=== PATIENT | female | born 1945 | race African-American/Black ===

== ENCOUNTER 2018-02-06 20:46 | Inpatient (IN) ==
[2018-02-06] MEDS ORDERED: DILTIAZEM 50 MG/10 ML VIAL IV STA (21:01)
[2018-02-06] MEDS ORDERED: MORPHINE 4 MG/1 ML VIAL IV STA (21:03)
[2018-02-06] MEDS ORDERED: ONDANSETRON 4 MG/2 ML VIAL IV STA (21:03)
[2018-02-06] MEDS ORDERED: DILTIAZEM 25 MG/5 ML VIAL IV ONE (21:11)
[2018-02-06 21:33] LABS: Basophils % 0.2 % (0.0-0.8); Eosinophils # 0.2 10*3/uL (0.0-0.87); Hematocrit 38.8 VOL% (35.7-47.0); Immature Granulocytes % 1.5 %; Immature Granulocytes Absolute 0.23 #; Lymphocytes % 6.5 % (21.3-54.2); Mean Corpuscular HGB Conc 33.5 GM/DL (32-36); Mean Corpuscular Hemoglobin 38 PG (27-34); Mean Corpuscular Volume 111.8 FL (87-102); Mean Platelet Volume 10.3 FL (9.6-12.0); Monocytes # 0.9 10*3/uL (0.11-0.8); Monocytes % 5.7 % (1.7-12.7); NRBC # 0.02 10*3/uL; Neutrophils # 13.1 10*3/uL (1.4-7.4); Neutrophils % 85.1 % (38.7-73.9); Platelet Count 156 T/CUMM (130-400); Red Blood Count 3.47 MC/CUMM (3.8-5.5); White Blood Count 15.4 T/CUMM (4-12)
[2018-02-06 21:41] LABS: PT Patient Result 10.7 SECS
[2018-02-06 21:54] LABS: Albumin 2.9 G/DL (3.4-5.0); Bilirubin,Total 0.4 MG/DL (0.2-1.0); Calcium 8.5 MG/DL (8.5-10.1); Osmolality,Calculated 291.5 MOS/KG (273-304); Potassium 3.3 MMOL/L (3.5-5.1); Total Protein 7.3 G/DL (6.4-8.3)
[2018-02-06] MEDS ORDERED: ALBUTEROL 2.5 MG/3 ML NEB RESP TX PRN (23:03)
[2018-02-06] MEDS ORDERED: ONDANSETRON 4 MG/2 ML VIAL IV PRN (23:03)
[2018-02-06] MEDS ORDERED: DEXTROSE 50% 25 GM/50 ML VIAL IV PRN (23:03)
[2018-02-06] MEDS ORDERED: GLUCAGON 1 MG VIAL IM PRN (23:03)
[2018-02-06] MEDS ORDERED: SODIUM CHLORIDE 0.9% 250 ML IV ONE (23:06)
[2018-02-06] MEDS ORDERED: MIDODRINE 5 MG TABLET PO STA (23:09)
[2018-02-06 23:15] LABS: Anisocytosis 1+; Macrocytosis 3+; Platelet Estimate Normal
[2018-02-06] MEDS ORDERED: METOPROLOL TARTRATE 5 MG/5 ML VIAL IV STA (23:34)
[2018-02-07] MEDS ORDERED: METOPROLOL TARTRATE 25 MG TABLET PO ONE (00:30)
[2018-02-07] MEDS ORDERED: METOPROLOL TARTRATE 5 MG/5 ML VIAL IV ONE (02:57)
[2018-02-07] MEDS: PHENYLEPHRINE DRIP 40 MG/250 ML PREMIX IV PRN ×2 (03:19→06:43)
[2018-02-07 07:31] LABS: Basophils % 0.2 % (0.0-0.8); Eosinophils # 0.1 10*3/uL (0.0-0.87); Eosinophils % 0.8 % (0.00-10.9); Hematocrit 40.5 VOL% (35.7-47.0); Hemoglobin 13.6 GM/DL (12.0-16.0); Immature Granulocytes % 0.9 %; Immature Granulocytes Absolute 0.15 #; Lymphocytes # 1.3 10*3/uL (1.4-4.0); Lymphocytes % 7.9 % (21.3-54.2); Mean Corpuscular HGB Conc 33.6 GM/DL (32-36); Mean Corpuscular Hemoglobin 38 PG (27-34); Mean Corpuscular Volume 112.2 FL (87-102); Mean Platelet Volume 10.4 FL (9.6-12.0); Monocytes # 1.1 10*3/uL (0.11-0.8); Monocytes % 6.7 % (1.7-12.7); NRBC # 0.06 10*3/uL; Neutrophils # 13.3 10*3/uL (1.4-7.4); Neutrophils % 83.5 % (38.7-73.9); Platelet Count 179 T/CUMM (130-400); Red Blood Count 3.61 MC/CUMM (3.8-5.5); Red Cell Distribution Width 18.6 % (9.3-17.3); White Blood Count 15.9 T/CUMM (4-12)
[2018-02-07] MEDS: INSULIN REGULAR 100 UNIT/ML SUBCUT SCH ×4 (07:48→21:58)
[2018-02-07 07:53] LABS: Calcium 8.6 MG/DL (8.5-10.1); Osmolality,Calculated 289.1 MOS/KG (273-304); Potassium 3.9 MMOL/L (3.5-5.1)
[2018-02-07 08:14] LABS: Hypochromasia 1+; Ovalocytes Slight
[2018-02-07 08:15] LABS: Macrocytosis 1+
[2018-02-07] MEDS: PHENYLEPHRINE INJ 160 MG in SODIUM CHLORIDE 0.9% 234 ML IV PRN ×3 (08:58→23:24)
[2018-02-07] MEDS ORDERED: PANTOPRAZOLE 40 MG TABLET PO SCH (09:00)
[2018-02-07] MEDS ORDERED: LEVOFLOXACIN 250 MG TABLET PO SCH (09:00)
[2018-02-07] MEDS ORDERED: MAGNESIUM CHLORIDE 64 MG TABLET PO SCH (09:00)
[2018-02-07] MEDS: NOREPINEPHRINE 16 MG in SODIUM CHLORIDE 0.9% 234 ML IV PRN (09:04)
[2018-02-07] MEDS: MIDODRINE 5 MG TABLET PO SCH ×3 (10:45→21:59)
[2018-02-07] MEDS: MULTIVITAMIN (CENTRUM) TABLET PO SCH (10:46)
[2018-02-07] MEDS: DIGOXIN 0.5 MG/2 ML AMP IV SCH ×2 (10:46→18:01)
[2018-02-07] MEDS: ASPIRIN EC 81 MG TABLET PO SCH (10:46)
[2018-02-07] MEDS: PANTOPRAZOLE 40 MG TABLET PO SCH ×2 (10:46→21:59)
[2018-02-07 11:42] LABS: Troponin I 0.048 NG/ML (0.00-0.045)
[2018-02-07] MEDS ORDERED: DIGOXIN 0.5 MG/2 ML AMP IV ONE ×2 (13:06→14:36)
[2018-02-07 17:34] LABS: Troponin I 0.102 NG/ML (0.00-0.045)
[2018-02-07] MEDS: MEROPENEM 500 MG in SODIUM CHLORIDE 0.9% 100 ML IV SCH (18:06)
[2018-02-07] MEDS: PIPERACILLIN/TAZOBACTAM 3,375 MG in SODIUM CHLORIDE 0.9% 100 ML IV SCH (19:03)
[2018-02-07] MEDS: INSULIN GLARGINE 100 UNIT/ML SUBCUT SCH (21:59)
[2018-02-07] MEDS: ACETAMINOPHEN 325 MG TABLET PO PRN (22:06)
[2018-02-08 00:56] LABS: Basophils % 0.2 % (0.0-0.8); Eosinophils # 0.1 10*3/uL (0.0-0.87); Eosinophils % 0.9 % (0.00-10.9); Hematocrit 33.9 VOL% (35.7-47.0); Hemoglobin 11.8 GM/DL (12.0-16.0); Immature Granulocytes % 0.9 %; Immature Granulocytes Absolute 0.13 #; Lymphocytes # 1.2 10*3/uL (1.4-4.0); Lymphocytes % 7.8 % (21.3-54.2); Mean Corpuscular HGB Conc 34.8 GM/DL (32-36); Mean Corpuscular Hemoglobin 38 PG (27-34); Mean Corpuscular Volume 109.4 FL (87-102); Mean Platelet Volume 10.2 FL (9.6-12.0); Monocytes # 0.9 10*3/uL (0.11-0.8); Monocytes % 5.9 % (1.7-12.7); NRBC # 0.02 10*3/uL; Neutrophils # 12.6 10*3/uL (1.4-7.4); Neutrophils % 84.3 % (38.7-73.9); Platelet Count 120 T/CUMM (130-400); White Blood Count 14.9 T/CUMM (4-12)
[2018-02-08 01:04] LABS: Calcium 7.8 MG/DL (8.5-10.1); Osmolality,Calculated 298.7 MOS/KG (273-304); Potassium 4.2 MMOL/L (3.5-5.1)
[2018-02-08 01:08] LABS: Troponin I 0.163 NG/ML (0.00-0.045)
[2018-02-08] MEDS: NOREPINEPHRINE 16 MG in SODIUM CHLORIDE 0.9% 234 ML IV PRN ×2 (03:39→22:57)
[2018-02-08] MEDS: PIPERACILLIN/TAZOBACTAM 3,375 MG in SODIUM CHLORIDE 0.9% 100 ML IV SCH (06:03)
[2018-02-08] MEDS: PHENYLEPHRINE INJ 160 MG in SODIUM CHLORIDE 0.9% 234 ML IV PRN ×2 (06:39→15:06)
[2018-02-08] MEDS ORDERED: VANCOMYCIN INJ 1,000 MG in SODIUM CHLORIDE 0.9% 250 ML IV ONE (08:09)
[2018-02-08] MEDS: INSULIN REGULAR 100 UNIT/ML SUBCUT SCH ×4 (08:10→21:24)
[2018-02-08] MEDS ORDERED: VANCOMYCIN INJ 750 MG in SODIUM CHLORIDE 0.9% 250 ML IV PRN (08:23)
[2018-02-08] MEDS ORDERED: methylPREDNISolone SOD SUC 125 MG/2 ML VIAL IV SCH (08:30)
[2018-02-08] MEDS ORDERED: VANCOMYCIN INJ 2,000 MG in SODIUM CHLORIDE 0.9% 500 ML IV ONE (09:00)
[2018-02-08 09:36] LABS: Lactic Acid 2.7 MMOL/L (0.4-2.0)
[2018-02-08] MEDS: ASPIRIN EC 81 MG TABLET PO SCH (11:06)
[2018-02-08] MEDS: ACETAMINOPHEN 325 MG TABLET PO PRN (11:06)
[2018-02-08] MEDS: MULTIVITAMIN (CENTRUM) TABLET PO SCH (11:06)
[2018-02-08] MEDS: PANTOPRAZOLE 40 MG TABLET PO SCH ×2 (11:06→21:24)
[2018-02-08] MEDS: MIDODRINE 5 MG TABLET PO SCH ×3 (11:06→21:24)
[2018-02-08] MEDS: HYDROCORTISONE 100 MG VIAL IV SCH ×2 (13:08→19:14)
[2018-02-08] MEDS: DIGOXIN 0.125 MG TABLET PO SCH (13:09)
[2018-02-08] MEDS: LIDOCAINE/PRILOCAINE CREAM 5 GM TUBE TOP SCH (14:07)
[2018-02-08] MEDS ORDERED: DIGOXIN 0.5 MG/2 ML AMP IV ONE (14:14)
[2018-02-08] MEDS: HEPARIN 5,000 UNIT/1 ML VIAL SUBCUT SCH ×2 (14:19→21:24)
[2018-02-08] MEDS: INSULIN GLARGINE 100 UNIT/ML SUBCUT SCH (21:24)
[2018-02-08] MEDS: MEROPENEM 500 MG in SODIUM CHLORIDE 0.9% 100 ML IV SCH (21:25)
[2018-02-08] MEDS: HEPARIN/NACL 0.9% 2 UNITS/ML 1,000 ML IV SCH (21:25)
[2018-02-09] MEDS: PHENYLEPHRINE INJ 160 MG in SODIUM CHLORIDE 0.9% 234 ML IV PRN (01:20)
[2018-02-09] MEDS: HYDROCORTISONE 100 MG VIAL IV SCH ×4 (02:02→17:23)
[2018-02-09 05:01] LABS: Basophils % 0.1 % (0.0-0.8); Hematocrit 35.8 VOL% (35.7-47.0); Hemoglobin 12.7 GM/DL (12.0-16.0); Immature Granulocytes % 0.7 %; Immature Granulocytes Absolute 0.13 #; Lymphocytes # 0.5 10*3/uL (1.4-4.0); Lymphocytes % 2.5 % (21.3-54.2); Mean Corpuscular HGB Conc 35.5 GM/DL (32-36); Mean Corpuscular Hemoglobin 39 PG (27-34); Mean Corpuscular Volume 109.1 FL (87-102); Mean Platelet Volume 10.8 FL (9.6-12.0); Monocytes # 0.4 10*3/uL (0.11-0.8); Monocytes % 2.3 % (1.7-12.7); NRBC # 0.07 10*3/uL; Neutrophils % 94.4 % (38.7-73.9); Platelet Count 143 T/CUMM (130-400); Red Blood Count 3.28 MC/CUMM (3.8-5.5); Red Cell Distribution Width 18.3 % (9.3-17.3)
[2018-02-09] MEDS: HEPARIN 5,000 UNIT/1 ML VIAL SUBCUT SCH ×3 (05:14→21:38)
[2018-02-09 05:21] LABS: Calcium 8.3 MG/DL (8.5-10.1); Osmolality,Calculated 292.5 MOS/KG (273-304); Potassium 4.3 MMOL/L (3.5-5.1)
[2018-02-09 05:32] LABS: Hypochromasia 1+; Lymphocytes 1 % (20-55); Macrocytosis 1+; Ovalocytes Slight; Segmented Neutrophils 98 % (50-85); Total Cells Counted 100
[2018-02-09 05:33] LABS: Platelet Estimate Adequate; Target Cells Slight
[2018-02-09] MEDS: INSULIN REGULAR 100 UNIT/ML SUBCUT SCH ×4 (08:37→21:38)
[2018-02-09] MEDS: ASPIRIN EC 81 MG TABLET PO SCH (08:38)
[2018-02-09] MEDS: PANTOPRAZOLE 40 MG TABLET PO SCH ×2 (08:38→21:38)
[2018-02-09] MEDS: MULTIVITAMIN (CENTRUM) TABLET PO SCH (08:38)
[2018-02-09] MEDS: ACETAMINOPHEN 325 MG TABLET PO PRN (10:23)
[2018-02-09] MEDS: DIGOXIN 0.125 MG TABLET PO SCH (12:33)
[2018-02-09] MEDS: MIDODRINE 5 MG TABLET PO SCH ×3 (12:33→21:40)
[2018-02-09] MEDS ORDERED: SODIUM CHLORIDE 0.9% 250 ML IV ONE (13:20)
[2018-02-09] MEDS ORDERED: MAGNESIUM HYDROXIDE SUSP 30 ML UDCUP PO ONE (15:35)
[2018-02-09] MEDS: POLYETHYLENE GLYCOL POWDER 17 GM PACK PO SCH (16:32)
[2018-02-09] MEDS: NOREPINEPHRINE 16 MG in SODIUM CHLORIDE 0.9% 234 ML IV PRN (17:24)
[2018-02-09] MEDS: INSULIN GLARGINE 100 UNIT/ML SUBCUT SCH (21:38)
[2018-02-09] MEDS: MEROPENEM 500 MG in SODIUM CHLORIDE 0.9% 100 ML IV SCH (21:39)
[2018-02-09] MEDS: HEPARIN/NACL 0.9% 2 UNITS/ML 1,000 ML IV SCH (21:41)
[2018-02-10] MEDS: HYDROCORTISONE 100 MG VIAL IV SCH ×5 (03:15→23:50)
[2018-02-10] MEDS: HEPARIN 5,000 UNIT/1 ML VIAL SUBCUT SCH ×3 (07:13→21:14)
[2018-02-10 07:46] LABS: Basophils % 0.1 % (0.0-0.8); Hematocrit 33.6 VOL% (35.7-47.0); Hemoglobin 11.6 GM/DL (12.0-16.0); Immature Granulocytes % 0.9 %; Immature Granulocytes Absolute 0.18 #; Lymphocytes # 0.5 10*3/uL (1.4-4.0); Lymphocytes % 2.2 % (21.3-54.2); Mean Corpuscular HGB Conc 34.5 GM/DL (32-36); Mean Corpuscular Hemoglobin 38 PG (27-34); Mean Corpuscular Volume 109.1 FL (87-102); Mean Platelet Volume 10.9 FL (9.6-12.0); Monocytes # 0.6 10*3/uL (0.11-0.8); Monocytes % 3.1 % (1.7-12.7); NRBC # 0.06 10*3/uL; Neutrophils # 19.1 10*3/uL (1.4-7.4); Neutrophils % 93.7 % (38.7-73.9); Platelet Count 132 T/CUMM (130-400); Red Blood Count 3.08 MC/CUMM (3.8-5.5); Red Cell Distribution Width 18.6 % (9.3-17.3); White Blood Count 20.4 T/CUMM (4-12)
[2018-02-10] MEDS: INSULIN REGULAR 100 UNIT/ML SUBCUT SCH ×4 (07:53→20:57)
[2018-02-10 08:18] LABS: Band Neutrophils 2 % (0-10); Calcium 8.6 MG/DL (8.5-10.1); Lymphocytes 2 % (20-55); Nucleated Red Blood Cells 1 (0-5); Osmolality,Calculated 305.4 MOS/KG (273-304); Potassium 4.5 MMOL/L (3.5-5.1); Segmented Neutrophils 94 % (50-85); Total Cells Counted 100
[2018-02-10 08:19] LABS: Hypochromasia 1+; Macrocytosis Slight; Platelet Estimate Normal
[2018-02-10] MEDS: PANTOPRAZOLE 40 MG TABLET PO SCH ×2 (10:33→20:59)
[2018-02-10] MEDS: ASPIRIN EC 81 MG TABLET PO SCH (10:34)
[2018-02-10] MEDS: MIDODRINE 5 MG TABLET PO SCH ×3 (10:34→20:59)
[2018-02-10] MEDS: MULTIVITAMIN (CENTRUM) TABLET PO SCH (10:34)
[2018-02-10] MEDS: POLYETHYLENE GLYCOL POWDER 17 GM PACK PO SCH (10:34)
[2018-02-10] MEDS: LIDOCAINE/PRILOCAINE CREAM 5 GM TUBE TOP SCH (10:34)
[2018-02-10] MEDS: ACETAMINOPHEN 325 MG TABLET PO PRN (12:44)
[2018-02-10] MEDS: DIGOXIN 0.125 MG TABLET PO SCH (12:47)
[2018-02-10] MEDS: NOREPINEPHRINE 16 MG in SODIUM CHLORIDE 0.9% 234 ML IV PRN (17:17)
[2018-02-10] MEDS: MEGESTROL 40 MG TABLET PO SCH (18:29)
[2018-02-10] MEDS: BISOPROLOL 5 MG TABLET PO SCH ×2 (18:37→18:48)
[2018-02-10] MEDS: INSULIN GLARGINE 100 UNIT/ML SUBCUT SCH (20:58)
[2018-02-10] MEDS ORDERED: VANCOMYCIN INJ 750 MG in SODIUM CHLORIDE 0.9% 250 ML IV ONE (21:00)
[2018-02-10] MEDS: MEROPENEM 500 MG in SODIUM CHLORIDE 0.9% 100 ML IV SCH (21:01)
[2018-02-11 04:37] LABS: Basophils % 0.1 % (0.0-0.8); Hematocrit 33.3 VOL% (35.7-47.0); Hemoglobin 11.4 GM/DL (12.0-16.0); Immature Granulocytes % 0.9 %; Immature Granulocytes Absolute 0.13 #; Lymphocytes # 0.5 10*3/uL (1.4-4.0); Lymphocytes % 3.2 % (21.3-54.2); Mean Corpuscular HGB Conc 34.2 GM/DL (32-36); Mean Corpuscular Hemoglobin 38 PG (27-34); Mean Corpuscular Volume 109.9 FL (87-102); Mean Platelet Volume 11.1 FL (9.6-12.0); Monocytes # 0.7 10*3/uL (0.11-0.8); Monocytes % 4.5 % (1.7-12.7); NRBC # 0.04 10*3/uL; Neutrophils # 13.1 10*3/uL (1.4-7.4); Neutrophils % 91.3 % (38.7-73.9); Platelet Count 118 T/CUMM (130-400); Red Blood Count 3.03 MC/CUMM (3.8-5.5); Red Cell Distribution Width 18.5 % (9.3-17.3); White Blood Count 14.4 T/CUMM (4-12)
[2018-02-11 04:54] LABS: Calcium 8.6 MG/DL (8.5-10.1); Osmolality,Calculated 295.3 MOS/KG (273-304); Potassium 4.2 MMOL/L (3.5-5.1)
[2018-02-11 05:42] LABS: Anisocytosis 3+; Band Neutrophils 3 % (0-10); Eosinophils 1 % (0-10); Hypochromasia 2+; Lymphocytes 3 % (20-55); Macrocytosis 2+; Microcytosis 1+; Ovalocytes Few; Platelet Estimate Decreased; Segmented Neutrophils 90 % (50-85); Target Cells 2+; Total Cells Counted 100
[2018-02-11] MEDS: HEPARIN 5,000 UNIT/1 ML VIAL SUBCUT SCH ×3 (05:53→21:57)
[2018-02-11] MEDS: HYDROCORTISONE 100 MG VIAL IV SCH ×3 (05:53→17:53)
[2018-02-11] MEDS: INSULIN REGULAR 100 UNIT/ML SUBCUT SCH ×4 (07:35→21:58)
[2018-02-11 07:36] LABS: S. Pneumo Serotype 1 2.1 mcg/mL (>=2.3); S. Pneumo Serotype 10A 0.8 mcg/mL (>=2.9); S. Pneumo Serotype 11A 0.1 mcg/mL (>=2.4); S. Pneumo Serotype 12F < 0.1 mcg/mL (>=0.6); S. Pneumo Serotype 14 1.7 mcg/mL (>=7.0); S. Pneumo Serotype 15B 1.2 mcg/mL (>=3.3); S. Pneumo Serotype 17F 0.8 mcg/mL (>=7.8); S. Pneumo Serotype 18C 0.2 mcg/mL (>=3.3); S. Pneumo Serotype 19A 1.9 mcg/mL (>=17.1); S. Pneumo Serotype 19F 2.6 mcg/mL (>=15.0); S. Pneumo Serotype 2 0.3 mcg/mL (>=1.0); S. Pneumo Serotype 20 0.2 mcg/mL (>=1.3); S. Pneumo Serotype 22F 3.1 mcg/mL (>=7.2); S. Pneumo Serotype 3 0.1 mcg/mL (>=1.8); S. Pneumo Serotype 33F 0.3 mcg/mL (>=1.7); S. Pneumo Serotype 4 < 0.1 mcg/mL (>=0.6); S. Pneumo Serotype 6B 0.8 mcg/mL (>=4.7); S. Pneumo Serotype 7F 1.4 mcg/mL (>=3.2); S. Pneumo Serotype 8 0.5 mcg/mL (>=2.9); S. Pneumo Serotype 9N 0.4 mcg/mL (>=9.2); S. Pneumo Serotype 9V 0.8 mcg/mL (>=2.6)
[2018-02-11] MEDS: HEPARIN/NACL 0.9% 2 UNITS/ML 1,000 ML IV SCH (07:36)
[2018-02-11] MEDS: MIDODRINE 5 MG TABLET PO SCH ×3 (09:47→21:57)
[2018-02-11] MEDS: MEGESTROL 40 MG TABLET PO SCH (09:47)
[2018-02-11] MEDS: BISOPROLOL 5 MG TABLET PO SCH (09:47)
[2018-02-11] MEDS: MULTIVITAMIN (CENTRUM) TABLET PO SCH (09:47)
[2018-02-11] MEDS: PANTOPRAZOLE 40 MG TABLET PO SCH ×2 (09:47→21:57)
[2018-02-11] MEDS: ASPIRIN EC 81 MG TABLET PO SCH (09:48)
[2018-02-11] MEDS: POLYETHYLENE GLYCOL POWDER 17 GM PACK PO SCH (09:49)
[2018-02-11] MEDS: FLUCONAZOLE 100 MG TABLET PO SCH (15:09)
[2018-02-11] MEDS: NYSTATIN 500,000 UNIT/5 ML UDCUP SWISH/SWAL SCH ×2 (16:41→21:57)
[2018-02-11] MEDS: INSULIN GLARGINE 100 UNIT/ML SUBCUT SCH (21:58)
[2018-02-12] MEDS: HYDROCORTISONE 100 MG VIAL IV SCH ×4 (00:21→17:11)
[2018-02-12 03:42] LABS: Basophils % 0.1 % (0.0-0.8); Hematocrit 31.4 VOL% (35.7-47.0); Immature Granulocytes Absolute 0.12 #; Lymphocytes # 0.5 10*3/uL (1.4-4.0); Lymphocytes % 4.1 % (21.3-54.2); Mean Corpuscular Hemoglobin 38 PG (27-34); Mean Corpuscular Volume 107.2 FL (87-102); Mean Platelet Volume 10.4 FL (9.6-12.0); Monocytes # 0.4 10*3/uL (0.11-0.8); Monocytes % 3.8 % (1.7-12.7); Neutrophils # 10.5 10*3/uL (1.4-7.4); Red Blood Count 2.93 MC/CUMM (3.8-5.5); Red Cell Distribution Width 18.6 % (9.3-17.3); White Blood Count 11.5 T/CUMM (4-12)
[2018-02-12 03:44] LABS: Platelet Count 91 T/CUMM (130-400)
[2018-02-12 04:25] LABS: Lymphocytes 5 % (20-55); Segmented Neutrophils 93 % (50-85)
[2018-02-12 04:28] LABS: Osmolality,Calculated 299.7 MOS/KG (273-304); Potassium 4.7 MMOL/L (3.5-5.1)
[2018-02-12] MEDS: HEPARIN 5,000 UNIT/1 ML VIAL SUBCUT SCH ×2 (04:30→17:11)
[2018-02-12] MEDS: ACETAMINOPHEN 325 MG TABLET PO PRN (04:30)
[2018-02-12 04:31] LABS: Reactive Lymphocytes 3+
[2018-02-12 04:32] LABS: Hypochromasia Slight; Platelet Estimate Decreased; Total Cells Counted 100
[2018-02-12] MEDS: LIDOCAINE/PRILOCAINE CREAM 5 GM TUBE TOP SCH ×2 (07:17→08:51)
[2018-02-12] MEDS: INSULIN REGULAR 100 UNIT/ML SUBCUT SCH ×4 (08:03→21:22)
[2018-02-12] MEDS ORDERED: ALBUMIN 25% 25 GM in PREMIX 1 EACH IV ONE (08:30)
[2018-02-12] MEDS: BISOPROLOL 5 MG TABLET PO SCH (08:58)
[2018-02-12] MEDS: PANTOPRAZOLE 40 MG TABLET PO SCH ×2 (08:58→21:22)
[2018-02-12] MEDS: MULTIVITAMIN (CENTRUM) TABLET PO SCH (08:58)
[2018-02-12] MEDS: MIDODRINE 5 MG TABLET PO SCH ×3 (08:58→21:22)
[2018-02-12] MEDS: ASPIRIN EC 81 MG TABLET PO SCH (08:59)
[2018-02-12] MEDS: FLUCONAZOLE 100 MG TABLET PO SCH (08:59)
[2018-02-12] MEDS: MEGESTROL 40 MG TABLET PO SCH (08:59)
[2018-02-12] MEDS: NYSTATIN 500,000 UNIT/5 ML UDCUP SWISH/SWAL SCH ×4 (08:59→21:23)
[2018-02-12] MEDS: POLYETHYLENE GLYCOL POWDER 17 GM PACK PO SCH (08:59)
[2018-02-12] MEDS ORDERED: CYCLOBENZAPRINE 10 MG TABLET PO ONE (09:00)
[2018-02-12] MEDS: HEPARIN/NACL 0.9% 2 UNITS/ML 1,000 ML IV SCH (11:24)
[2018-02-12] MEDS: FLUDROCORTISONE 0.1 MG TABLET PO SCH ×2 (15:30→21:22)
[2018-02-13] MEDS: HYDROCORTISONE 100 MG VIAL IV SCH ×5 (00:05→22:11)
[2018-02-13] MEDS: HEPARIN 5,000 UNIT/1 ML VIAL SUBCUT SCH ×2 (06:21→17:30)
[2018-02-13] MEDS: FLUCONAZOLE 100 MG TABLET PO SCH (09:02)
[2018-02-13] MEDS: FLUDROCORTISONE 0.1 MG TABLET PO SCH ×2 (09:02→22:14)
[2018-02-13] MEDS: MIDODRINE 5 MG TABLET PO SCH ×3 (09:02→22:13)
[2018-02-13] MEDS: BISOPROLOL 5 MG TABLET PO SCH (09:03)
[2018-02-13] MEDS: POLYETHYLENE GLYCOL POWDER 17 GM PACK PO SCH (09:05)
[2018-02-13] MEDS: ASPIRIN EC 81 MG TABLET PO SCH (09:05)
[2018-02-13] MEDS: MEGESTROL 40 MG TABLET PO SCH (09:05)
[2018-02-13] MEDS: PANTOPRAZOLE 40 MG TABLET PO SCH ×2 (09:05→22:14)
[2018-02-13] MEDS: MULTIVITAMIN (CENTRUM) TABLET PO SCH (09:05)
[2018-02-13] MEDS: NYSTATIN 500,000 UNIT/5 ML UDCUP SWISH/SWAL SCH ×4 (09:08→22:15)
[2018-02-13] MEDS: INSULIN REGULAR 100 UNIT/ML SUBCUT SCH ×4 (09:12→22:14)
[2018-02-13] MEDS: CYANOCOBALAMIN 5000 MCG SL SCH (09:14)
[2018-02-13] MEDS: Fluticasone/Vilanterol [Breo Ellipta 200-25 Mcg Inh] INH SCH (09:14)
[2018-02-14] MEDS: HYDROCORTISONE 100 MG VIAL IV SCH ×2 (03:10→09:48)
[2018-02-14] MEDS: HEPARIN 5,000 UNIT/1 ML VIAL SUBCUT SCH (06:04)
[2018-02-14] MEDS: POLYETHYLENE GLYCOL POWDER 17 GM PACK PO SCH (09:44)
[2018-02-14] MEDS: MIDODRINE 5 MG TABLET PO SCH (09:44)
[2018-02-14] MEDS: ASPIRIN EC 81 MG TABLET PO SCH (09:45)
[2018-02-14] MEDS: MEGESTROL 40 MG TABLET PO SCH (09:45)
[2018-02-14] MEDS: MULTIVITAMIN (CENTRUM) TABLET PO SCH (09:45)
[2018-02-14] MEDS: PANTOPRAZOLE 40 MG TABLET PO SCH (09:45)
[2018-02-14] MEDS: NYSTATIN 500,000 UNIT/5 ML UDCUP SWISH/SWAL SCH (09:46)
[2018-02-14] MEDS: FLUDROCORTISONE 0.1 MG TABLET PO SCH (09:46)
[2018-02-14] MEDS: BISOPROLOL 5 MG TABLET PO SCH (09:46)
[2018-02-14] MEDS: CYANOCOBALAMIN 5000 MCG SL SCH (09:47)
[2018-02-14] MEDS: INSULIN REGULAR 100 UNIT/ML SUBCUT SCH ×2 (09:52→13:45)
[2018-02-14 11:56] VITALS: BP 101/61
[2018-02-14] MEDS: Fluticasone/Vilanterol [Breo Ellipta 200-25 Mcg Inh] INH SCH (12:01)
== END 2018-02-14 14:52 | DRG 308 ==
LOC: EDBD → EDUNIT# → N.ED 20:46 → SUATTDRO 23:03 → N.EDINP 23:03 → N.ICU 23:49 → N.2E 02-12 14:13
PROVIDERS: ADMIT Internal Medicine Cardiovascular Disease; ATTEND Internal Medicine

== ENCOUNTER 2018-03-08 17:44 | Inpatient (IN) ==
[2018-03-08 18:54] LABS: Basophils % 0.2 % (0.0-0.8); Eosinophils % 0.2 % (0.00-10.9); Hemoglobin 8.9 GM/DL (12.0-16.0); Immature Granulocytes % 2.5 %; Lymphocytes # 1.2 10*3/uL (1.4-4.0); Lymphocytes % 9.8 % (21.3-54.2); Mean Corpuscular HGB Conc 31.8 GM/DL (32-36); Mean Corpuscular Hemoglobin 37 PG (27-34); Mean Corpuscular Volume 115.7 FL (87-102); Mean Platelet Volume 10.7 FL (9.6-12.0); Monocytes # 1.5 10*3/uL (0.11-0.8); Monocytes % 12.2 % (1.7-12.7); NRBC # 0.54 10*3/uL; Neutrophils % 75.1 % (38.7-73.9); Platelet Count 322 T/CUMM (130-400); Red Blood Count 2.42 MC/CUMM (3.8-5.5); Red Cell Distribution Width 17.8 % (9.3-17.3); White Blood Count 11.9 T/CUMM (4-12)
[2018-03-08] MEDS ORDERED: SODIUM CHLORIDE 0.9% 500 ML IV STA (19:19)
[2018-03-08] MEDS ORDERED: DILTIAZEM 50 MG/10 ML VIAL IV STA (19:20)
[2018-03-08] MEDS ORDERED: DILTIAZEM 25 MG/5 ML VIAL IV STA (19:27)
[2018-03-08] MEDS ORDERED: DILTIAZEM INJ 100 MG in SODIUM CHLORIDE 0.9% 100 ML IV SCH (19:30)
[2018-03-08 19:40] LABS: Alanine Aminotransferase 22 U/L (13-56); Albumin 2.7 G/DL (3.4-5.0); Alkaline Phosphatase 335 U/L (45-117); Amylase 60 U/L (25-115); Aspartate Amino Transferase 23 U/L (0-37); Blood Urea Nitrogen 11 MG/DL (7-18); Calcium 8.6 MG/DL (8.5-10.1); Glucose 184 MG/DL (74-106); Osmolality,Calculated 289.8 MOS/KG (273-304); Potassium 3.4 MMOL/L (3.5-5.1); Sodium 144 MMOL/L (136-145); Total Protein 6.4 G/DL (6.4-8.3)
[2018-03-08 19:43] LABS: INR 1.3; PT Patient Result 13.9 SECS
[2018-03-08 19:44] LABS: Troponin I 0.083 NG/ML (0.00-0.045)
[2018-03-08 19:49] LABS: Partial Thromboplastin Time 56.7 SECS (0-40)
[2018-03-08] MEDS ORDERED: traZODone 50 MG TABLET PO PRN (20:38)
[2018-03-08] MEDS ORDERED: NOREPINEPHRINE 8 MG in SODIUM CHLORIDE 0.9% 242 ML IV PRN (20:55)
[2018-03-08 21:25] LABS: Anisocytosis 1+; Microcytosis Slight; Polychromasia 1+
[2018-03-08 21:26] LABS: Platelet Estimate Adequate
[2018-03-08] MEDS ORDERED: VANCOMYCIN INJ 1,000 MG in SODIUM CHLORIDE 0.9% 250 ML IV ONE (23:30)
[2018-03-09] MEDS: PHENYLEPHRINE DRIP 40 MG/250 ML PREMIX IV PRN ×9 (00:30→20:46)
[2018-03-09] MEDS: FLUDROCORTISONE 0.1 MG TABLET PO SCH ×3 (01:03→21:35)
[2018-03-09] MEDS: MIDODRINE 5 MG TABLET PO SCH ×4 (01:03→21:34)
[2018-03-09] MEDS: INSULIN REGULAR 100 UNIT/ML SUBCUT SCH ×5 (01:04→21:33)
[2018-03-09] MEDS: PANTOPRAZOLE 40 MG TABLET PO SCH ×3 (01:04→21:34)
[2018-03-09] MEDS: ENOXAPARIN 100 MG/ML SYRINGE SUBCUT SCH ×2 (01:04→21:35)
[2018-03-09] MEDS: clonazePAM 0.5 MG TABLET PO SCH ×2 (01:04→21:35)
[2018-03-09 01:08] LABS: Basophils % 0.1 % (0.0-0.8); Eosinophils % 0.4 % (0.00-10.9); Hematocrit 26.7 VOL% (35.7-47.0); Hemoglobin 8.6 GM/DL (12.0-16.0); Immature Granulocytes % 1.8 %; Immature Granulocytes Absolute 0.18 #; Lymphocytes # 1.3 10*3/uL (1.4-4.0); Lymphocytes % 13.3 % (21.3-54.2); Mean Corpuscular HGB Conc 32.2 GM/DL (32-36); Mean Corpuscular Hemoglobin 37 PG (27-34); Mean Corpuscular Volume 116.1 FL (87-102); Mean Platelet Volume 10.4 FL (9.6-12.0); Monocytes # 1.3 10*3/uL (0.11-0.8); Monocytes % 12.5 % (1.7-12.7); Neutrophils # 7.2 10*3/uL (1.4-7.4); Neutrophils % 71.9 % (38.7-73.9); Platelet Count 284 T/CUMM (130-400); Red Cell Distribution Width 18.2 % (9.3-17.3); White Blood Count 10.1 T/CUMM (4-12)
[2018-03-09 01:27] LABS: Platelet Estimate Normal
[2018-03-09 01:28] LABS: Anisocytosis Slight; Macrocytosis 3+
[2018-03-09 01:39] LABS: Troponin I 0.083 NG/ML (0.00-0.045)
[2018-03-09 02:22] LABS: Thyroid Stimulating Hormone 3.43 uIU/ml (0.358-3.74)
[2018-03-09 02:26] LABS: % Iron Saturation 94.1 % (18-50); Ferritin 3600.7 ng/ml (8-252)
[2018-03-09 02:37] LABS: Sedimentation Rate-Westergren 48 MM/HR (0-30)
[2018-03-09 03:04] LABS: Folate 14.1 NG/ML (5.4-24.0); Vitamin B12 > 2000 PG/ML (211-911)
[2018-03-09] MEDS ORDERED: AMIODARONE INJ 450 MG in DEXTROSE 5% 241 ML IV SCH ×2 (03:30→09:30)
[2018-03-09] MEDS ORDERED: AMIODARONE INJ 150 MG in DEXTROSE 5% 100 ML IV ONE (03:30)
[2018-03-09 06:01] LABS: Troponin I 0.078 NG/ML (0.00-0.045)
[2018-03-09] MEDS ORDERED: CALCIUM ACETATE 667 MG CAPSULE PO SCH (08:00)
[2018-03-09] MEDS: MEGESTROL 40 MG TABLET PO SCH (08:03)
[2018-03-09] MEDS: ASPIRIN EC 81 MG TABLET PO SCH (08:04)
[2018-03-09] MEDS: POLYETHYLENE GLYCOL POWDER 17 GM PACK PO SCH (08:05)
[2018-03-09] MEDS ORDERED: NON-FORMULARY MEDICATION (Cyanocobalamin (Vitamin B-12) [Vitamin B-12] 5,000 MCG) SL SCH (09:00)
[2018-03-09 09:25] LABS: Hemoglobin A1 (Alkaline) 97.5 % (96.5-98.5); Hemoglobin A2 (Alkaline) 2.5 % (1.5-3.5)
[2018-03-09] MEDS ORDERED: DEXTROSE 5% IV ONE (11:00)
[2018-03-09] MEDS ORDERED: SODIUM PHOSPHATE IV ONE (11:00)
[2018-03-09] MEDS: ONDANSETRON 4 MG/2 ML VIAL IV PRN (14:33)
[2018-03-09] MEDS: BISOPROLOL 5 MG TABLET PO SCH ×2 (14:34→21:34)
[2018-03-09] MEDS: PHENYLEPHRINE INJ 160 MG in SODIUM CHLORIDE 0.9% 234 ML IV PRN (23:16)
[2018-03-10 05:58] LABS: Basophils % 0.2 % (0.0-0.8); Eosinophils # 0.2 10*3/uL (0.0-0.87); Eosinophils % 1.7 % (0.00-10.9); Hematocrit 27.5 VOL% (35.7-47.0); Hemoglobin 8.8 GM/DL (12.0-16.0); Immature Granulocytes % 2.8 %; Lymphocytes # 1.4 10*3/uL (1.4-4.0); Lymphocytes % 12.8 % (21.3-54.2); Mean Corpuscular Hemoglobin 37 PG (27-34); Mean Corpuscular Volume 116.5 FL (87-102); Mean Platelet Volume 10.2 FL (9.6-12.0); Monocytes # 1.2 10*3/uL (0.11-0.8); Monocytes % 10.9 % (1.7-12.7); NRBC # 1.03 10*3/uL; Neutrophils # 7.8 10*3/uL (1.4-7.4); Neutrophils % 71.6 % (38.7-73.9); Platelet Count 268 T/CUMM (130-400); Red Blood Count 2.36 MC/CUMM (3.8-5.5); Red Cell Distribution Width 18.8 % (9.3-17.3); White Blood Count 10.9 T/CUMM (4-12)
[2018-03-10 06:29] LABS: Calcium 7.5 MG/DL (8.5-10.1); Osmolality,Calculated 290.1 MOS/KG (273-304); Potassium 3.2 MMOL/L (3.5-5.1)
[2018-03-10 06:30] LABS: Hypochromasia 1+; Macrocytosis Slight; Ovalocytes Slight; Platelet Estimate Adequate; Polychromasia Slight
[2018-03-10] MEDS: INSULIN REGULAR 100 UNIT/ML SUBCUT SCH ×4 (07:44→20:51)
[2018-03-10] MEDS ORDERED: METOPROLOL TARTRATE 5 MG/5 ML VIAL IV ONE ×2 (07:49→09:55)
[2018-03-10] MEDS: CALCIUM ACETATE 667 MG CAPSULE PO SCH ×3 (08:03→17:21)
[2018-03-10] MEDS: PHENYLEPHRINE INJ 160 MG in SODIUM CHLORIDE 0.9% 234 ML IV PRN ×2 (08:08→17:44)
[2018-03-10] MEDS: MIDODRINE 5 MG TABLET PO SCH ×3 (08:11→20:50)
[2018-03-10] MEDS: BISOPROLOL 5 MG TABLET PO SCH ×2 (08:11→20:47)
[2018-03-10] MEDS: PANTOPRAZOLE 40 MG TABLET PO SCH ×2 (08:11→20:47)
[2018-03-10] MEDS: FLUDROCORTISONE 0.1 MG TABLET PO SCH ×2 (08:11→20:47)
[2018-03-10] MEDS: ASPIRIN EC 81 MG TABLET PO SCH (08:12)
[2018-03-10] MEDS: MEGESTROL 40 MG TABLET PO SCH (08:12)
[2018-03-10] MEDS: POLYETHYLENE GLYCOL POWDER 17 GM PACK PO SCH (08:12)
[2018-03-10] MEDS: LIDOCAINE/PRILOCAINE CREAM 5 GM TUBE TOP SCH (08:13)
[2018-03-10] MEDS ORDERED: POTASSIUM CHLORIDE 20 MEQ TABLET PO ONE (10:30)
[2018-03-10] MEDS ORDERED: DIGOXIN 0.5 MG/2 ML AMP IV ONE (10:56)
[2018-03-10] MEDS: ONDANSETRON 4 MG/2 ML VIAL IV PRN (12:15)
[2018-03-10] MEDS: DILTIAZEM 30 MG TABLET PO SCH ×2 (14:35→20:47)
[2018-03-10] MEDS ORDERED: HEPARIN 10,000 UNIT/10 ML VIAL IV SCH (19:30)
[2018-03-10] MEDS: clonazePAM 0.5 MG TABLET PO SCH (20:47)
[2018-03-10] MEDS: ACETAMINOPHEN/CODEINE 300-30 MG TABLET PO PRN (20:50)
[2018-03-10] MEDS: ENOXAPARIN 100 MG/ML SYRINGE SUBCUT SCH (20:51)
[2018-03-11] MEDS: DILTIAZEM 30 MG TABLET PO SCH ×4 (01:59→21:24)
[2018-03-11] MEDS: PHENYLEPHRINE INJ 160 MG in SODIUM CHLORIDE 0.9% 234 ML IV PRN ×2 (04:11→14:30)
[2018-03-11] MEDS: INSULIN REGULAR 100 UNIT/ML SUBCUT SCH ×4 (08:36→21:26)
[2018-03-11] MEDS: POLYETHYLENE GLYCOL POWDER 17 GM PACK PO SCH (08:44)
[2018-03-11] MEDS: CALCIUM ACETATE 667 MG CAPSULE PO SCH ×3 (08:44→17:08)
[2018-03-11] MEDS: PANTOPRAZOLE 40 MG TABLET PO SCH ×2 (08:44→21:24)
[2018-03-11] MEDS: MEGESTROL 40 MG TABLET PO SCH (08:44)
[2018-03-11] MEDS: ASPIRIN EC 81 MG TABLET PO SCH (08:44)
[2018-03-11] MEDS: DOCUSATE SODIUM 100 MG CAPSULE PO PRN (08:44)
[2018-03-11] MEDS: FLUDROCORTISONE 0.1 MG TABLET PO SCH ×2 (09:00→21:23)
[2018-03-11] MEDS: BISOPROLOL 5 MG TABLET PO SCH ×2 (09:00→21:26)
[2018-03-11] MEDS: MIDODRINE 5 MG TABLET PO SCH ×3 (09:20→21:23)
[2018-03-11] MEDS ORDERED: ALBUMIN 5% 12.5 GM in PREMIX 1 EACH IV ONE ×2 (10:00→16:44)
[2018-03-11] MEDS: WARFARIN 5 MG TABLET PO SCH (17:08)
[2018-03-11] MEDS: ACETAMINOPHEN/CODEINE 300-30 MG TABLET PO PRN (17:24)
[2018-03-11] MEDS: ENOXAPARIN 100 MG/ML SYRINGE SUBCUT SCH (21:23)
[2018-03-11] MEDS: clonazePAM 0.5 MG TABLET PO SCH (21:23)
[2018-03-12] MEDS: DILTIAZEM 30 MG TABLET PO SCH ×4 (02:45→20:58)
[2018-03-12 05:00] LABS: INR 1.4; PT Patient Result 14.7 SECS
[2018-03-12 05:03] LABS: Basophils # 0.1 10*3/uL (0.0-0.2); Basophils % 0.4 % (0.0-0.8); Eosinophils # 0.9 10*3/uL (0.0-0.87); Eosinophils % 6.6 % (0.00-10.9); Hematocrit 26.6 VOL% (35.7-47.0); Hemoglobin 8.2 GM/DL (12.0-16.0); Immature Granulocytes % 1.9 %; Immature Granulocytes Absolute 0.27 #; Lymphocytes # 0.9 10*3/uL (1.4-4.0); Lymphocytes % 6.1 % (21.3-54.2); Mean Corpuscular HGB Conc 30.8 GM/DL (32-36); Mean Corpuscular Hemoglobin 36 PG (27-34); Mean Corpuscular Volume 116.2 FL (87-102); Mean Platelet Volume 10.8 FL (9.6-12.0); Monocytes % 6.8 % (1.7-12.7); NRBC # 0.21 10*3/uL; Neutrophils # 11.1 10*3/uL (1.4-7.4); Neutrophils % 78.2 % (38.7-73.9); Platelet Count 234 T/CUMM (130-400); Red Blood Count 2.29 MC/CUMM (3.8-5.5); Red Cell Distribution Width 18.7 % (9.3-17.3); White Blood Count 14.2 T/CUMM (4-12)
[2018-03-12 05:27] LABS: Calcium 8.1 MG/DL (8.5-10.1); Osmolality,Calculated 288.3 MOS/KG (273-304); Potassium 3.6 MMOL/L (3.5-5.1)
[2018-03-12] MEDS: INSULIN REGULAR 100 UNIT/ML SUBCUT SCH ×4 (08:27→20:59)
[2018-03-12] MEDS: ASPIRIN EC 81 MG TABLET PO SCH (08:51)
[2018-03-12] MEDS: POLYETHYLENE GLYCOL POWDER 17 GM PACK PO SCH (08:51)
[2018-03-12] MEDS: PANTOPRAZOLE 40 MG TABLET PO SCH ×2 (08:51→20:59)
[2018-03-12] MEDS: MEGESTROL 40 MG TABLET PO SCH (08:51)
[2018-03-12] MEDS: CALCIUM ACETATE 667 MG CAPSULE PO SCH ×3 (08:52→17:23)
[2018-03-12] MEDS: BISACODYL 5 MG TABLET PO SCH (09:55)
[2018-03-12] MEDS ORDERED: ALBUMIN 25% 25 GM in PREMIX 1 EACH IV ONE (10:14)
[2018-03-12] MEDS ORDERED: DEXTROSE 50% 25 GM/50 ML VIAL IV PRN (11:19)
[2018-03-12] MEDS ORDERED: GLUCAGON 1 MG VIAL IM PRN (11:19)
[2018-03-12] MEDS: MIDODRINE 5 MG TABLET PO SCH ×3 (11:49→21:11)
[2018-03-12] MEDS: FLUDROCORTISONE 0.1 MG TABLET PO SCH ×2 (11:49→20:58)
[2018-03-12] MEDS: BISOPROLOL 5 MG TABLET PO SCH ×2 (11:49→20:59)
[2018-03-12] MEDS: INSULIN GLARGINE 100 UNIT/ML SUBCUT SCH (12:03)
[2018-03-12] MEDS: DIGOXIN 0.125 MG TABLET PO SCH (12:06)
[2018-03-12] MEDS: PHENYLEPHRINE INJ 160 MG in SODIUM CHLORIDE 0.9% 234 ML IV PRN (12:15)
[2018-03-12] MEDS: LIDOCAINE/PRILOCAINE CREAM 5 GM TUBE TOP SCH (12:16)
[2018-03-12] MEDS ORDERED: COSYNTROPIN 0.25 MG VIAL IV ONE (12:26)
[2018-03-12 12:38] LABS: Lactic Acid 2.7 MMOL/L (0.4-2.0)
[2018-03-12] MEDS ORDERED: VANCOMYCIN INJ 1,000 MG in SODIUM CHLORIDE 0.9% 250 ML IV PRN (15:20)
[2018-03-12] MEDS: MEROPENEM 500 MG in SODIUM CHLORIDE 0.9% 100 ML IV SCH (15:40)
[2018-03-12] MEDS ORDERED: VANCOMYCIN INJ 2,500 MG in SODIUM CHLORIDE 0.9% 500 ML IV ONE (17:00)
[2018-03-12] MEDS: WARFARIN 5 MG TABLET PO SCH (17:10)
[2018-03-12] MEDS: ENOXAPARIN 100 MG/ML SYRINGE SUBCUT SCH (20:59)
[2018-03-12] MEDS: clonazePAM 0.5 MG TABLET PO SCH (20:59)
[2018-03-13] MEDS: DILTIAZEM 30 MG TABLET PO SCH ×4 (03:01→21:10)
[2018-03-13 05:01] LABS: Basophils % 0.3 % (0.0-0.8); Eosinophils % 7.1 % (0.00-10.9); Hematocrit 25.7 VOL% (35.7-47.0); Hemoglobin 7.9 GM/DL (12.0-16.0); Immature Granulocytes % 1.5 %; Immature Granulocytes Absolute 0.21 #; Lymphocytes # 0.7 10*3/uL (1.4-4.0); Lymphocytes % 4.6 % (21.3-54.2); Mean Corpuscular HGB Conc 30.7 GM/DL (32-36); Mean Corpuscular Hemoglobin 36 PG (27-34); Mean Corpuscular Volume 117.9 FL (87-102); Mean Platelet Volume 11.1 FL (9.6-12.0); Monocytes # 1.1 10*3/uL (0.11-0.8); Monocytes % 7.6 % (1.7-12.7); NRBC # 0.13 10*3/uL; Neutrophils # 11.2 10*3/uL (1.4-7.4); Neutrophils % 78.9 % (38.7-73.9); Platelet Count 191 T/CUMM (130-400); Red Blood Count 2.18 MC/CUMM (3.8-5.5); Red Cell Distribution Width 19.2 % (9.3-17.3); White Blood Count 14.2 T/CUMM (4-12)
[2018-03-13 05:07] LABS: INR 1.4
[2018-03-13 05:17] LABS: Calcium 8.2 MG/DL (8.5-10.1); Osmolality,Calculated 283.4 MOS/KG (273-304); Potassium 3.6 MMOL/L (3.5-5.1)
[2018-03-13 05:29] LABS: Band Neutrophils 2 % (0-10); Eosinophils 4 % (0-10); Lymphocytes 1 % (20-55); Nucleated Red Blood Cells 1 (0-5); Segmented Neutrophils 83 % (50-85); Total Cells Counted 100
[2018-03-13 05:30] LABS: Anisocytosis 1+; Hypochromasia 1+; Macrocytosis 1+; Ovalocytes Slight; Platelet Estimate Adequate
[2018-03-13] MEDS ORDERED: COSYNTROPIN 0.25 MG VIAL IV ONE (08:00)
[2018-03-13] MEDS: INSULIN GLARGINE 100 UNIT/ML SUBCUT SCH ×2 (08:16→21:11)
[2018-03-13] MEDS: INSULIN REGULAR 100 UNIT/ML SUBCUT SCH ×4 (08:16→21:11)
[2018-03-13] MEDS: BISOPROLOL 5 MG TABLET PO SCH ×2 (08:20→21:11)
[2018-03-13] MEDS: MIDODRINE 5 MG TABLET PO SCH ×3 (08:21→21:10)
[2018-03-13] MEDS: BISACODYL 5 MG TABLET PO SCH (08:21)
[2018-03-13] MEDS: FLUDROCORTISONE 0.1 MG TABLET PO SCH ×2 (08:21→21:10)
[2018-03-13] MEDS: PANTOPRAZOLE 40 MG TABLET PO SCH ×2 (08:22→21:19)
[2018-03-13] MEDS: CALCIUM ACETATE 667 MG CAPSULE PO SCH ×3 (08:28→16:39)
[2018-03-13] MEDS: POLYETHYLENE GLYCOL POWDER 17 GM PACK PO SCH (08:28)
[2018-03-13] MEDS ORDERED: MAGNESIUM CITRATE 300 ML BOTTLE PO ONE (08:47)
[2018-03-13] MEDS: HYDROCORTISONE 100 MG VIAL IV SCH ×3 (09:25→21:11)
[2018-03-13] MEDS: ASPIRIN EC 81 MG TABLET PO SCH (09:31)
[2018-03-13 11:05] LABS: Folate 7.6 NG/ML (5.4-24.0); Vitamin B12 > 2000 PG/ML (211-911)
[2018-03-13] MEDS: PHENYLEPHRINE INJ 160 MG in SODIUM CHLORIDE 0.9% 234 ML IV PRN (16:37)
[2018-03-13] MEDS: MEROPENEM 500 MG in SODIUM CHLORIDE 0.9% 100 ML IV SCH (16:39)
[2018-03-13] MEDS ORDERED: WARFARIN 7.5 MG TABLET PO SCH (18:00)
[2018-03-13] MEDS: ENOXAPARIN 100 MG/ML SYRINGE SUBCUT SCH (21:11)
[2018-03-13] MEDS: clonazePAM 0.5 MG TABLET PO SCH (21:11)
[2018-03-14] MEDS: DILTIAZEM 30 MG TABLET PO SCH ×4 (02:39→21:26)
[2018-03-14] MEDS: HYDROCORTISONE 100 MG VIAL IV SCH ×4 (05:38→21:27)
[2018-03-14 06:24] LABS: Basophils % 0.2 % (0.0-0.8); Eosinophils % 0.2 % (0.00-10.9); Hemoglobin 8.8 GM/DL (12.0-16.0); Immature Granulocytes % 2.4 %; Immature Granulocytes Absolute 0.31 #; Lymphocytes # 0.6 10*3/uL (1.4-4.0); Lymphocytes % 4.3 % (21.3-54.2); Mean Corpuscular HGB Conc 31.4 GM/DL (32-36); Mean Corpuscular Hemoglobin 37 PG (27-34); Mean Corpuscular Volume 116.7 FL (87-102); Mean Platelet Volume 11.4 FL (9.6-12.0); Monocytes # 0.5 10*3/uL (0.11-0.8); Monocytes % 3.5 % (1.7-12.7); NRBC # 0.08 10*3/uL; Neutrophils # 11.6 10*3/uL (1.4-7.4); Neutrophils % 89.4 % (38.7-73.9); Platelet Count 211 T/CUMM (130-400); Red Cell Distribution Width 19.3 % (9.3-17.3)
[2018-03-14 06:34] LABS: INR 2.3
[2018-03-14 06:35] LABS: INR 2.3
[2018-03-14 06:36] LABS: PT Patient Result 23.6 SECS; PT Patient Result 23.8 SECS
[2018-03-14 06:56] LABS: Calcium 8.5 MG/DL (8.5-10.1); Osmolality,Calculated 284.8 MOS/KG (273-304); Potassium 4.3 MMOL/L (3.5-5.1)
[2018-03-14 07:10] LABS: Hypochromasia 1+; Lymphocytes 8 % (20-55); Macrocytosis Slight; Ovalocytes Slight; Platelet Estimate Adequate; Segmented Neutrophils 90 % (50-85); Total Cells Counted 100
[2018-03-14 07:11] LABS: Polychromasia Slight
[2018-03-14] MEDS: MIDODRINE 5 MG TABLET PO SCH ×3 (10:02→21:26)
[2018-03-14] MEDS: BISOPROLOL 5 MG TABLET PO SCH ×2 (10:04→21:26)
[2018-03-14] MEDS: FLUDROCORTISONE 0.1 MG TABLET PO SCH ×2 (10:04→21:26)
[2018-03-14] MEDS: CALCIUM ACETATE 667 MG CAPSULE PO SCH ×3 (10:04→16:20)
[2018-03-14] MEDS: PANTOPRAZOLE 40 MG TABLET PO SCH ×2 (10:04→21:26)
[2018-03-14] MEDS: DIGOXIN 0.125 MG TABLET PO SCH (10:05)
[2018-03-14] MEDS: ASPIRIN EC 81 MG TABLET PO SCH (10:07)
[2018-03-14] MEDS: BISACODYL 5 MG TABLET PO SCH (10:07)
[2018-03-14] MEDS: INSULIN REGULAR 100 UNIT/ML SUBCUT SCH ×4 (10:11→21:33)
[2018-03-14] MEDS: INSULIN GLARGINE 100 UNIT/ML SUBCUT SCH ×2 (10:11→21:32)
[2018-03-14] MEDS: POLYETHYLENE GLYCOL POWDER 17 GM PACK PO SCH (10:11)
[2018-03-14] MEDS: ACETAMINOPHEN/CODEINE 300-30 MG TABLET PO PRN (10:34)
[2018-03-14] MEDS: ALBUMIN 25% 25 GM in PREMIX 1 EACH IV SCH ×2 (12:58→18:36)
[2018-03-14] MEDS: ZINC OXIDE PASTE 113 GM TUBE TOP SCH ×2 (12:58→21:33)
[2018-03-14] MEDS: MEROPENEM 500 MG in SODIUM CHLORIDE 0.9% 100 ML IV SCH (16:20)
[2018-03-14] MEDS ORDERED: WARFARIN 7.5 MG TABLET PO SCH (18:00)
[2018-03-14] MEDS: clonazePAM 0.5 MG TABLET PO SCH (21:26)
[2018-03-15] MEDS: ALBUMIN 25% 25 GM in PREMIX 1 EACH IV SCH ×3 (04:28→18:30)
[2018-03-15] MEDS: HYDROCORTISONE 100 MG VIAL IV SCH ×4 (04:28→18:00)
[2018-03-15 04:39] LABS: Basophils % 0.1 % (0.0-0.8); Eosinophils % 0.1 % (0.00-10.9); Hematocrit 27.3 VOL% (35.7-47.0); Hemoglobin 8.6 GM/DL (12.0-16.0); Immature Granulocytes % 2.6 %; Immature Granulocytes Absolute 0.39 #; Lymphocytes # 0.7 10*3/uL (1.4-4.0); Lymphocytes % 4.4 % (21.3-54.2); Mean Corpuscular HGB Conc 31.5 GM/DL (32-36); Mean Corpuscular Hemoglobin 36 PG (27-34); Mean Corpuscular Volume 115.2 FL (87-102); Mean Platelet Volume 10.9 FL (9.6-12.0); Monocytes # 0.7 10*3/uL (0.11-0.8); Monocytes % 4.8 % (1.7-12.7); NRBC # 0.08 10*3/uL; Neutrophils # 13.3 10*3/uL (1.4-7.4); Platelet Count 220 T/CUMM (130-400); Red Blood Count 2.37 MC/CUMM (3.8-5.5); Red Cell Distribution Width 19.3 % (9.3-17.3); White Blood Count 15.1 T/CUMM (4-12)
[2018-03-15 05:17] LABS: Calcium 8.9 MG/DL (8.5-10.1); Osmolality,Calculated 282.8 MOS/KG (273-304); Potassium 4.3 MMOL/L (3.5-5.1)
[2018-03-15 05:24] LABS: INR 4.7
[2018-03-15 05:30] LABS: PT Patient Result 46.5 SECS
[2018-03-15 05:48] LABS: Band Neutrophils 1 % (0-10); Lymphocytes 4 % (20-55); Platelet Estimate Normal; Segmented Neutrophils 90 % (50-85); Total Cells Counted 100
[2018-03-15] MEDS: INSULIN REGULAR 100 UNIT/ML SUBCUT SCH ×4 (07:45→21:40)
[2018-03-15] MEDS: DILTIAZEM 30 MG TABLET PO SCH ×3 (08:31→21:39)
[2018-03-15] MEDS: BISACODYL 5 MG TABLET PO SCH (08:31)
[2018-03-15] MEDS: ZINC OXIDE PASTE 113 GM TUBE TOP SCH ×2 (08:31→21:41)
[2018-03-15] MEDS: LIDOCAINE/PRILOCAINE CREAM 5 GM TUBE TOP SCH (08:31)
[2018-03-15] MEDS: ASPIRIN EC 81 MG TABLET PO SCH (08:31)
[2018-03-15] MEDS: FLUDROCORTISONE 0.1 MG TABLET PO SCH ×2 (08:31→21:39)
[2018-03-15] MEDS: CALCIUM ACETATE 667 MG CAPSULE PO SCH ×3 (08:31→16:01)
[2018-03-15] MEDS: PANTOPRAZOLE 40 MG TABLET PO SCH ×2 (08:32→21:38)
[2018-03-15] MEDS: POLYETHYLENE GLYCOL POWDER 17 GM PACK PO SCH (08:32)
[2018-03-15] MEDS: MIDODRINE 5 MG TABLET PO SCH ×3 (08:32→21:38)
[2018-03-15] MEDS: INSULIN GLARGINE 100 UNIT/ML SUBCUT SCH ×2 (08:32→21:41)
[2018-03-15] MEDS: BISOPROLOL 5 MG TABLET PO SCH ×2 (08:32→21:40)
[2018-03-15] MEDS ORDERED: BISACODYL 10 MG SUPP RECTAL PRN (12:12)
[2018-03-15] MEDS ORDERED: VANCOMYCIN INJ 1,000 MG in SODIUM CHLORIDE 0.9% 250 ML IV ONE (15:00)
[2018-03-15] MEDS: MEROPENEM 500 MG in SODIUM CHLORIDE 0.9% 100 ML IV SCH (16:05)
[2018-03-15] MEDS ORDERED: WARFARIN 2 MG TABLET PO SCH (18:00)
[2018-03-15] MEDS: clonazePAM 0.5 MG TABLET PO SCH (21:38)
[2018-03-16] MEDS: HYDROCORTISONE 100 MG VIAL IV SCH ×3 (02:52→18:38)
[2018-03-16] MEDS: ALBUMIN 25% 25 GM in PREMIX 1 EACH IV SCH (02:53)
[2018-03-16 03:43] LABS: Basophils % 0.2 % (0.0-0.8); Hematocrit 26.2 VOL% (35.7-47.0); Hemoglobin 8.3 GM/DL (12.0-16.0); Immature Granulocytes % 1.7 %; Immature Granulocytes Absolute 0.23 #; Lymphocytes # 0.5 10*3/uL (1.4-4.0); Lymphocytes % 3.8 % (21.3-54.2); Mean Corpuscular HGB Conc 31.7 GM/DL (32-36); Mean Corpuscular Hemoglobin 36 PG (27-34); Mean Corpuscular Volume 114.4 FL (87-102); Mean Platelet Volume 11.1 FL (9.6-12.0); Monocytes # 1.1 10*3/uL (0.11-0.8); Monocytes % 8.2 % (1.7-12.7); NRBC # 0.07 10*3/uL; Neutrophils # 11.5 10*3/uL (1.4-7.4); Neutrophils % 86.1 % (38.7-73.9); Platelet Count 174 T/CUMM (130-400); Red Blood Count 2.29 MC/CUMM (3.8-5.5); Red Cell Distribution Width 19.6 % (9.3-17.3); White Blood Count 13.3 T/CUMM (4-12)
[2018-03-16 03:55] LABS: Calcium 8.7 MG/DL (8.5-10.1); Osmolality,Calculated 276.1 MOS/KG (273-304); Potassium 3.8 MMOL/L (3.5-5.1)
[2018-03-16 04:04] LABS: PT Patient Result 55.8 SECS
[2018-03-16 04:05] LABS: INR 5.6
[2018-03-16 04:21] LABS: Band Neutrophils 2 % (0-10); Lymphocytes 7 % (20-55); Macrocytosis 2+; Platelet Estimate Normal; Segmented Neutrophils 84 % (50-85); Total Cells Counted 100
[2018-03-16 04:22] LABS: Hypochromasia Slight; Polychromasia Few; Target Cells Few
[2018-03-16 04:23] LABS: Giant Platelets Few; Ovalocytes 1+
[2018-03-16] MEDS: INSULIN REGULAR 100 UNIT/ML SUBCUT SCH ×4 (07:35→21:21)
[2018-03-16] MEDS: POLYETHYLENE GLYCOL POWDER 17 GM PACK PO SCH (08:41)
[2018-03-16] MEDS: CALCIUM ACETATE 667 MG CAPSULE PO SCH ×3 (08:41→16:48)
[2018-03-16] MEDS: DIGOXIN 0.125 MG TABLET PO SCH (08:42)
[2018-03-16] MEDS: MIDODRINE 5 MG TABLET PO SCH ×3 (08:42→21:20)
[2018-03-16] MEDS: DILTIAZEM 30 MG TABLET PO SCH ×3 (08:42→21:21)
[2018-03-16] MEDS: FLUDROCORTISONE 0.1 MG TABLET PO SCH ×2 (08:43→21:20)
[2018-03-16] MEDS: ZINC OXIDE PASTE 113 GM TUBE TOP SCH ×2 (08:43→22:14)
[2018-03-16] MEDS: BISACODYL 5 MG TABLET PO SCH (08:43)
[2018-03-16] MEDS: BISOPROLOL 5 MG TABLET PO SCH ×2 (08:43→21:21)
[2018-03-16] MEDS: PANTOPRAZOLE 40 MG TABLET PO SCH ×2 (08:43→21:21)
[2018-03-16] MEDS: ASPIRIN EC 81 MG TABLET PO SCH (08:45)
[2018-03-16] MEDS: INSULIN GLARGINE 100 UNIT/ML SUBCUT SCH (08:49)
[2018-03-16] MEDS ORDERED: PHYTONADIONE 5 MG/5 ML ORAL.SYR PO SCH (11:30)
[2018-03-16] MEDS: MEROPENEM 500 MG in SODIUM CHLORIDE 0.9% 100 ML IV SCH (15:44)
[2018-03-17] MEDS: HYDROCORTISONE 100 MG VIAL IV SCH ×3 (02:29→18:26)
[2018-03-17 06:14] LABS: Basophils % 0.1 % (0.0-0.8); Hematocrit 24.6 VOL% (35.7-47.0); Immature Granulocytes Absolute 0.24 #; Lymphocytes # 0.5 10*3/uL (1.4-4.0); Lymphocytes % 4.1 % (21.3-54.2); Mean Corpuscular HGB Conc 32.5 GM/DL (32-36); Mean Corpuscular Hemoglobin 37 PG (27-34); Mean Platelet Volume 10.9 FL (9.6-12.0); Monocytes # 0.8 10*3/uL (0.11-0.8); Monocytes % 6.6 % (1.7-12.7); NRBC # 0.03 10*3/uL; Neutrophils # 10.6 10*3/uL (1.4-7.4); Neutrophils % 87.2 % (38.7-73.9); Platelet Count 131 T/CUMM (130-400); Red Blood Count 2.14 MC/CUMM (3.8-5.5); White Blood Count 12.1 T/CUMM (4-12)
[2018-03-17 06:35] LABS: Band Neutrophils 1 % (0-10); Lymphocytes 13 % (20-55); Platelet Estimate Adequate; Polychromasia Few; Segmented Neutrophils 84 % (50-85); Total Cells Counted 100
[2018-03-17 06:39] LABS: INR 1.5; PT Patient Result 15.4 SECS
[2018-03-17 06:41] LABS: Calcium 8.6 MG/DL (8.5-10.1); Osmolality,Calculated 275.5 MOS/KG (273-304); Potassium 4.3 MMOL/L (3.5-5.1)
[2018-03-17] MEDS: LIDOCAINE/PRILOCAINE CREAM 5 GM TUBE TOP SCH (08:28)
[2018-03-17] MEDS: INSULIN REGULAR 100 UNIT/ML SUBCUT SCH ×4 (08:29→20:27)
[2018-03-17] MEDS: INSULIN GLARGINE 100 UNIT/ML SUBCUT SCH (08:29)
[2018-03-17] MEDS: CALCIUM ACETATE 667 MG CAPSULE PO SCH ×3 (08:30→17:19)
[2018-03-17] MEDS: ASPIRIN EC 81 MG TABLET PO SCH (08:30)
[2018-03-17] MEDS: BISACODYL 5 MG TABLET PO SCH (08:30)
[2018-03-17] MEDS: ZINC OXIDE PASTE 113 GM TUBE TOP SCH ×2 (08:31→21:40)
[2018-03-17] MEDS: ENOXAPARIN 120 MG/0.8 ML SYRINGE SUBCUT SCH (08:38)
[2018-03-17] MEDS: FLUDROCORTISONE 0.1 MG TABLET PO SCH ×2 (13:12→20:28)
[2018-03-17] MEDS: MIDODRINE 5 MG TABLET PO SCH ×3 (13:12→20:28)
[2018-03-17] MEDS: POLYETHYLENE GLYCOL POWDER 17 GM PACK PO SCH (13:13)
[2018-03-17] MEDS: BISOPROLOL 5 MG TABLET PO SCH ×2 (13:13→20:28)
[2018-03-17] MEDS: PANTOPRAZOLE 40 MG TABLET PO SCH ×2 (13:13→20:28)
[2018-03-17] MEDS: DILTIAZEM 30 MG TABLET PO SCH ×3 (13:13→20:28)
[2018-03-17] MEDS ORDERED: VANCOMYCIN INJ 1,000 MG in SODIUM CHLORIDE 0.9% 250 ML IV ONE (14:00)
[2018-03-17] MEDS: MEROPENEM 500 MG in SODIUM CHLORIDE 0.9% 100 ML IV SCH (16:12)
[2018-03-17] MEDS: WARFARIN 4 MG TABLET PO SCH (17:19)
[2018-03-18] MEDS: HYDROCORTISONE 100 MG VIAL IV SCH ×2 (03:04→15:32)
[2018-03-18 04:02] LABS: Basophils % 0.1 % (0.0-0.8); Eosinophils % 0.1 % (0.00-10.9); Hematocrit 27.9 VOL% (35.7-47.0); Hemoglobin 8.9 GM/DL (12.0-16.0); Immature Granulocytes % 2.6 %; Immature Granulocytes Absolute 0.37 #; Lymphocytes # 0.5 10*3/uL (1.4-4.0); Lymphocytes % 3.6 % (21.3-54.2); Mean Corpuscular HGB Conc 31.9 GM/DL (32-36); Mean Corpuscular Hemoglobin 37 PG (27-34); Mean Corpuscular Volume 115.8 FL (87-102); Mean Platelet Volume 11.2 FL (9.6-12.0); Monocytes # 1.1 10*3/uL (0.11-0.8); Monocytes % 7.4 % (1.7-12.7); NRBC # 0.02 10*3/uL; Neutrophils # 12.4 10*3/uL (1.4-7.4); Neutrophils % 86.2 % (38.7-73.9); Platelet Count 169 T/CUMM (130-400); Red Blood Count 2.41 MC/CUMM (3.8-5.5); White Blood Count 14.4 T/CUMM (4-12)
[2018-03-18 04:08] LABS: Osmolality,Calculated 277.2 MOS/KG (273-304)
[2018-03-18 04:11] LABS: INR 1.2; PT Patient Result 12.4 SECS
[2018-03-18 04:26] LABS: Anisocytosis Slight; Band Neutrophils 3 % (0-10); Lymphocytes 14 % (20-55); Macrocytosis 3+; Platelet Estimate Normal; Segmented Neutrophils 80 % (50-85); Total Cells Counted 100
[2018-03-18] MEDS: INSULIN REGULAR 100 UNIT/ML SUBCUT SCH ×4 (07:35→20:48)
[2018-03-18] MEDS: ENOXAPARIN 120 MG/0.8 ML SYRINGE SUBCUT SCH (08:35)
[2018-03-18] MEDS: CALCIUM ACETATE 667 MG CAPSULE PO SCH ×3 (08:35→17:34)
[2018-03-18] MEDS: FLUDROCORTISONE 0.1 MG TABLET PO SCH ×2 (08:55→20:36)
[2018-03-18] MEDS: DIGOXIN 0.125 MG TABLET PO SCH (08:55)
[2018-03-18] MEDS: BISOPROLOL 5 MG TABLET PO SCH ×2 (08:55→20:36)
[2018-03-18] MEDS: DILTIAZEM 30 MG TABLET PO SCH ×3 (08:55→20:36)
[2018-03-18] MEDS: MIDODRINE 5 MG TABLET PO SCH ×3 (08:55→20:37)
[2018-03-18] MEDS: DOCUSATE SODIUM 100 MG CAPSULE PO PRN ×2 (08:56→08:57)
[2018-03-18] MEDS: INSULIN GLARGINE 100 UNIT/ML SUBCUT SCH (08:56)
[2018-03-18] MEDS: PANTOPRAZOLE 40 MG TABLET PO SCH ×2 (08:56→20:36)
[2018-03-18] MEDS: ASPIRIN EC 81 MG TABLET PO SCH (08:56)
[2018-03-18] MEDS: POLYETHYLENE GLYCOL POWDER 17 GM PACK PO SCH (08:57)
[2018-03-18] MEDS: BISACODYL 5 MG TABLET PO SCH (09:07)
[2018-03-18] MEDS: AMOXICILLIN/CLAV 500 MG TABLET PO SCH ×3 (10:18→20:35)
[2018-03-18] MEDS: ZINC OXIDE PASTE 113 GM TUBE TOP SCH ×2 (11:53→20:48)
[2018-03-18] MEDS ORDERED: AMOXICILLIN/CLAV 500 MG TABLET PO SCH (15:00)
[2018-03-18] MEDS: WARFARIN 4 MG TABLET PO SCH (17:34)
[2018-03-19] MEDS: HYDROCORTISONE 100 MG VIAL IV SCH ×2 (02:05→15:15)
[2018-03-19 06:08] LABS: Basophils % 0.1 % (0.0-0.8); Hematocrit 28.7 VOL% (35.7-47.0); Hemoglobin 8.9 GM/DL (12.0-16.0); Immature Granulocytes % 1.8 %; Immature Granulocytes Absolute 0.38 #; Lymphocytes # 0.5 10*3/uL (1.4-4.0); Lymphocytes % 2.6 % (21.3-54.2); Mean Corpuscular Hemoglobin 35 PG (27-34); Mean Corpuscular Volume 113.9 FL (87-102); Mean Platelet Volume 11.8 FL (9.6-12.0); Monocytes # 1.1 10*3/uL (0.11-0.8); Monocytes % 5.1 % (1.7-12.7); Neutrophils # 19.1 10*3/uL (1.4-7.4); Neutrophils % 90.4 % (38.7-73.9); Platelet Count 196 T/CUMM (130-400); Red Blood Count 2.52 MC/CUMM (3.8-5.5); Red Cell Distribution Width 18.5 % (9.3-17.3); White Blood Count 21.2 T/CUMM (4-12)
[2018-03-19 06:29] LABS: INR 1.2; PT Patient Result 12.6 SECS
[2018-03-19 07:08] LABS: Calcium 8.1 MG/DL (8.5-10.1); Osmolality,Calculated 276.4 MOS/KG (273-304); Potassium 4.2 MMOL/L (3.5-5.1)
[2018-03-19 08:05] LABS: Lymphocytes 11 % (20-55); Segmented Neutrophils 86 % (50-85); Total Cells Counted 100
[2018-03-19 08:06] LABS: Anisocytosis Slight; Macrocytosis 3+; Platelet Estimate Normal
[2018-03-19] MEDS: POLYETHYLENE GLYCOL POWDER 17 GM PACK PO SCH (08:21)
[2018-03-19] MEDS: INSULIN GLARGINE 100 UNIT/ML SUBCUT SCH (08:23)
[2018-03-19] MEDS: BISACODYL 5 MG TABLET PO SCH (08:24)
[2018-03-19] MEDS: AMOXICILLIN/CLAV 500 MG TABLET PO SCH ×3 (08:24→20:13)
[2018-03-19] MEDS: ENOXAPARIN 120 MG/0.8 ML SYRINGE SUBCUT SCH (08:24)
[2018-03-19] MEDS: FLUDROCORTISONE 0.1 MG TABLET PO SCH ×2 (08:24→20:13)
[2018-03-19] MEDS: INSULIN REGULAR 100 UNIT/ML SUBCUT SCH ×4 (08:25→20:40)
[2018-03-19] MEDS: MIDODRINE 5 MG TABLET PO SCH ×3 (08:25→20:14)
[2018-03-19] MEDS: CALCIUM ACETATE 667 MG CAPSULE PO SCH ×3 (08:25→17:50)
[2018-03-19] MEDS: BISOPROLOL 5 MG TABLET PO SCH ×2 (08:25→20:14)
[2018-03-19] MEDS: ASPIRIN EC 81 MG TABLET PO SCH (08:25)
[2018-03-19] MEDS: PANTOPRAZOLE 40 MG TABLET PO SCH ×2 (08:25→20:13)
[2018-03-19] MEDS: DILTIAZEM 30 MG TABLET PO SCH ×3 (08:25→20:14)
[2018-03-19] MEDS: NYSTATIN 500,000 UNIT/5 ML UDCUP SWISH/SWAL SCH ×3 (13:53→20:13)
[2018-03-19] MEDS: ZINC OXIDE PASTE 113 GM TUBE TOP SCH ×2 (14:17→20:28)
[2018-03-19] MEDS: LIDOCAINE/PRILOCAINE CREAM 5 GM TUBE TOP SCH (14:17)
[2018-03-19] MEDS: WARFARIN 4 MG TABLET PO SCH (17:50)
[2018-03-19] MEDS ORDERED: SODIUM CHLORIDE 0.9% 500 ML IV ONE (22:32)
[2018-03-20] MEDS ORDERED: SODIUM CHLORIDE 0.9% 250 ML IV ONE (00:07)
[2018-03-20] MEDS: HYDROCORTISONE 100 MG VIAL IV SCH ×2 (02:44→15:58)
[2018-03-20] MEDS: INSULIN REGULAR 100 UNIT/ML SUBCUT SCH ×4 (07:24→21:13)
[2018-03-20] MEDS: POLYETHYLENE GLYCOL POWDER 17 GM PACK PO SCH (08:08)
[2018-03-20] MEDS: INSULIN GLARGINE 100 UNIT/ML SUBCUT SCH (08:08)
[2018-03-20] MEDS: ENOXAPARIN 120 MG/0.8 ML SYRINGE SUBCUT SCH (08:09)
[2018-03-20] MEDS: BISACODYL 5 MG TABLET PO SCH (08:10)
[2018-03-20] MEDS: ASPIRIN EC 81 MG TABLET PO SCH (08:10)
[2018-03-20] MEDS: BISOPROLOL 5 MG TABLET PO SCH ×2 (08:10→20:16)
[2018-03-20] MEDS: NYSTATIN 500,000 UNIT/5 ML UDCUP SWISH/SWAL SCH ×4 (08:10→20:17)
[2018-03-20] MEDS: PANTOPRAZOLE 40 MG TABLET PO SCH ×2 (08:10→20:17)
[2018-03-20] MEDS: CALCIUM ACETATE 667 MG CAPSULE PO SCH ×3 (08:10→17:01)
[2018-03-20] MEDS: MIDODRINE 5 MG TABLET PO SCH ×3 (08:10→20:16)
[2018-03-20] MEDS: FLUDROCORTISONE 0.1 MG TABLET PO SCH ×2 (08:10→20:16)
[2018-03-20] MEDS: DOCUSATE SODIUM 100 MG CAPSULE PO PRN (08:11)
[2018-03-20] MEDS: AMOXICILLIN/CLAV 500 MG TABLET PO SCH ×3 (08:11→20:15)
[2018-03-20] MEDS: DILTIAZEM 30 MG TABLET PO SCH ×3 (08:11→20:19)
[2018-03-20] MEDS: DIGOXIN 0.125 MG TABLET PO SCH (08:31)
[2018-03-20 10:39] LABS: INR 1.7; PT Patient Result 17.4 SECS
[2018-03-20] MEDS: ZINC OXIDE PASTE 113 GM TUBE TOP SCH ×2 (13:16→20:19)
[2018-03-20] MEDS: WARFARIN 4 MG TABLET PO SCH (17:01)
[2018-03-21] MEDS: ACETAMINOPHEN 325 MG TABLET PO PRN ×2 (01:48→08:17)
[2018-03-21 04:01] LABS: INR 2.2
[2018-03-21] MEDS: HYDROCORTISONE 100 MG VIAL IV SCH ×2 (04:04→15:30)
[2018-03-21 04:32] LABS: PT Patient Result 22.4 SECS
[2018-03-21] MEDS: ENOXAPARIN 120 MG/0.8 ML SYRINGE SUBCUT SCH (07:52)
[2018-03-21] MEDS: CALCIUM ACETATE 667 MG CAPSULE PO SCH ×3 (07:58→17:35)
[2018-03-21] MEDS: INSULIN REGULAR 100 UNIT/ML SUBCUT SCH ×4 (08:08→22:05)
[2018-03-21 09:06] LABS: Hematocrit 27.8 VOL% (35.7-47.0); Hemoglobin 8.8 GM/DL (12.0-16.0); Immature Granulocytes % 1.3 %; Immature Granulocytes Absolute 0.27 #; Lymphocytes # 0.6 10*3/uL (1.4-4.0); Mean Corpuscular HGB Conc 31.7 GM/DL (32-36); Mean Corpuscular Hemoglobin 35 PG (27-34); Mean Corpuscular Volume 111.6 FL (87-102); Mean Platelet Volume 11.4 FL (9.6-12.0); Monocytes # 1.1 10*3/uL (0.11-0.8); NRBC # 0.02 10*3/uL; Neutrophils # 19.1 10*3/uL (1.4-7.4); Neutrophils % 90.7 % (38.7-73.9); Platelet Count 210 T/CUMM (130-400); Red Blood Count 2.49 MC/CUMM (3.8-5.5); Red Cell Distribution Width 18.6 % (9.3-17.3); White Blood Count 21.1 T/CUMM (4-12)
[2018-03-21 09:26] LABS: Hypochromasia Slight; Lymphocytes 1 % (20-55); Macrocytosis 1+; Polychromasia Slight; Segmented Neutrophils 93 % (50-85); Total Cells Counted 100
[2018-03-21] MEDS: NYSTATIN 500,000 UNIT/5 ML UDCUP SWISH/SWAL SCH ×4 (09:26→20:59)
[2018-03-21] MEDS: INSULIN GLARGINE 100 UNIT/ML SUBCUT SCH (09:26)
[2018-03-21] MEDS: POLYETHYLENE GLYCOL POWDER 17 GM PACK PO SCH (09:26)
[2018-03-21 09:27] LABS: Ovalocytes Slight; Platelet Estimate Normal; Target Cells Slight
[2018-03-21] MEDS: BISACODYL 5 MG TABLET PO SCH (09:27)
[2018-03-21] MEDS: MIDODRINE 5 MG TABLET PO SCH ×3 (09:27→21:03)
[2018-03-21] MEDS: ASPIRIN EC 81 MG TABLET PO SCH (09:27)
[2018-03-21] MEDS: PANTOPRAZOLE 40 MG TABLET PO SCH ×2 (09:27→21:00)
[2018-03-21] MEDS: FLUDROCORTISONE 0.1 MG TABLET PO SCH ×2 (09:27→21:01)
[2018-03-21] MEDS: AMOXICILLIN/CLAV 500 MG TABLET PO SCH ×3 (09:27→21:00)
[2018-03-21] MEDS: BISOPROLOL 5 MG TABLET PO SCH ×2 (09:27→21:00)
[2018-03-21 09:29] LABS: Calcium 8.3 MG/DL (8.5-10.1); Osmolality,Calculated 280.1 MOS/KG (273-304); Potassium 3.8 MMOL/L (3.5-5.1)
[2018-03-21] MEDS: DILTIAZEM 30 MG TABLET PO SCH ×3 (09:36→20:59)
[2018-03-21] MEDS ORDERED: MELATONIN 3 MG TABLET PO PRN (10:31)
[2018-03-21] MEDS: ZINC OXIDE PASTE 113 GM TUBE TOP SCH (13:51)
[2018-03-21] MEDS: WARFARIN 4 MG TABLET PO SCH (17:35)
[2018-03-21] MEDS: GABAPENTIN 100 MG CAPSULE PO SCH (21:00)
[2018-03-22] MEDS: HYDROCORTISONE 100 MG VIAL IV SCH ×2 (04:53→17:40)
[2018-03-22] MEDS: ZINC OXIDE PASTE 113 GM TUBE TOP SCH ×3 (05:23→21:42)
[2018-03-22 05:25] LABS: Basophils % 0.1 % (0.0-0.8); Eosinophils % 0.1 % (0.00-10.9); Hematocrit 27.4 VOL% (35.7-47.0); Hemoglobin 8.7 GM/DL (12.0-16.0); Immature Granulocytes % 1.1 %; Immature Granulocytes Absolute 0.19 #; Lymphocytes % 5.4 % (21.3-54.2); Mean Corpuscular HGB Conc 31.8 GM/DL (32-36); Mean Corpuscular Hemoglobin 35 PG (27-34); Mean Platelet Volume 11.4 FL (9.6-12.0); Monocytes # 1.2 10*3/uL (0.11-0.8); Monocytes % 6.7 % (1.7-12.7); NRBC # 0.06 10*3/uL; Neutrophils # 15.4 10*3/uL (1.4-7.4); Neutrophils % 86.6 % (38.7-73.9); Platelet Count 246 T/CUMM (130-400); Red Blood Count 2.49 MC/CUMM (3.8-5.5); Red Cell Distribution Width 18.2 % (9.3-17.3); White Blood Count 17.8 T/CUMM (4-12)
[2018-03-22 05:41] LABS: Calcium 8.4 MG/DL (8.5-10.1); Osmolality,Calculated 276.4 MOS/KG (273-304); Potassium 4.2 MMOL/L (3.5-5.1)
[2018-03-22 05:46] LABS: PT Patient Result 40.3 SECS
[2018-03-22] MEDS: INSULIN REGULAR 100 UNIT/ML SUBCUT SCH ×4 (08:35→21:36)
[2018-03-22] MEDS: LIDOCAINE/PRILOCAINE CREAM 5 GM TUBE TOP SCH (08:36)
[2018-03-22] MEDS: INSULIN GLARGINE 100 UNIT/ML SUBCUT SCH (08:38)
[2018-03-22] MEDS: POLYETHYLENE GLYCOL POWDER 17 GM PACK PO SCH (12:55)
[2018-03-22] MEDS: BISOPROLOL 5 MG TABLET PO SCH ×2 (12:56→21:42)
[2018-03-22] MEDS: MIDODRINE 5 MG TABLET PO SCH ×3 (12:56→21:38)
[2018-03-22] MEDS: ASPIRIN EC 81 MG TABLET PO SCH (12:57)
[2018-03-22] MEDS: CALCIUM ACETATE 667 MG CAPSULE PO SCH ×3 (12:57→17:40)
[2018-03-22] MEDS: FLUDROCORTISONE 0.1 MG TABLET PO SCH ×2 (12:58→21:38)
[2018-03-22] MEDS: BISACODYL 5 MG TABLET PO SCH (12:58)
[2018-03-22] MEDS: DILTIAZEM 30 MG TABLET PO SCH ×3 (12:58→21:42)
[2018-03-22] MEDS: PANTOPRAZOLE 40 MG TABLET PO SCH ×2 (12:58→21:38)
[2018-03-22] MEDS: AMOXICILLIN/CLAV 500 MG TABLET PO SCH ×3 (12:59→21:38)
[2018-03-22] MEDS: NYSTATIN 500,000 UNIT/5 ML UDCUP SWISH/SWAL SCH ×4 (12:59→21:38)
[2018-03-22] MEDS: DIGOXIN 0.125 MG TABLET PO SCH (12:59)
[2018-03-22] MEDS: GABAPENTIN 100 MG CAPSULE PO SCH (21:37)
[2018-03-23] MEDS: HYDROCORTISONE 100 MG VIAL IV SCH ×2 (04:05→16:09)
[2018-03-23 04:58] LABS: Basophils % 0.1 % (0.0-0.8); Eosinophils % 0.1 % (0.00-10.9); Hematocrit 27.2 VOL% (35.7-47.0); Hemoglobin 8.7 GM/DL (12.0-16.0); Immature Granulocytes Absolute 0.16 #; Lymphocytes # 0.7 10*3/uL (1.4-4.0); Lymphocytes % 4.5 % (21.3-54.2); Mean Corpuscular Hemoglobin 36 PG (27-34); Mean Corpuscular Volume 111.5 FL (87-102); Mean Platelet Volume 11.6 FL (9.6-12.0); Monocytes # 1.1 10*3/uL (0.11-0.8); Monocytes % 6.8 % (1.7-12.7); NRBC # 0.11 10*3/uL; Neutrophils # 13.9 10*3/uL (1.4-7.4); Neutrophils % 87.5 % (38.7-73.9); Platelet Count 240 T/CUMM (130-400); Red Blood Count 2.44 MC/CUMM (3.8-5.5); Red Cell Distribution Width 18.9 % (9.3-17.3); White Blood Count 15.9 T/CUMM (4-12)
[2018-03-23 05:07] LABS: INR 3.4
[2018-03-23 05:12] LABS: PT Patient Result 34.8 SECS
[2018-03-23 05:23] LABS: Calcium 8.2 MG/DL (8.5-10.1); Osmolality,Calculated 281.1 MOS/KG (273-304); Potassium 4.1 MMOL/L (3.5-5.1)
[2018-03-23 05:39] LABS: Elliptocytes Few; Hypochromasia 1+; Lymphocytes 3 % (20-55); Macrocytosis Slight; Nucleated Red Blood Cells 1 (0-5); Platelet Estimate Adequate; Segmented Neutrophils 94 % (50-85); Total Cells Counted 100
[2018-03-23] MEDS: INSULIN REGULAR 100 UNIT/ML SUBCUT SCH ×4 (09:25→21:52)
[2018-03-23] MEDS: CALCIUM ACETATE 667 MG CAPSULE PO SCH ×3 (09:31→16:08)
[2018-03-23] MEDS: MIDODRINE 5 MG TABLET PO SCH ×3 (09:31→20:55)
[2018-03-23] MEDS: NYSTATIN 500,000 UNIT/5 ML UDCUP SWISH/SWAL SCH ×4 (09:31→20:55)
[2018-03-23] MEDS: BISOPROLOL 5 MG TABLET PO SCH ×2 (09:31→20:59)
[2018-03-23] MEDS: ASPIRIN EC 81 MG TABLET PO SCH (09:31)
[2018-03-23] MEDS: FLUDROCORTISONE 0.1 MG TABLET PO SCH ×2 (09:32→20:55)
[2018-03-23] MEDS: DILTIAZEM 30 MG TABLET PO SCH ×3 (09:32→20:54)
[2018-03-23] MEDS: INSULIN GLARGINE 100 UNIT/ML SUBCUT SCH (09:33)
[2018-03-23] MEDS: PANTOPRAZOLE 40 MG TABLET PO SCH ×2 (09:33→20:55)
[2018-03-23] MEDS: ZINC OXIDE PASTE 113 GM TUBE TOP SCH ×2 (09:33→20:58)
[2018-03-23] MEDS: BISACODYL 5 MG TABLET PO SCH (09:34)
[2018-03-23] MEDS: POLYETHYLENE GLYCOL POWDER 17 GM PACK PO SCH (09:34)
[2018-03-23] MEDS: GABAPENTIN 100 MG CAPSULE PO SCH (20:55)
[2018-03-23] MEDS: ACETAMINOPHEN 325 MG TABLET PO PRN (21:55)
[2018-03-24] MEDS: HYDROCORTISONE 100 MG VIAL IV SCH (04:20)
[2018-03-24 05:37] LABS: INR 3.6
[2018-03-24 05:39] LABS: Basophils % 0.1 % (0.0-0.8); Eosinophils % 0.1 % (0.00-10.9); Hematocrit 27.2 VOL% (35.7-47.0); Hemoglobin 8.5 GM/DL (12.0-16.0); Immature Granulocytes Absolute 0.16 #; Lymphocytes # 0.7 10*3/uL (1.4-4.0); Lymphocytes % 4.1 % (21.3-54.2); Mean Corpuscular HGB Conc 31.3 GM/DL (32-36); Mean Corpuscular Hemoglobin 35 PG (27-34); Mean Corpuscular Volume 112.4 FL (87-102); Mean Platelet Volume 11.3 FL (9.6-12.0); Monocytes % 6.6 % (1.7-12.7); NRBC # 0.14 10*3/uL; Neutrophils # 13.9 10*3/uL (1.4-7.4); Neutrophils % 88.1 % (38.7-73.9); Platelet Count 252 T/CUMM (130-400); Red Blood Count 2.42 MC/CUMM (3.8-5.5); Red Cell Distribution Width 18.9 % (9.3-17.3); White Blood Count 15.8 T/CUMM (4-12)
[2018-03-24 05:42] LABS: Calcium 8.3 MG/DL (8.5-10.1); Osmolality,Calculated 284.1 MOS/KG (273-304); Potassium 4.1 MMOL/L (3.5-5.1)
[2018-03-24 06:13] LABS: Acanthocytes Few; Hypochromasia 1+; Lymphocytes 6 % (20-55); Macrocytosis 1+; Polychromasia Slight; Segmented Neutrophils 93 % (50-85); Total Cells Counted 100
[2018-03-24 06:14] LABS: Ovalocytes Slight; Platelet Estimate Normal
[2018-03-24] MEDS: DIGOXIN 0.125 MG TABLET PO SCH (10:15)
[2018-03-24] MEDS: CALCIUM ACETATE 667 MG CAPSULE PO SCH ×2 (10:15→13:38)
[2018-03-24] MEDS: PANTOPRAZOLE 40 MG TABLET PO SCH (10:15)
[2018-03-24] MEDS: MIDODRINE 5 MG TABLET PO SCH (10:16)
[2018-03-24] MEDS: NYSTATIN 500,000 UNIT/5 ML UDCUP SWISH/SWAL SCH ×2 (10:16→13:38)
[2018-03-24] MEDS: FLUDROCORTISONE 0.1 MG TABLET PO SCH (10:16)
[2018-03-24] MEDS: DILTIAZEM 30 MG TABLET PO SCH (10:17)
[2018-03-24] MEDS: BISOPROLOL 5 MG TABLET PO SCH (10:17)
[2018-03-24] MEDS: BISACODYL 5 MG TABLET PO SCH (10:17)
[2018-03-24] MEDS: ASPIRIN EC 81 MG TABLET PO SCH (10:17)
[2018-03-24] MEDS: POLYETHYLENE GLYCOL POWDER 17 GM PACK PO SCH (10:18)
[2018-03-24] MEDS: INSULIN GLARGINE 100 UNIT/ML SUBCUT SCH (10:18)
[2018-03-24] MEDS: ZINC OXIDE PASTE 113 GM TUBE TOP SCH (10:18)
[2018-03-24] MEDS: INSULIN REGULAR 100 UNIT/ML SUBCUT SCH ×2 (10:18→13:14)
[2018-03-24 13:43] VITALS: BP 92/57
[2018-03-24] MEDS: LIDOCAINE/PRILOCAINE CREAM 5 GM TUBE TOP SCH (14:30)
== END 2018-03-24 15:27 | DRG 308 ==
LOC: N.ED 17:44 → SUATTDRO 20:38 → N.EDINP 20:38 → N.CC 23:10 → N.TELES 03-18 13:49
PROVIDERS: ADMIT Internal Medicine; ATTEND Hospitalist

== ENCOUNTER 2018-06-26 18:23 | Inpatient (IN) ==
[2018-06-26 19:55] LABS: Basophils % 0.4 % (0.0-0.8); Eosinophils % 0.1 % (0.00-10.9); Hematocrit 34.3 VOL% (35.7-47.0); Immature Granulocytes % 0.5 %; Immature Granulocytes Absolute 0.04 #; Lymphocytes # 0.3 10*3/uL (1.4-4.0); Lymphocytes % 4.2 % (21.3-54.2); Mean Corpuscular HGB Conc 27.7 GM/DL (32-36); Mean Corpuscular Hemoglobin 29 PG (27-34); Mean Corpuscular Volume 103.3 FL (87-102); Mean Platelet Volume 9.8 FL (9.6-12.0); Monocytes # 0.7 10*3/uL (0.11-0.8); Monocytes % 9.7 % (1.7-12.7); Neutrophils # 6.4 10*3/uL (1.4-7.4); Neutrophils % 85.1 % (38.7-73.9); Platelet Count 296 T/CUMM (130-400); Red Blood Count 3.32 MC/CUMM (3.8-5.5); Red Cell Distribution Width 19.7 % (9.3-17.3); White Blood Count 7.6 T/CUMM (4-12)
[2018-06-26 19:56] LABS: Hemoglobin 9.5 GM/DL (12.0-16.0)
[2018-06-26 20:03] LABS: Alanine Aminotransferase 12 U/L (13-56); Albumin 2.7 G/DL (3.4-5.0); Alkaline Phosphatase 224 U/L (45-117); Aspartate Amino Transferase 29 U/L (0-37); Blood Urea Nitrogen 18 MG/DL (7-18); Calcium 9.2 MG/DL (8.5-10.1); Glucose 250 MG/DL (74-106); Osmolality,Calculated 282.8 MOS/KG (273-304); Potassium 3.6 MMOL/L (3.5-5.1); Sodium 137 MMOL/L (136-145); Total Protein 8.2 G/DL (6.4-8.3)
[2018-06-26] MEDS ORDERED: CEFEPIME 2,000 MG in SODIUM CHLORIDE 0.9% 100 ML IV STA (20:32)
[2018-06-26] MEDS ORDERED: VANCOMYCIN INJ 1,000 MG in SODIUM CHLORIDE 0.9% 250 ML IV STA (20:33)
[2018-06-26 20:36] LABS: Lymphocytes 5 % (20-55); Macrocytosis 2+; Platelet Estimate Normal; Segmented Neutrophils 84 % (50-85); Total Cells Counted 100
[2018-06-26 20:37] LABS: Hypochromasia Slight
[2018-06-26] MEDS ORDERED: CEFEPIME 2,000 MG VIAL ONE (20:53)
[2018-06-26] MEDS ORDERED: SODIUM CHLORIDE 0.9% 100 ML IV ONE (20:53)
[2018-06-26 21:38] LABS: ABG Base Excess -0.5 MMOL/L (-2.5-2.5); ABG HCO3 23.9 MMOL/L (20-26); ABG Oxygen Saturation 91.5 % (95-100); ABG PO2 74.3 MM HG (80-95); ABG TCO2 28.3 MMOL/L (23-27); Allen Test Positive
[2018-06-26 21:40] LABS: ABG PH 7.176 (7.35-7.45)
[2018-06-26 21:41] LABS: ABG PCO2 81.4 MM HG (35-48)
[2018-06-26] MEDS ORDERED: ONDANSETRON 4 MG/2 ML VIAL IV PRN (21:43)
[2018-06-26] MEDS ORDERED: GLUCAGON 1 MG VIAL IM PRN (21:43)
[2018-06-26] MEDS ORDERED: DEXTROSE 50% 25 GM/50 ML SYRINGE IV PRN (21:43)
[2018-06-26] MEDS ORDERED: ACETAMINOPHEN 325 MG TABLET PO PRN (21:43)
[2018-06-26] MEDS ORDERED: SODIUM CHLORIDE 0.9% 500 ML IV STA (23:10)
[2018-06-27] MEDS ORDERED: PHENYLEPHRINE INJ 80 MG in SODIUM CHLORIDE 0.9% 242 ML IV PRN (01:14)
[2018-06-27] MEDS: PIPERACILLIN/TAZOBACTAM 3,375 MG in SODIUM CHLORIDE 0.9% 100 ML IV SCH ×3 (02:02→23:20)
[2018-06-27] MEDS: ALBUTEROL/IPRATROPIUM 3 ML NEB RESP TX SCH ×5 (02:18→19:37)
[2018-06-27] MEDS ORDERED: PHENYLEPHRINE DRIP 40 MG/250 ML PREMIX IV PRN (02:36)
[2018-06-27 04:24] LABS: ABG Base Excess -0.1 MMOL/L (-2.5-2.5); ABG HCO3 24.4 MMOL/L (20-26); ABG Oxygen Saturation 98.4 % (95-100); ABG PCO2 62.3 MM HG (35-48); ABG PH 7.262 (7.35-7.45); ABG TCO2 26.1 MMOL/L (23-27); Allen Test Positive; Pt O2 Delivery Device BIPAP
[2018-06-27 05:34] LABS: INR 1.3; PT Patient Result 13.8 SECS; Partial Thromboplastin Time 32.7 SECS (0-40)
[2018-06-27 05:39] LABS: Calcium 9.2 MG/DL (8.5-10.1); Osmolality,Calculated 277.1 MOS/KG (273-304); Potassium 3.3 MMOL/L (3.5-5.1)
[2018-06-27 06:10] LABS: Basophils % 0.3 % (0.0-0.8); Eosinophils % 0.4 % (0.00-10.9); Hematocrit 32.1 VOL% (35.7-47.0); Hemoglobin 9.2 GM/DL (12.0-16.0); Immature Granulocytes % 0.6 %; Immature Granulocytes Absolute 0.05 #; Lymphocytes # 0.4 10*3/uL (1.4-4.0); Lymphocytes % 4.8 % (21.3-54.2); Mean Corpuscular HGB Conc 28.7 GM/DL (32-36); Mean Corpuscular Hemoglobin 29 PG (27-34); Mean Corpuscular Volume 101.3 FL (87-102); Mean Platelet Volume 10.2 FL (9.6-12.0); Monocytes # 0.7 10*3/uL (0.11-0.8); Monocytes % 8.8 % (1.7-12.7); NRBC # 0.02 10*3/uL; Neutrophils # 6.8 10*3/uL (1.4-7.4); Neutrophils % 85.1 % (38.7-73.9); Platelet Count 239 T/CUMM (130-400); Red Blood Count 3.17 MC/CUMM (3.8-5.5); Red Cell Distribution Width 19.8 % (9.3-17.3)
[2018-06-27 06:50] LABS: Band Neutrophils 2 % (0-10); Lymphocytes 3 % (20-55); Segmented Neutrophils 84 % (50-85); Total Cells Counted 100
[2018-06-27 06:51] LABS: Hypochromasia 1+; Macrocytosis 1+; Polychromasia Slight
[2018-06-27 06:52] LABS: Target Cells Slight
[2018-06-27] MEDS ORDERED: VANCOMYCIN INJ 750 MG in SODIUM CHLORIDE 0.9% 250 ML IV PRN (07:49)
[2018-06-27] MEDS ORDERED: VANCOMYCIN INJ 1,000 MG in SODIUM CHLORIDE 0.9% 250 ML IV ONE (08:00)
[2018-06-27 08:33] LABS: Troponin I 0.057 NG/ML (0.00-0.045)
[2018-06-27] MEDS: PANTOPRAZOLE 40 MG TABLET PO SCH (09:06)
[2018-06-27] MEDS: methylPREDNISolone SOD SUC 40 MG/1 ML VIAL IV SCH ×2 (09:06→20:27)
[2018-06-27] MEDS: INSULIN LISPRO 100 UNIT/ML SUBCUT SCH ×4 (09:07→21:45)
[2018-06-27] MEDS ORDERED: KETOROLAC 30 MG/1 ML VIAL IV ONE (13:21)
[2018-06-27] MEDS ORDERED: CYCLOBENZAPRINE 10 MG TABLET PO PRN (13:21)
[2018-06-27] MEDS ORDERED: ACETAMINOPHEN 325 MG TABLET PO SCH (13:30)
[2018-06-27 13:41] LABS: Troponin I 0.056 NG/ML (0.00-0.045)
[2018-06-27] MEDS ORDERED: GABAPENTIN 100 MG CAPSULE PO SCH (15:00)
[2018-06-27 21:23] LABS: Troponin I 0.047 NG/ML (0.00-0.045)
[2018-06-27] MEDS: DESITIN 4OZ/NYSTATIN 15 GRAM MIXTURE PASTE TOP SCH (21:47)
[2018-06-28] MEDS: ALBUTEROL/IPRATROPIUM 3 ML NEB RESP TX SCH ×6 (00:27→20:04)
[2018-06-28 04:55] LABS: Basophils % 0.2 % (0.0-0.8); Hemoglobin 11.3 GM/DL (12.0-16.0); Immature Granulocytes % 0.7 %; Immature Granulocytes Absolute 0.07 #; Lymphocytes # 0.4 10*3/uL (1.4-4.0); Mean Corpuscular HGB Conc 28.4 GM/DL (32-36); Mean Corpuscular Hemoglobin 29 PG (27-34); Mean Corpuscular Volume 101.5 FL (87-102); Mean Platelet Volume 10.5 FL (9.6-12.0); Monocytes # 0.3 10*3/uL (0.11-0.8); Monocytes % 2.5 % (1.7-12.7); Neutrophils # 9.5 10*3/uL (1.4-7.4); Neutrophils % 92.6 % (38.7-73.9); Platelet Count 235 T/CUMM (130-400); Red Blood Count 3.92 MC/CUMM (3.8-5.5); Red Cell Distribution Width 19.7 % (9.3-17.3); White Blood Count 10.2 T/CUMM (4-12)
[2018-06-28 05:07] LABS: Albumin 2.5 G/DL (3.4-5.0); Bilirubin,Total 0.8 MG/DL (0.2-1.0); Calcium 9.4 MG/DL (8.5-10.1); Osmolality,Calculated 285.7 MOS/KG (273-304); Potassium 3.5 MMOL/L (3.5-5.1); Total Protein 8.5 G/DL (6.4-8.3)
[2018-06-28 05:17] LABS: Hematocrit 37.9 VOL% (35.7-47.0)
[2018-06-28 05:33] LABS: Band Neutrophils 2 % (0-10); Lymphocytes 7 % (20-55); Platelet Estimate Adequate; Segmented Neutrophils 87 % (50-85); Total Cells Counted 100
[2018-06-28 05:34] LABS: Hypochromasia 1+; Macrocytosis Slight; Ovalocytes Slight
[2018-06-28] MEDS: PANTOPRAZOLE 40 MG TABLET PO SCH ×2 (08:08→22:50)
[2018-06-28] MEDS: methylPREDNISolone SOD SUC 40 MG/1 ML VIAL IV SCH ×2 (08:08→18:30)
[2018-06-28] MEDS: DESITIN 4OZ/NYSTATIN 15 GRAM MIXTURE PASTE TOP SCH ×2 (08:08→22:55)
[2018-06-28] MEDS: INSULIN LISPRO 100 UNIT/ML SUBCUT SCH ×4 (08:34→22:50)
[2018-06-28] MEDS: PIPERACILLIN/TAZOBACTAM 3,375 MG in SODIUM CHLORIDE 0.9% 100 ML IV SCH ×2 (12:07→23:30)
[2018-06-28] MEDS: MIDODRINE 5 MG TABLET PO SCH ×2 (14:01→22:50)
[2018-06-28] MEDS ORDERED: BISACODYL 10 MG SUPP RECTAL PRN (14:27)
[2018-06-28] MEDS ORDERED: MELATONIN 3 MG TABLET PO PRN (14:27)
[2018-06-28] MEDS ORDERED: HEPARIN 10,000 UNIT/10 ML VIAL IV PRN (16:11)
[2018-06-28] MEDS: CALCIUM ACETATE 667 MG CAPSULE PO SCH (17:35)
[2018-06-28] MEDS: WARFARIN 1 MG TABLET PO SCH (18:12)
[2018-06-28] MEDS ORDERED: SALMETEROL INH SCH (19:00)
[2018-06-28] MEDS ORDERED: FLUTICASONE INH SCH (19:00)
[2018-06-28] MEDS ORDERED: VANCOMYCIN INJ 750 MG in SODIUM CHLORIDE 0.9% 250 ML IV ONE (21:00)
[2018-06-28] MEDS: GABAPENTIN 100 MG CAPSULE PO SCH (22:50)
[2018-06-28] MEDS: FLUDROCORTISONE 0.1 MG TABLET PO SCH (22:50)
[2018-06-29] MEDS: ALBUTEROL/IPRATROPIUM 3 ML NEB RESP TX SCH ×7 (00:02→23:37)
[2018-06-29 07:24] LABS: INR 1.6; PT Patient Result 17.7 SECS
[2018-06-29] MEDS: methylPREDNISolone SOD SUC 40 MG/1 ML VIAL IV SCH ×2 (08:07→20:16)
[2018-06-29] MEDS: INSULIN LISPRO 100 UNIT/ML SUBCUT SCH ×4 (08:07→20:16)
[2018-06-29] MEDS ORDERED: CYANOCOBALAMIN 5000 MCG SL SCH (09:00)
[2018-06-29] MEDS: MEGESTROL 40 MG TABLET PO SCH (09:22)
[2018-06-29] MEDS: MIDODRINE 5 MG TABLET PO SCH ×3 (09:22→20:18)
[2018-06-29] MEDS: CALCIUM ACETATE 667 MG CAPSULE PO SCH ×3 (09:22→17:29)
[2018-06-29] MEDS: FLUDROCORTISONE 0.1 MG TABLET PO SCH ×2 (09:22→20:17)
[2018-06-29] MEDS: PANTOPRAZOLE 40 MG TABLET PO SCH ×3 (09:22→20:18)
[2018-06-29] MEDS: INSULIN GLARGINE 100 UNIT/ML SUBCUT SCH (09:23)
[2018-06-29] MEDS: POLYETHYLENE GLYCOL POWDER 17 GM PACK PO SCH (09:23)
[2018-06-29 10:11] LABS: Basophils % 0.2 % (0.0-0.8); Eosinophils % 0.1 % (0.00-10.9); Hematocrit 34.7 VOL% (35.7-47.0); Hemoglobin 10.2 GM/DL (12.0-16.0); Immature Granulocytes Absolute 0.12 #; Lymphocytes # 0.3 10*3/uL (1.4-4.0); Lymphocytes % 2.1 % (21.3-54.2); Mean Corpuscular HGB Conc 29.4 GM/DL (32-36); Mean Corpuscular Hemoglobin 29 PG (27-34); Mean Corpuscular Volume 98.6 FL (87-102); Mean Platelet Volume 9.9 FL (9.6-12.0); Monocytes # 0.3 10*3/uL (0.11-0.8); Monocytes % 2.8 % (1.7-12.7); Neutrophils # 11.2 10*3/uL (1.4-7.4); Neutrophils % 93.8 % (38.7-73.9); Platelet Count 245 T/CUMM (130-400); Red Blood Count 3.52 MC/CUMM (3.8-5.5); Red Cell Distribution Width 19.9 % (9.3-17.3)
[2018-06-29 10:15] LABS: Band Neutrophils 1 % (0-10); Hypochromasia 1+; Lymphocytes 5 % (20-55); Macrocytosis Slight; Ovalocytes Slight; Platelet Estimate Adequate; Segmented Neutrophils 92 % (50-85); Total Cells Counted 100
[2018-06-29] MEDS: DESITIN 4OZ/NYSTATIN 15 GRAM MIXTURE PASTE TOP SCH ×2 (10:20→20:18)
[2018-06-29 10:38] LABS: Calcium 8.9 MG/DL (8.5-10.1); Osmolality,Calculated 276.2 MOS/KG (273-304); Potassium 4.6 MMOL/L (3.5-5.1)
[2018-06-29 10:54] LABS: ABG HCO3 22.7 MMOL/L (20-26); ABG Oxygen Saturation 93.8 % (95-100); ABG PCO2 49.7 MM HG (35-48); ABG PH 7.305 (7.35-7.45); ABG PO2 75.1 MM HG (80-95); ABG TCO2 22.8 MMOL/L (23-27)
[2018-06-29] MEDS: PIPERACILLIN/TAZOBACTAM 3,375 MG in SODIUM CHLORIDE 0.9% 100 ML IV SCH (12:04)
[2018-06-29] MEDS: WARFARIN 1 MG TABLET PO SCH (17:29)
[2018-06-29] MEDS: GABAPENTIN 100 MG CAPSULE PO SCH (20:18)
[2018-06-30] MEDS: PIPERACILLIN/TAZOBACTAM 3,375 MG in SODIUM CHLORIDE 0.9% 100 ML IV SCH ×3 (01:15→23:47)
[2018-06-30] MEDS: ALBUTEROL/IPRATROPIUM 3 ML NEB RESP TX SCH ×6 (02:36→23:41)
[2018-06-30 05:12] LABS: ABG Base Excess -1.8 MMOL/L (-2.5-2.5); ABG HCO3 22.9 MMOL/L (20-26); ABG Oxygen Saturation 96.2 % (95-100); ABG PH 7.284 (7.35-7.45); ABG PO2 90.5 MM HG (80-95); ABG TCO2 23.5 MMOL/L (23-27); Allen Test Positive; Pt O2 Delivery Device BIPAP
[2018-06-30] MEDS: INSULIN LISPRO 100 UNIT/ML SUBCUT SCH ×4 (07:39→21:16)
[2018-06-30] MEDS: methylPREDNISolone SOD SUC 40 MG/1 ML VIAL IV SCH ×2 (07:39→20:24)
[2018-06-30] MEDS: FLUDROCORTISONE 0.1 MG TABLET PO SCH ×2 (09:03→21:16)
[2018-06-30] MEDS: MEGESTROL 40 MG TABLET PO SCH (09:03)
[2018-06-30] MEDS: CALCIUM ACETATE 667 MG CAPSULE PO SCH ×3 (09:03→18:19)
[2018-06-30] MEDS: DIGOXIN 0.125 MG TABLET PO SCH (09:03)
[2018-06-30] MEDS: MIDODRINE 5 MG TABLET PO SCH ×3 (09:03→21:15)
[2018-06-30] MEDS: DESITIN 4OZ/NYSTATIN 15 GRAM MIXTURE PASTE TOP SCH ×2 (09:04→21:16)
[2018-06-30] MEDS: PANTOPRAZOLE 40 MG TABLET PO SCH ×2 (09:04→21:15)
[2018-06-30] MEDS: POLYETHYLENE GLYCOL POWDER 17 GM PACK PO SCH (09:04)
[2018-06-30] MEDS: INSULIN GLARGINE 100 UNIT/ML SUBCUT SCH (09:04)
[2018-06-30 09:47] LABS: Basophils % 0.2 % (0.0-0.8); Hematocrit 34.3 VOL% (35.7-47.0); Hemoglobin 10.1 GM/DL (12.0-16.0); Immature Granulocytes % 1.8 %; Lymphocytes # 0.6 10*3/uL (1.4-4.0); Lymphocytes % 3.6 % (21.3-54.2); Mean Corpuscular HGB Conc 29.4 GM/DL (32-36); Mean Corpuscular Hemoglobin 29 PG (27-34); Mean Corpuscular Volume 98.3 FL (87-102); Mean Platelet Volume 9.5 FL (9.6-12.0); Monocytes # 0.5 10*3/uL (0.11-0.8); Monocytes % 3.1 % (1.7-12.7); NRBC # 0.18 10*3/uL; Neutrophils # 14.9 10*3/uL (1.4-7.4); Neutrophils % 91.3 % (38.7-73.9); Platelet Count 226 T/CUMM (130-400); Red Blood Count 3.49 MC/CUMM (3.8-5.5); Red Cell Distribution Width 19.9 % (9.3-17.3); White Blood Count 16.3 T/CUMM (4-12)
[2018-06-30 09:58] LABS: INR 1.6; PT Patient Result 16.8 SECS
[2018-06-30 10:09] LABS: Calcium 9.4 MG/DL (8.5-10.1); Potassium 3.2 MMOL/L (3.5-5.1)
[2018-06-30 10:14] LABS: Hypochromasia 1+; Lymphocytes 2 % (20-55); Macrocytosis 1+; Nucleated Red Blood Cells 1 (0-5); Polychromasia Slight; Segmented Neutrophils 95 % (50-85); Total Cells Counted 100
[2018-06-30 10:15] LABS: Platelet Estimate Normal
[2018-06-30] MEDS ORDERED: MORPHINE 4 MG/1 ML VIAL IV PRN (14:38)
[2018-06-30] MEDS ORDERED: LORazepam 2 MG/1 ML VIAL IV PRN (14:40)
[2018-06-30] MEDS ORDERED: VANCOMYCIN INJ 750 MG in SODIUM CHLORIDE 0.9% 250 ML IV ONE (15:00)
[2018-06-30] MEDS: WARFARIN 2 MG TABLET PO SCH (18:19)
[2018-06-30] MEDS: GABAPENTIN 100 MG CAPSULE PO SCH (21:16)
[2018-07-01] MEDS: ALBUTEROL/IPRATROPIUM 3 ML NEB RESP TX SCH ×6 (03:16→23:35)
[2018-07-01 05:25] LABS: ABG Base Excess 0.5 MMOL/L (-2.5-2.5); ABG HCO3 27.6 MMOL/L (20-26); ABG Oxygen Saturation 90.9 % (95-100); ABG PCO2 56.8 MM HG (35-48); ABG PH 7.305 (7.35-7.45); ABG TCO2 29.4 MMOL/L (23-27); Allen Test Positive
[2018-07-01 06:05] LABS: INR 1.5; PT Patient Result 15.8 SECS
[2018-07-01 06:13] LABS: Basophils % 0.2 % (0.0-0.8); Hemoglobin 9.8 GM/DL (12.0-16.0); Immature Granulocytes % 4.1 %; Immature Granulocytes Absolute 0.66 #; Lymphocytes # 0.4 10*3/uL (1.4-4.0); Lymphocytes % 2.6 % (21.3-54.2); Mean Corpuscular HGB Conc 29.7 GM/DL (32-36); Mean Corpuscular Hemoglobin 29 PG (27-34); Mean Corpuscular Volume 96.8 FL (87-102); Mean Platelet Volume 10.6 FL (9.6-12.0); Monocytes # 0.4 10*3/uL (0.11-0.8); Monocytes % 2.4 % (1.7-12.7); NRBC # 0.51 10*3/uL; Neutrophils # 14.6 10*3/uL (1.4-7.4); Neutrophils % 90.7 % (38.7-73.9); Platelet Count 233 T/CUMM (130-400); Red Blood Count 3.41 MC/CUMM (3.8-5.5); Red Cell Distribution Width 20.2 % (9.3-17.3); White Blood Count 16.1 T/CUMM (4-12)
[2018-07-01 06:18] LABS: Calcium 9.4 MG/DL (8.5-10.1); Osmolality,Calculated 284.8 MOS/KG (273-304); Potassium 3.1 MMOL/L (3.5-5.1)
[2018-07-01 06:31] LABS: Lymphocytes 5 % (20-55); Myelocytes 1 %; Nucleated Red Blood Cells 1 (0-5); Segmented Neutrophils 92 % (50-85); Total Cells Counted 100
[2018-07-01 06:32] LABS: Hypochromasia 2+
[2018-07-01 06:33] LABS: Macrocytosis 1+; Polychromasia Slight; Target Cells Slight
[2018-07-01 06:34] LABS: Platelet Estimate Normal
[2018-07-01] MEDS: CALCIUM ACETATE 667 MG CAPSULE PO SCH ×3 (09:11→16:49)
[2018-07-01] MEDS: MIDODRINE 5 MG TABLET PO SCH ×3 (09:11→21:13)
[2018-07-01] MEDS: methylPREDNISolone SOD SUC 40 MG/1 ML VIAL IV SCH ×2 (09:11→21:14)
[2018-07-01] MEDS: PANTOPRAZOLE 40 MG TABLET PO SCH ×2 (09:11→21:13)
[2018-07-01] MEDS: FLUDROCORTISONE 0.1 MG TABLET PO SCH ×2 (09:11→21:13)
[2018-07-01] MEDS: INSULIN LISPRO 100 UNIT/ML SUBCUT SCH ×4 (09:12→21:13)
[2018-07-01] MEDS: MEGESTROL 40 MG TABLET PO SCH (09:12)
[2018-07-01] MEDS: INSULIN GLARGINE 100 UNIT/ML SUBCUT SCH (09:12)
[2018-07-01] MEDS: POLYETHYLENE GLYCOL POWDER 17 GM PACK PO SCH (09:13)
[2018-07-01] MEDS: DESITIN 4OZ/NYSTATIN 15 GRAM MIXTURE PASTE TOP SCH ×2 (09:13→21:23)
[2018-07-01] MEDS ORDERED: POTASSIUM CHLORIDE RIDER 10 MEQ in PREMIX 1 EACH IV PRN (09:27)
[2018-07-01] MEDS: POTASSIUM CHLORIDE 20 MEQ TABLET PO PRN ×3 (12:38→16:51)
[2018-07-01] MEDS: LEVOFLOXACIN 750 MG TABLET PO SCH (12:39)
[2018-07-01] MEDS: WARFARIN 2 MG TABLET PO SCH (18:07)
[2018-07-01] MEDS: GABAPENTIN 100 MG CAPSULE PO SCH (21:13)
[2018-07-02] MEDS: ALBUTEROL/IPRATROPIUM 3 ML NEB RESP TX SCH ×6 (03:35→23:39)
[2018-07-02 05:56] LABS: Basophils # 0.1 10*3/uL (0.0-0.2); Basophils % 0.3 % (0.0-0.8); Hematocrit 33.1 VOL% (35.7-47.0); Hemoglobin 9.7 GM/DL (12.0-16.0); Immature Granulocytes % 6.3 %; Immature Granulocytes Absolute 1.04 #; Lymphocytes # 0.4 10*3/uL (1.4-4.0); Lymphocytes % 2.5 % (21.3-54.2); Mean Corpuscular HGB Conc 29.3 GM/DL (32-36); Mean Corpuscular Hemoglobin 28 PG (27-34); Mean Corpuscular Volume 96.8 FL (87-102); Mean Platelet Volume 10.5 FL (9.6-12.0); Monocytes # 0.5 10*3/uL (0.11-0.8); Monocytes % 2.7 % (1.7-12.7); NRBC # 1.41 10*3/uL; Neutrophils # 14.5 10*3/uL (1.4-7.4); Neutrophils % 88.2 % (38.7-73.9); Platelet Count 227 T/CUMM (130-400); Red Blood Count 3.42 MC/CUMM (3.8-5.5); Red Cell Distribution Width 20.2 % (9.3-17.3); White Blood Count 16.5 T/CUMM (4-12)
[2018-07-02 06:00] LABS: INR 1.4; PT Patient Result 15.6 SECS
[2018-07-02 06:11] LABS: Calcium 9.9 MG/DL (8.5-10.1); Osmolality,Calculated 288.8 MOS/KG (273-304); Potassium 4.1 MMOL/L (3.5-5.1)
[2018-07-02 06:30] LABS: Band Neutrophils 1 % (0-10); Hypochromasia 2+; Lymphocytes 5 % (20-55); Macrocytosis 1+; Metamyelocytes 1 %; Myelocytes 3 %; Nucleated Red Blood Cells 9 (0-5); Platelet Estimate Normal; Segmented Neutrophils 86 % (50-85); Total Cells Counted 100
[2018-07-02 06:31] LABS: Polychromasia Slight; Target Cells Slight
[2018-07-02] MEDS: INSULIN GLARGINE 100 UNIT/ML SUBCUT SCH ×2 (07:31→08:42)
[2018-07-02] MEDS: INSULIN LISPRO 100 UNIT/ML SUBCUT SCH ×4 (07:31→22:12)
[2018-07-02] MEDS: FLUDROCORTISONE 0.1 MG TABLET PO SCH ×3 (07:32→22:13)
[2018-07-02] MEDS: POLYETHYLENE GLYCOL POWDER 17 GM PACK PO SCH ×2 (07:32→08:42)
[2018-07-02] MEDS: methylPREDNISolone SOD SUC 40 MG/1 ML VIAL IV SCH ×2 (07:32→08:42)
[2018-07-02] MEDS: MIDODRINE 5 MG TABLET PO SCH ×4 (07:32→22:13)
[2018-07-02] MEDS: PANTOPRAZOLE 40 MG TABLET PO SCH ×3 (07:33→22:13)
[2018-07-02] MEDS: DIGOXIN 0.125 MG TABLET PO SCH ×2 (07:33→08:41)
[2018-07-02] MEDS: CALCIUM ACETATE 667 MG CAPSULE PO SCH ×3 (07:33→17:23)
[2018-07-02] MEDS: DESITIN 4OZ/NYSTATIN 15 GRAM MIXTURE PASTE TOP SCH ×3 (07:34→22:14)
[2018-07-02] MEDS: MEGESTROL 40 MG TABLET PO SCH ×2 (07:35→08:42)
[2018-07-02] MEDS: WARFARIN 2 MG TABLET PO SCH (17:24)
[2018-07-02] MEDS: GABAPENTIN 100 MG CAPSULE PO SCH (22:13)
[2018-07-03] MEDS: ALBUTEROL/IPRATROPIUM 3 ML NEB RESP TX SCH ×6 (04:24→23:43)
[2018-07-03 05:55] LABS: Basophils % 0.2 % (0.0-0.8); Hematocrit 32.9 VOL% (35.7-47.0); Hemoglobin 9.8 GM/DL (12.0-16.0); Immature Granulocytes % 5.2 %; Immature Granulocytes Absolute 0.89 #; Lymphocytes # 0.4 10*3/uL (1.4-4.0); Lymphocytes % 2.1 % (21.3-54.2); Mean Corpuscular HGB Conc 29.8 GM/DL (32-36); Mean Corpuscular Hemoglobin 29 PG (27-34); Mean Corpuscular Volume 97.1 FL (87-102); Mean Platelet Volume 10.1 FL (9.6-12.0); Monocytes # 0.7 10*3/uL (0.11-0.8); Neutrophils # 15.1 10*3/uL (1.4-7.4); Neutrophils % 88.5 % (38.7-73.9); Platelet Count 205 T/CUMM (130-400); Red Blood Count 3.39 MC/CUMM (3.8-5.5); Red Cell Distribution Width 21.2 % (9.3-17.3); White Blood Count 17.1 T/CUMM (4-12)
[2018-07-03 06:14] LABS: Calcium 9.3 MG/DL (8.5-10.1); Lymphocytes 1 % (20-55); Metamyelocytes 1 %; Nucleated Red Blood Cells 8 (0-5); Osmolality,Calculated 284.8 MOS/KG (273-304); Platelet Estimate Normal; Potassium 3.2 MMOL/L (3.5-5.1); Segmented Neutrophils 94 % (50-85); Total Cells Counted 100
[2018-07-03] MEDS: FLUDROCORTISONE 0.1 MG TABLET PO SCH ×2 (08:49→21:15)
[2018-07-03] MEDS: CALCIUM ACETATE 667 MG CAPSULE PO SCH ×3 (08:49→16:45)
[2018-07-03] MEDS: PANTOPRAZOLE 40 MG TABLET PO SCH ×2 (08:49→21:14)
[2018-07-03] MEDS: predniSONE 20 MG TABLET PO SCH (08:49)
[2018-07-03] MEDS: MIDODRINE 5 MG TABLET PO SCH ×3 (08:49→21:16)
[2018-07-03] MEDS: INSULIN GLARGINE 100 UNIT/ML SUBCUT SCH (08:50)
[2018-07-03] MEDS: MEGESTROL 40 MG TABLET PO SCH (08:50)
[2018-07-03] MEDS: POLYETHYLENE GLYCOL POWDER 17 GM PACK PO SCH (08:50)
[2018-07-03] MEDS: INSULIN LISPRO 100 UNIT/ML SUBCUT SCH ×4 (08:50→21:13)
[2018-07-03] MEDS: POTASSIUM CHLORIDE 20 MEQ TABLET PO PRN (08:50)
[2018-07-03] MEDS: DESITIN 4OZ/NYSTATIN 15 GRAM MIXTURE PASTE TOP SCH ×2 (08:51→21:14)
[2018-07-03] MEDS ORDERED: SODIUM CHLORIDE 0.9% 250 ML IV ONE (11:50)
[2018-07-03 12:22] LABS: INR 1.4; PT Patient Result 15.2 SECS
[2018-07-03] MEDS: LEVOFLOXACIN 750 MG TABLET PO SCH (12:49)
[2018-07-03] MEDS: WARFARIN 2 MG TABLET PO SCH (21:15)
[2018-07-03] MEDS: GABAPENTIN 100 MG CAPSULE PO SCH (21:16)
[2018-07-04] MEDS: ALBUTEROL/IPRATROPIUM 3 ML NEB RESP TX SCH ×6 (03:54→23:22)
[2018-07-04 05:28] LABS: Basophils % 0.1 % (0.0-0.8); Hematocrit 33.9 VOL% (35.7-47.0); Hemoglobin 10.2 GM/DL (12.0-16.0); Immature Granulocytes % 2.6 %; Immature Granulocytes Absolute 0.44 #; Lymphocytes # 0.3 10*3/uL (1.4-4.0); Mean Corpuscular HGB Conc 30.1 GM/DL (32-36); Mean Corpuscular Hemoglobin 29 PG (27-34); Mean Corpuscular Volume 96.9 FL (87-102); Mean Platelet Volume 10.1 FL (9.6-12.0); Monocytes # 0.7 10*3/uL (0.11-0.8); NRBC # 0.42 10*3/uL; Neutrophils # 15.3 10*3/uL (1.4-7.4); Neutrophils % 91.3 % (38.7-73.9); Platelet Count 190 T/CUMM (130-400); Red Cell Distribution Width 21.6 % (9.3-17.3); White Blood Count 16.8 T/CUMM (4-12)
[2018-07-04 05:31] LABS: INR 1.4; PT Patient Result 15.2 SECS
[2018-07-04 05:53] LABS: Hypochromasia 1+; Lymphocytes 2 % (20-55); Macrocytosis Slight; Nucleated Red Blood Cells 6 (0-5); Ovalocytes Slight; Platelet Estimate Adequate; Segmented Neutrophils 94 % (50-85); Total Cells Counted 100
[2018-07-04 05:54] LABS: Polychromasia Slight
[2018-07-04 05:55] LABS: Calcium 8.3 MG/DL (8.5-10.1); Potassium 3.8 MMOL/L (3.5-5.1)
[2018-07-04] MEDS: CALCIUM ACETATE 667 MG CAPSULE PO SCH ×3 (08:58→17:51)
[2018-07-04] MEDS: MEGESTROL 40 MG TABLET PO SCH (08:58)
[2018-07-04] MEDS: PANTOPRAZOLE 40 MG TABLET PO SCH ×2 (08:58→21:12)
[2018-07-04] MEDS: MIDODRINE 5 MG TABLET PO SCH ×3 (08:58→21:12)
[2018-07-04] MEDS: FLUDROCORTISONE 0.1 MG TABLET PO SCH ×2 (08:59→21:12)
[2018-07-04] MEDS: DIGOXIN 0.125 MG TABLET PO SCH (08:59)
[2018-07-04] MEDS: predniSONE 20 MG TABLET PO SCH (08:59)
[2018-07-04] MEDS: INSULIN LISPRO 100 UNIT/ML SUBCUT SCH ×4 (09:00→21:12)
[2018-07-04] MEDS: INSULIN GLARGINE 100 UNIT/ML SUBCUT SCH (09:00)
[2018-07-04] MEDS: POLYETHYLENE GLYCOL POWDER 17 GM PACK PO SCH (09:01)
[2018-07-04] MEDS: DESITIN 4OZ/NYSTATIN 15 GRAM MIXTURE PASTE TOP SCH (12:03)
[2018-07-04] MEDS: WARFARIN 2.5 MG TABLET PO SCH (17:52)
[2018-07-04] MEDS: GABAPENTIN 100 MG CAPSULE PO SCH (21:12)
[2018-07-05] MEDS: DESITIN 4OZ/NYSTATIN 15 GRAM MIXTURE PASTE TOP SCH ×3 (00:30→20:37)
[2018-07-05] MEDS: ALBUTEROL/IPRATROPIUM 3 ML NEB RESP TX SCH ×6 (03:20→23:15)
[2018-07-05] MEDS: INSULIN GLARGINE 100 UNIT/ML SUBCUT SCH (08:31)
[2018-07-05] MEDS: INSULIN LISPRO 100 UNIT/ML SUBCUT SCH ×4 (08:32→20:37)
[2018-07-05] MEDS: PANTOPRAZOLE 40 MG TABLET PO SCH ×2 (08:33→20:37)
[2018-07-05] MEDS: POLYETHYLENE GLYCOL POWDER 17 GM PACK PO SCH (08:33)
[2018-07-05] MEDS: MEGESTROL 40 MG TABLET PO SCH (08:33)
[2018-07-05] MEDS: FLUDROCORTISONE 0.1 MG TABLET PO SCH ×2 (08:33→20:36)
[2018-07-05] MEDS: predniSONE 20 MG TABLET PO SCH (08:33)
[2018-07-05] MEDS: CALCIUM ACETATE 667 MG CAPSULE PO SCH ×3 (08:33→17:43)
[2018-07-05] MEDS: MIDODRINE 5 MG TABLET PO SCH ×3 (08:33→20:36)
[2018-07-05] MEDS: WARFARIN 2.5 MG TABLET PO SCH (17:42)
[2018-07-05] MEDS: GABAPENTIN 100 MG CAPSULE PO SCH (20:36)
[2018-07-06] MEDS: ALBUTEROL/IPRATROPIUM 3 ML NEB RESP TX SCH ×4 (02:03→14:04)
[2018-07-06 06:09] LABS: INR 1.3; PT Patient Result 14.3 SECS
[2018-07-06 06:25] LABS: Calcium 9.4 MG/DL (8.5-10.1); Osmolality,Calculated 279.1 MOS/KG (273-304); Potassium 3.3 MMOL/L (3.5-5.1)
[2018-07-06 06:36] LABS: Basophils % 0.1 % (0.0-0.8); Hematocrit 36.2 VOL% (35.7-47.0); Immature Granulocytes % 1.7 %; Immature Granulocytes Absolute 0.25 #; Lymphocytes # 0.2 10*3/uL (1.4-4.0); Lymphocytes % 1.6 % (21.3-54.2); Mean Corpuscular HGB Conc 29.6 GM/DL (32-36); Mean Corpuscular Hemoglobin 29 PG (27-34); Mean Corpuscular Volume 98.6 FL (87-102); Mean Platelet Volume 10.1 FL (9.6-12.0); Monocytes # 0.7 10*3/uL (0.11-0.8); Monocytes % 4.9 % (1.7-12.7); NRBC # 0.11 10*3/uL; Neutrophils # 13.6 10*3/uL (1.4-7.4); Neutrophils % 91.7 % (38.7-73.9); Platelet Count 185 T/CUMM (130-400); Red Blood Count 3.67 MC/CUMM (3.8-5.5); Red Cell Distribution Width 22.8 % (9.3-17.3); White Blood Count 14.8 T/CUMM (4-12)
[2018-07-06 06:38] LABS: Hemoglobin 10.7 GM/DL (12.0-16.0)
[2018-07-06 06:49] LABS: Band Neutrophils 2 % (0-10); Hypochromasia 1+; Lymphocytes 4 % (20-55); Macrocytosis Slight; Nucleated Red Blood Cells 1 (0-5); Ovalocytes Slight; Platelet Estimate Adequate; Segmented Neutrophils 93 % (50-85); Total Cells Counted 100
[2018-07-06] MEDS: INSULIN LISPRO 100 UNIT/ML SUBCUT SCH ×2 (07:26→12:19)
[2018-07-06] MEDS: MEGESTROL 40 MG TABLET PO SCH (09:13)
[2018-07-06] MEDS: CALCIUM ACETATE 667 MG CAPSULE PO SCH ×2 (09:13→12:19)
[2018-07-06] MEDS: MIDODRINE 5 MG TABLET PO SCH (09:13)
[2018-07-06] MEDS: DIGOXIN 0.125 MG TABLET PO SCH (09:13)
[2018-07-06] MEDS: POTASSIUM CHLORIDE 20 MEQ TABLET PO PRN (09:13)
[2018-07-06] MEDS: predniSONE 20 MG TABLET PO SCH (09:13)
[2018-07-06] MEDS: PANTOPRAZOLE 40 MG TABLET PO SCH (09:13)
[2018-07-06] MEDS: FLUDROCORTISONE 0.1 MG TABLET PO SCH (09:13)
[2018-07-06] MEDS: INSULIN GLARGINE 100 UNIT/ML SUBCUT SCH (09:14)
[2018-07-06] MEDS: DESITIN 4OZ/NYSTATIN 15 GRAM MIXTURE PASTE TOP SCH (09:14)
[2018-07-06] MEDS: POLYETHYLENE GLYCOL POWDER 17 GM PACK PO SCH (09:14)
[2018-07-06] MEDS ORDERED: WARFARIN 5 MG TABLET PO ONE (14:00)
[2018-07-06 16:02] VITALS: BP 94/63
== END 2018-07-06 15:50 | disposition home health service (06) | DRG 193 ==
LOC: EDUNIT# → EDBD → N.ED 18:23 → SUATTDRO 21:43 → N.EDINP 21:43 → N.CC 22:36 → N.2E 06-30 16:34
PROVIDERS: ADMIT Internal Medicine; ATTEND Internal Medicine

== ENCOUNTER 2018-09-28 16:12 | Inpatient (IN) ==
[2018-09-28 17:17] LABS: Alanine Aminotransferase < 6 U/L (13-56); Albumin 1.6 G/DL (3.4-5.0); Alkaline Phosphatase 168 U/L (45-117); Aspartate Amino Transferase 18 U/L (0-37); Blood Urea Nitrogen 17 MG/DL (7-18); Calcium 8.3 MG/DL (8.5-10.1); Glucose 132 MG/DL (74-106); Osmolality,Calculated 280.5 MOS/KG (273-304); Total Protein 6.2 G/DL (6.4-8.3)
[2018-09-28 17:28] LABS: Basophils % 0.3 % (0.0-0.8); Eosinophils % 0.4 % (0.00-10.9); Hematocrit 32.2 VOL% (35.7-47.0); Hemoglobin 9.9 GM/DL (12.0-16.0); Immature Granulocytes % 0.4 %; Immature Granulocytes Absolute 0.03 #; Lymphocytes # 0.9 10*3/uL (1.4-4.0); Mean Corpuscular HGB Conc 30.7 GM/DL (32-36); Mean Corpuscular Volume 92.3 FL (87-102); Mean Platelet Volume 9.8 FL (9.6-12.0); Neutrophils % 74.9 % (38.7-73.9); Platelet Count 233 T/CUMM (130-400); Red Blood Count 3.49 MC/CUMM (3.8-5.5); Red Cell Distribution Width 19.4 % (9.3-17.3); White Blood Count 6.7 T/CUMM (4-12)
[2018-09-28 17:46] LABS: PT Patient Result 101.7 SECS
[2018-09-28 17:47] LABS: INR 9.5
[2018-09-28] MEDS ORDERED: LEVOFLOXACIN INJ 500 MG in PREMIX 1 EACH IV STA (17:57)
[2018-09-28] MEDS ORDERED: GLUCAGON 1 MG VIAL IM PRN (18:34)
[2018-09-28] MEDS ORDERED: DEXTROSE 50% 25 GM/50 ML SYRINGE IV PRN (18:34)
[2018-09-28] MEDS ORDERED: ALBUTEROL/IPRATROPIUM 3 ML NEB RESP TX PRN (19:00)
[2018-09-28] MEDS ORDERED: ALBUTEROL 2.5 MG/3 ML NEB RESP TX PRN (19:00)
[2018-09-28] MEDS ORDERED: BISACODYL 5 MG TABLET PO PRN (19:36)
[2018-09-28] MEDS ORDERED: DOCUSATE SODIUM 100 MG CAPSULE PO PRN (19:36)
[2018-09-28] MEDS ORDERED: MELATONIN 3 MG TABLET PO PRN (19:36)
[2018-09-28] MEDS ORDERED: LOPERAMIDE 2 MG CAPSULE PO PRN (19:36)
[2018-09-28] MEDS ORDERED: POTASSIUM CHLORIDE 20 MEQ TABLET PO ONE (20:48)
[2018-09-28] MEDS: INSULIN REGULAR 100 UNIT/ML SUBCUT SCH (20:55)
[2018-09-28] MEDS: FLUDROCORTISONE 0.1 MG TABLET PO SCH (20:55)
[2018-09-28] MEDS: MIDODRINE 5 MG TABLET PO SCH (20:55)
[2018-09-28] MEDS: PANTOPRAZOLE 40 MG TABLET PO SCH (20:59)
[2018-09-29] MEDS: Fluticasone/Vilanterol [Breo Ellipta 200-25 Mcg Inh] INH SCH ×3 (00:24→22:45)
[2018-09-29 07:02] LABS: Basophils % 0.5 % (0.0-0.8); Eosinophils # 0.1 10*3/uL (0.0-0.87); Eosinophils % 1.9 % (0.00-10.9); Hematocrit 28.2 VOL% (35.7-47.0); Hemoglobin 8.9 GM/DL (12.0-16.0); Immature Granulocytes % 0.5 %; Immature Granulocytes Absolute 0.03 #; Lymphocytes # 0.9 10*3/uL (1.4-4.0); Lymphocytes % 16.2 % (21.3-54.2); Mean Corpuscular HGB Conc 31.6 GM/DL (32-36); Mean Corpuscular Volume 91.3 FL (87-102); Mean Platelet Volume 9.9 FL (9.6-12.0); Monocytes % 12.1 % (1.7-12.7); Neutrophils % 68.8 % (38.7-73.9); Platelet Count 219 T/CUMM (130-400); Red Blood Count 3.09 MC/CUMM (3.8-5.5); Red Cell Distribution Width 19.5 % (9.3-17.3); White Blood Count 5.8 T/CUMM (4-12)
[2018-09-29 07:19] LABS: Alanine Aminotransferase < 6 U/L (13-56); Albumin 1.4 G/DL (3.4-5.0); Alkaline Phosphatase 148 U/L (45-117); Aspartate Amino Transferase 14 U/L (0-37); Blood Urea Nitrogen 19 MG/DL (7-18); Calcium 8.4 MG/DL (8.5-10.1); Glucose 100 MG/DL (74-106); Osmolality,Calculated 278.5 MOS/KG (273-304); Total Protein 5.4 G/DL (6.4-8.3)
[2018-09-29 07:21] LABS: PT Patient Result 103.4 SECS
[2018-09-29 07:23] LABS: INR 9.7
[2018-09-29] MEDS ORDERED: PANTOPRAZOLE 40 MG TABLET PO SCH (09:00)
[2018-09-29] MEDS: INSULIN REGULAR 100 UNIT/ML SUBCUT SCH ×4 (09:29→20:58)
[2018-09-29] MEDS: PANTOPRAZOLE 40 MG TABLET PO SCH ×2 (09:31→20:58)
[2018-09-29] MEDS: CALCIUM ACETATE 667 MG CAPSULE PO SCH ×3 (09:31→18:05)
[2018-09-29] MEDS: MEGESTROL 40 MG TABLET PO SCH (09:32)
[2018-09-29] MEDS: ASCORBIC ACID 500 MG TABLET PO SCH (09:32)
[2018-09-29] MEDS: FLUDROCORTISONE 0.1 MG TABLET PO SCH ×2 (09:32→20:57)
[2018-09-29] MEDS: POLYETHYLENE GLYCOL POWDER 17 GM PACK PO SCH (09:32)
[2018-09-29] MEDS: MULTIVITAMIN (CENTRUM) TABLET PO SCH (09:32)
[2018-09-29] MEDS: CYANOCOBALAMIN 500 MCG TABLET PO SCH (09:32)
[2018-09-29] MEDS: MIDODRINE 5 MG TABLET PO SCH ×3 (09:32→20:57)
[2018-09-29] MEDS: CYPROHEPTADINE 4 MG TABLET PO SCH ×3 (09:32→18:05)
[2018-09-29] MEDS: cefTRIAXone 1,000 MG in SYRINGE 1 EACH IV SCH (20:51)
[2018-09-29] MEDS: AZITHROMYCIN INJ 500 MG in SODIUM CHLORIDE 0.9% 250 ML IV SCH (20:57)
[2018-09-30 05:04] LABS: Basophils % 0.2 % (0.0-0.8); Eosinophils # 0.1 10*3/uL (0.0-0.87); Eosinophils % 1.2 % (0.00-10.9); Hematocrit 29.5 VOL% (35.7-47.0); Hemoglobin 9.1 GM/DL (12.0-16.0); Immature Granulocytes % 0.7 %; Immature Granulocytes Absolute 0.06 #; Lymphocytes % 11.2 % (21.3-54.2); Mean Corpuscular HGB Conc 30.8 GM/DL (32-36); Mean Corpuscular Volume 91.6 FL (87-102); Mean Platelet Volume 10.1 FL (9.6-12.0); Monocytes % 7.9 % (1.7-12.7); Neutrophils % 78.8 % (38.7-73.9); Platelet Count 208 T/CUMM (130-400); Red Blood Count 3.22 MC/CUMM (3.8-5.5); Red Cell Distribution Width 19.4 % (9.3-17.3); White Blood Count 9.1 T/CUMM (4-12)
[2018-09-30 05:24] LABS: Calcium 8.4 MG/DL (8.5-10.1); Osmolality,Calculated 277.5 MOS/KG (273-304)
[2018-09-30] MEDS: POLYETHYLENE GLYCOL POWDER 17 GM PACK PO SCH (08:26)
[2018-09-30] MEDS: CALCIUM ACETATE 667 MG CAPSULE PO SCH ×3 (08:28→16:36)
[2018-09-30] MEDS: CYPROHEPTADINE 4 MG TABLET PO SCH ×3 (08:28→16:11)
[2018-09-30] MEDS: ASCORBIC ACID 500 MG TABLET PO SCH (08:28)
[2018-09-30] MEDS: MULTIVITAMIN (CENTRUM) TABLET PO SCH (08:28)
[2018-09-30] MEDS: MIDODRINE 5 MG TABLET PO SCH ×3 (08:28→21:22)
[2018-09-30] MEDS: FLUDROCORTISONE 0.1 MG TABLET PO SCH ×2 (08:29→21:18)
[2018-09-30] MEDS: MEGESTROL 40 MG TABLET PO SCH (08:29)
[2018-09-30] MEDS: CYANOCOBALAMIN 500 MCG TABLET PO SCH (08:29)
[2018-09-30] MEDS: PANTOPRAZOLE 40 MG TABLET PO SCH ×2 (08:29→21:18)
[2018-09-30 08:30] LABS: PT Patient Result 80.3 SECS
[2018-09-30] MEDS: INSULIN REGULAR 100 UNIT/ML SUBCUT SCH ×4 (08:30→21:18)
[2018-09-30 08:32] LABS: INR 7.5
[2018-09-30] MEDS: Fluticasone/Vilanterol [Breo Ellipta 200-25 Mcg Inh] INH SCH ×2 (08:39→21:23)
[2018-09-30] MEDS: ZINC OXIDE PASTE 113 GM TUBE TOP SCH ×2 (15:08→21:23)
[2018-09-30] MEDS: ONDANSETRON 4 MG/2 ML VIAL IV PRN (16:36)
[2018-09-30] MEDS: cefTRIAXone 1,000 MG in SYRINGE 1 EACH IV SCH (21:10)
[2018-09-30] MEDS: AZITHROMYCIN INJ 500 MG in SODIUM CHLORIDE 0.9% 250 ML IV SCH (21:16)
[2018-10-01 05:08] LABS: Basophils % 0.3 % (0.0-0.8); Eosinophils # 0.1 10*3/uL (0.0-0.87); Eosinophils % 0.8 % (0.00-10.9); Hematocrit 28.4 VOL% (35.7-47.0); Hemoglobin 8.7 GM/DL (12.0-16.0); Immature Granulocytes % 0.9 %; Lymphocytes # 1.7 10*3/uL (1.4-4.0); Lymphocytes % 14.2 % (21.3-54.2); Mean Corpuscular HGB Conc 30.6 GM/DL (32-36); Mean Platelet Volume 9.9 FL (9.6-12.0); Monocytes % 12.9 % (1.7-12.7); Neutrophils % 70.9 % (38.7-73.9); Platelet Count 207 T/CUMM (130-400); Red Blood Count 3.12 MC/CUMM (3.8-5.5); Red Cell Distribution Width 19.6 % (9.3-17.3); White Blood Count 11.6 T/CUMM (4-12)
[2018-10-01 05:30] LABS: PT Patient Result 71.1 SECS
[2018-10-01 05:31] LABS: INR 6.7
[2018-10-01 05:42] LABS: Calcium 8.4 MG/DL (8.5-10.1); Osmolality,Calculated 273.7 MOS/KG (273-304)
[2018-10-01] MEDS: MIDODRINE 5 MG TABLET PO SCH ×3 (08:17→20:56)
[2018-10-01] MEDS: Fluticasone/Vilanterol [Breo Ellipta 200-25 Mcg Inh] INH SCH ×2 (09:18→20:58)
[2018-10-01] MEDS: INSULIN REGULAR 100 UNIT/ML SUBCUT SCH ×4 (09:23→21:08)
[2018-10-01] MEDS: CYPROHEPTADINE 4 MG TABLET PO SCH ×3 (11:19→16:59)
[2018-10-01] MEDS: CALCIUM ACETATE 667 MG CAPSULE PO SCH ×3 (11:20→16:59)
[2018-10-01] MEDS: MULTIVITAMIN (CENTRUM) TABLET PO SCH (11:56)
[2018-10-01] MEDS: CYANOCOBALAMIN 500 MCG TABLET PO SCH (11:56)
[2018-10-01] MEDS: MEGESTROL 40 MG TABLET PO SCH (11:57)
[2018-10-01] MEDS: ZINC OXIDE PASTE 113 GM TUBE TOP SCH ×2 (11:57→20:58)
[2018-10-01] MEDS: ASCORBIC ACID 500 MG TABLET PO SCH (11:57)
[2018-10-01] MEDS: FLUDROCORTISONE 0.1 MG TABLET PO SCH ×2 (11:57→20:57)
[2018-10-01] MEDS: PANTOPRAZOLE 40 MG TABLET PO SCH ×2 (11:57→20:57)
[2018-10-01] MEDS: POLYETHYLENE GLYCOL POWDER 17 GM PACK PO SCH (11:58)
[2018-10-01] MEDS: ONDANSETRON 4 MG/2 ML VIAL IV PRN (17:08)
[2018-10-01] MEDS: cefTRIAXone 1,000 MG in SYRINGE 1 EACH IV SCH (20:51)
[2018-10-01] MEDS: AZITHROMYCIN INJ 500 MG in SODIUM CHLORIDE 0.9% 250 ML IV SCH (20:55)
[2018-10-02 04:57] LABS: Basophils % 0.6 % (0.0-0.8); Eosinophils # 0.2 10*3/uL (0.0-0.87); Eosinophils % 2.8 % (0.00-10.9); Immature Granulocytes % 0.6 %; Immature Granulocytes Absolute 0.04 #; Lymphocytes # 0.9 10*3/uL (1.4-4.0); Lymphocytes % 14.4 % (21.3-54.2); Mean Corpuscular Volume 91.8 FL (87-102); Mean Platelet Volume 10.2 FL (9.6-12.0); Monocytes % 10.6 % (1.7-12.7); Platelet Count 196 T/CUMM (130-400); Red Blood Count 3.16 MC/CUMM (3.8-5.5); Red Cell Distribution Width 19.8 % (9.3-17.3); White Blood Count 6.3 T/CUMM (4-12)
[2018-10-02 05:08] LABS: INR 4.5
[2018-10-02 05:11] LABS: PT Patient Result 48.7 SECS
[2018-10-02 05:22] LABS: Calcium 8.4 MG/DL (8.5-10.1); Osmolality,Calculated 279.4 MOS/KG (273-304)
[2018-10-02] MEDS: INSULIN REGULAR 100 UNIT/ML SUBCUT SCH ×3 (07:53→16:47)
[2018-10-02] MEDS: MIDODRINE 5 MG TABLET PO SCH ×3 (09:20→21:52)
[2018-10-02] MEDS: FLUDROCORTISONE 0.1 MG TABLET PO SCH ×2 (09:20→21:51)
[2018-10-02] MEDS: CYANOCOBALAMIN 500 MCG TABLET PO SCH (09:21)
[2018-10-02] MEDS: ZINC OXIDE PASTE 113 GM TUBE TOP SCH ×2 (09:22→21:52)
[2018-10-02] MEDS: POLYETHYLENE GLYCOL POWDER 17 GM PACK PO SCH (09:22)
[2018-10-02] MEDS: MEGESTROL 40 MG TABLET PO SCH (09:22)
[2018-10-02] MEDS: PANTOPRAZOLE 40 MG TABLET PO SCH ×2 (09:22→21:52)
[2018-10-02] MEDS: CYPROHEPTADINE 4 MG TABLET PO SCH ×3 (09:22→16:49)
[2018-10-02] MEDS: ASCORBIC ACID 500 MG TABLET PO SCH (09:22)
[2018-10-02] MEDS: MULTIVITAMIN (CENTRUM) TABLET PO SCH (09:22)
[2018-10-02] MEDS: Fluticasone/Vilanterol [Breo Ellipta 200-25 Mcg Inh] INH SCH ×2 (09:23→21:52)
[2018-10-02] MEDS: CALCIUM ACETATE 667 MG CAPSULE PO SCH ×3 (09:25→16:49)
[2018-10-02] MEDS: ACETAMINOPHEN 325 MG TABLET PO PRN (12:30)
[2018-10-02] MEDS: cefTRIAXone 1,000 MG in SYRINGE 1 EACH IV SCH (22:15)
[2018-10-02] MEDS: AZITHROMYCIN INJ 500 MG in SODIUM CHLORIDE 0.9% 250 ML IV SCH (22:20)
[2018-10-03] MEDS: ACETAMINOPHEN 325 MG TABLET PO PRN (05:27)
[2018-10-03 07:36] VITALS: BP 86/50
[2018-10-03] MEDS: INSULIN REGULAR 100 UNIT/ML SUBCUT SCH (08:07)
[2018-10-03] MEDS: CYANOCOBALAMIN 500 MCG TABLET PO SCH (08:11)
[2018-10-03] MEDS: MEGESTROL 40 MG TABLET PO SCH (08:11)
[2018-10-03] MEDS: CALCIUM ACETATE 667 MG CAPSULE PO SCH (08:11)
[2018-10-03] MEDS: MIDODRINE 5 MG TABLET PO SCH (08:11)
[2018-10-03] MEDS: MULTIVITAMIN (CENTRUM) TABLET PO SCH (08:11)
[2018-10-03] MEDS: POLYETHYLENE GLYCOL POWDER 17 GM PACK PO SCH (08:11)
[2018-10-03] MEDS: PANTOPRAZOLE 40 MG TABLET PO SCH (08:11)
[2018-10-03] MEDS: ASCORBIC ACID 500 MG TABLET PO SCH (08:11)
[2018-10-03] MEDS: CYPROHEPTADINE 4 MG TABLET PO SCH (08:12)
[2018-10-03] MEDS: ZINC OXIDE PASTE 113 GM TUBE TOP SCH (08:12)
[2018-10-03] MEDS: Fluticasone/Vilanterol [Breo Ellipta 200-25 Mcg Inh] INH SCH (08:12)
[2018-10-03] MEDS: FLUDROCORTISONE 0.1 MG TABLET PO SCH (08:12)
[2018-10-03 09:22] LABS: INR 4.1
[2018-10-03 09:23] LABS: PT Patient Result 43.8 SECS
== END 2018-10-03 13:12 | disposition home or self-care (01) | DRG 193 ==
LOC: EDUNIT# → EDBD → N.ED 16:12 → N.EDINP 18:34 → N.5E 19:28
PROVIDERS: ADMIT Internal Medicine; ATTEND Internal Medicine

== ENCOUNTER 2018-11-06 19:08 | Inpatient (IN) ==
[2018-11-06] MEDS ORDERED: ALBUTEROL/IPRATROPIUM 3 ML NEB RESP TX STA (19:34)
[2018-11-06] MEDS ORDERED: SODIUM CHLORIDE 0.9% 500 ML IV STA (19:34)
[2018-11-06 20:11] LABS: ABG Base Excess -12.5 MMOL/L (-2.5-2.5); ABG HCO3 13.9 MMOL/L (20-26); ABG Oxygen Saturation 35.3 % (95-100); ABG PCO2 28.9 MM HG (35-48); ABG PH 7.274 (7.35-7.45); ABG TCO2 13.3 MMOL/L (23-27)
[2018-11-06 20:16] LABS: ABG PO2 25.2 MM HG (80-95)
[2018-11-06] MEDS ORDERED: PIPERACILLIN/TAZOBACTAM 3,375 MG in SODIUM CHLORIDE 0.9% 100 ML IV ONE (20:16)
[2018-11-06] MEDS ORDERED: SODIUM BICARBONATE 50 MEQ/50 ML VIAL IV STA (20:22)
[2018-11-06] MEDS ORDERED: SODIUM BICARBONATE 50 MEQ/50 ML SYRINGE IV STA (20:24)
[2018-11-06 20:47] LABS: Basophils % 0.4 % (0.0-0.8); Eosinophils % 0.5 % (0.00-10.9); Hematocrit 29.8 VOL% (35.7-47.0); Hemoglobin 9.5 GM/DL (12.0-16.0); Immature Granulocytes % 0.7 %; Immature Granulocytes Absolute 0.06 #; Lymphocytes # 1.2 10*3/uL (1.4-4.0); Mean Corpuscular HGB Conc 31.9 GM/DL (32-36); Mean Corpuscular Volume 82.1 FL (87-102); Mean Platelet Volume 9.4 FL (9.6-12.0); Monocytes % 9.2 % (1.7-12.7); NRBC # 0.02 10*3/uL; Neutrophils % 75.2 % (38.7-73.9); Platelet Count 265 T/CUMM (130-400); Red Blood Count 3.63 MC/CUMM (3.8-5.5); Red Cell Distribution Width 23.8 % (9.3-17.3); White Blood Count 8.4 T/CUMM (4-12)
[2018-11-06 21:03] LABS: PT Patient Result 56.2 SECS
[2018-11-06 21:04] LABS: INR 5.2
[2018-11-06 21:08] LABS: Anisocytosis 1+; Hypochromasia 1+; Polychromasia Few; Target Cells Few
[2018-11-06 21:09] LABS: Platelet Estimate Adequate
[2018-11-06 21:11] LABS: Albumin 1.4 G/DL (3.4-5.0); Bilirubin,Total 0.7 MG/DL (0.2-1.0); Calcium 8.7 MG/DL (8.5-10.1); Osmolality,Calculated 273.8 MOS/KG (273-304); Total Protein 6.4 G/DL (6.4-8.3)
[2018-11-06] MEDS ORDERED: POTASSIUM BICARB EFFERVESCENT 25 MEQ TABLET PO ONE (21:20)
[2018-11-06] MEDS ORDERED: ALBUTEROL 2.5 MG/3 ML NEB RESP TX PRN (21:48)
[2018-11-06] MEDS ORDERED: DEXTROSE 50% 25 GM/50 ML VIAL IV PRN (21:48)
[2018-11-06] MEDS ORDERED: GLUCAGON 1 MG VIAL IM PRN (21:48)
[2018-11-06] MEDS ORDERED: ACETAMINOPHEN 325 MG TABLET PO PRN (21:48)
[2018-11-06] MEDS: MIDODRINE 5 MG TABLET PO SCH (22:00)
[2018-11-06] MEDS: INSULIN REGULAR 100 UNIT/ML SUBCUT SCH (22:30)
[2018-11-07] MEDS: MIDODRINE 5 MG TABLET PO SCH ×4 (00:19→21:56)
[2018-11-07] MEDS: FLUDROCORTISONE 0.1 MG TABLET PO SCH ×3 (01:29→21:56)
[2018-11-07] MEDS: PIPERACILLIN/TAZOBACTAM 3,375 MG in SODIUM CHLORIDE 0.9% 100 ML IV SCH ×3 (06:30→21:58)
[2018-11-07] MEDS: Fluticasone Furoate-Vilanterol [Breo Ellipta] INH SCH (06:33)
[2018-11-07 07:15] LABS: Basophils % 0.1 % (0.0-0.8); Hematocrit 29.5 VOL% (35.7-47.0); Hemoglobin 9.7 GM/DL (12.0-16.0); Immature Granulocytes % 0.5 %; Immature Granulocytes Absolute 0.07 #; Lymphocytes # 0.8 10*3/uL (1.4-4.0); Lymphocytes % 5.8 % (21.3-54.2); Mean Corpuscular HGB Conc 32.9 GM/DL (32-36); Mean Corpuscular Volume 81.5 FL (87-102); Mean Platelet Volume 10.1 FL (9.6-12.0); Monocytes % 5.4 % (1.7-12.7); Neutrophils % 88.2 % (38.7-73.9); Platelet Count 301 T/CUMM (130-400); Red Blood Count 3.62 MC/CUMM (3.8-5.5); Red Cell Distribution Width 23.7 % (9.3-17.3); White Blood Count 13.6 T/CUMM (4-12)
[2018-11-07 07:28] LABS: Allen Test Positive; Pt O2 Delivery Device BIPAP
[2018-11-07 07:29] LABS: ABG Base Excess 5.5 MMOL/L (-2.5-2.5); ABG HCO3 29.3 MMOL/L (20-26); ABG Oxygen Saturation 96.6 % (95-100); ABG PCO2 53.9 MM HG (35-48); ABG PH 7.378 (7.35-7.45); ABG PO2 85.6 MM HG (80-95); ABG TCO2 29.2 MMOL/L (23-27)
[2018-11-07 07:34] LABS: Albumin 1.4 G/DL (3.4-5.0); Bilirubin,Total 0.8 MG/DL (0.2-1.0); Calcium 8.9 MG/DL (8.5-10.1); Osmolality,Calculated 271.1 MOS/KG (273-304); Total Protein 6.7 G/DL (6.4-8.3)
[2018-11-07 07:52] LABS: Hypochromasia 1+; Platelet Estimate Adequate; Target Cells Few
[2018-11-07 07:54] LABS: Macrocytosis Slight; Pappenheimer Bodies Few
[2018-11-07 07:55] LABS: Polychromasia Few
[2018-11-07 08:40] LABS: INR 4.6
[2018-11-07] MEDS: INSULIN REGULAR 100 UNIT/ML SUBCUT SCH ×4 (08:44→21:57)
[2018-11-07] MEDS: ASCORBIC ACID 500 MG TABLET PO SCH (08:45)
[2018-11-07 08:46] LABS: PT Patient Result 49.2 SECS
[2018-11-07] MEDS: CALCIUM ACETATE 667 MG CAPSULE PO SCH ×3 (08:48→17:32)
[2018-11-07] MEDS: CYANOCOBALAMIN 500 MCG TABLET PO SCH (08:48)
[2018-11-07] MEDS: MEGESTROL 40 MG TABLET PO SCH (08:49)
[2018-11-07] MEDS: PANTOPRAZOLE 40 MG TABLET PO SCH ×2 (08:49→21:56)
[2018-11-07] MEDS: MULTIVITAMIN (CENTRUM) TABLET PO SCH (08:49)
[2018-11-07] MEDS: POLYETHYLENE GLYCOL POWDER 17 GM PACK PO SCH (08:50)
[2018-11-07] MEDS: CYPROHEPTADINE 4 MG TABLET PO SCH ×3 (08:59→17:33)
[2018-11-07] MEDS ORDERED: PANTOPRAZOLE 40 MG TABLET PO SCH (09:00)
[2018-11-07 11:24] LABS: Allen Test Positive; Pt O2 Delivery Device BIPAP
[2018-11-07 11:27] LABS: ABG HCO3 30.4 MMOL/L (20-26); ABG Oxygen Saturation 70.8 % (95-100); ABG PCO2 54.3 MM HG (35-48); ABG PH 7.393 (7.35-7.45); ABG TCO2 30.9 MMOL/L (23-27)
[2018-11-07 11:34] LABS: ABG PO2 39.3 MM HG (80-95)
[2018-11-07 11:47] LABS: ABG Oxygen Saturation 96.2 % (95-100); ABG PCO2 54.9 MM HG (35-48); ABG PH 7.384 (7.35-7.45); ABG PO2 86.1 MM HG (80-95); ABG TCO2 33.7 MMOL/L (23-27)
[2018-11-07] MEDS: methylPREDNISolone SOD SUC 40 MG/1 ML VIAL IV SCH (17:32)
[2018-11-08] MEDS ORDERED: SODIUM CHLORIDE 0.9% 250 ML IV ONE ×2 (01:45→02:25)
[2018-11-08] MEDS: methylPREDNISolone SOD SUC 40 MG/1 ML VIAL IV SCH ×3 (02:05→17:56)
[2018-11-08] MEDS ORDERED: NOREPINEPHRINE 8 MG in SODIUM CHLORIDE 0.9% 242 ML IV PRN (04:08)
[2018-11-08 06:40] LABS: Basophils % 0.1 % (0.0-0.8); Eosinophils % 0.1 % (0.00-10.9); Immature Granulocytes % 0.7 %; Immature Granulocytes Absolute 0.07 #; Lymphocytes # 0.5 10*3/uL (1.4-4.0); Lymphocytes % 4.3 % (21.3-54.2); Mean Corpuscular Volume 83.3 FL (87-102); Mean Platelet Volume 9.2 FL (9.6-12.0); Monocytes % 1.9 % (1.7-12.7); NRBC # 0.02 10*3/uL; Neutrophils % 92.9 % (38.7-73.9); Platelet Count 308 T/CUMM (130-400); Red Blood Count 3.48 MC/CUMM (3.8-5.5); Red Cell Distribution Width 23.7 % (9.3-17.3); White Blood Count 10.5 T/CUMM (4-12)
[2018-11-08 07:01] LABS: Lymphocytes 1 % (20-55); Segmented Neutrophils 93 % (50-85); Total Cells Counted 100
[2018-11-08 07:02] LABS: Anisocytosis 1+; Hypochromasia 1+; Macrocytosis 1+; Polychromasia Slight; Target Cells Few
[2018-11-08 07:04] LABS: Pappenheimer Bodies Few
[2018-11-08] MEDS: PIPERACILLIN/TAZOBACTAM 3,375 MG in SODIUM CHLORIDE 0.9% 100 ML IV SCH ×3 (07:05→18:58)
[2018-11-08 07:37] LABS: Calcium 9.2 MG/DL (8.5-10.1); Osmolality,Calculated 274.7 MOS/KG (273-304)
[2018-11-08] MEDS: INSULIN REGULAR 100 UNIT/ML SUBCUT SCH ×4 (08:39→23:24)
[2018-11-08] MEDS: FLUDROCORTISONE 0.1 MG TABLET PO SCH ×2 (08:56→21:45)
[2018-11-08] MEDS: CALCIUM ACETATE 667 MG CAPSULE PO SCH ×3 (08:56→17:56)
[2018-11-08] MEDS: MULTIVITAMIN (CENTRUM) TABLET PO SCH (08:56)
[2018-11-08] MEDS: MIDODRINE 5 MG TABLET PO SCH ×3 (08:56→21:45)
[2018-11-08] MEDS: ASCORBIC ACID 500 MG TABLET PO SCH (08:57)
[2018-11-08] MEDS: PANTOPRAZOLE 40 MG TABLET PO SCH ×2 (08:57→21:45)
[2018-11-08] MEDS: CYANOCOBALAMIN 500 MCG TABLET PO SCH (08:57)
[2018-11-08] MEDS: MEGESTROL 40 MG TABLET PO SCH (08:57)
[2018-11-08] MEDS: POLYETHYLENE GLYCOL POWDER 17 GM PACK PO SCH (08:57)
[2018-11-08] MEDS: CYPROHEPTADINE 4 MG TABLET PO SCH ×3 (09:55→17:55)
[2018-11-08 10:31] LABS: ABG Base Excess 2.2 MMOL/L (-2.5-2.5); ABG HCO3 26.3 MMOL/L (20-26); ABG Oxygen Saturation 95.3 % (95-100); ABG PCO2 50.8 MM HG (35-48); ABG PH 7.355 (7.35-7.45); ABG PO2 78.1 MM HG (80-95); ABG TCO2 26.1 MMOL/L (23-27)
[2018-11-08] MEDS ORDERED: ALBUMIN 25% 25 GM in PREMIX 1 EACH IV ONE (11:00)
[2018-11-08] MEDS ORDERED: HEPARIN 10,000 UNIT/10 ML VIAL IV PRN (15:41)
[2018-11-09] MEDS: methylPREDNISolone SOD SUC 40 MG/1 ML VIAL IV SCH ×3 (01:20→17:01)
[2018-11-09] MEDS: PIPERACILLIN/TAZOBACTAM 3,375 MG in SODIUM CHLORIDE 0.9% 100 ML IV SCH ×3 (01:50→18:46)
[2018-11-09 05:41] LABS: Basophils % 0.1 % (0.0-0.8); Hematocrit 25.2 VOL% (35.7-47.0); Hemoglobin 8.1 GM/DL (12.0-16.0); Immature Granulocytes % 0.7 %; Immature Granulocytes Absolute 0.08 #; Lymphocytes # 0.5 10*3/uL (1.4-4.0); Mean Corpuscular HGB Conc 32.1 GM/DL (32-36); Mean Corpuscular Volume 82.4 FL (87-102); Mean Platelet Volume 10.8 FL (9.6-12.0); Monocytes % 3.2 % (1.7-12.7); NRBC # 0.02 10*3/uL; Platelet Count 308 T/CUMM (130-400); Red Blood Count 3.06 MC/CUMM (3.8-5.5); Red Cell Distribution Width 24.1 % (9.3-17.3); White Blood Count 11.7 T/CUMM (4-12)
[2018-11-09 05:48] LABS: PT Patient Result 57.6 SECS
[2018-11-09 05:50] LABS: INR 5.4
[2018-11-09 06:10] LABS: Calcium 9.2 MG/DL (8.5-10.1); Osmolality,Calculated 279.5 MOS/KG (273-304)
[2018-11-09 06:34] LABS: Lymphocytes 3 % (20-55); Segmented Neutrophils 97 % (50-85); Total Cells Counted 100
[2018-11-09 06:35] LABS: Platelet Estimate Normal; Polychromasia Few; Target Cells Few
[2018-11-09 06:36] LABS: Hypochromasia 1+; Microcytosis 1+
[2018-11-09] MEDS: MIDODRINE 5 MG TABLET PO SCH ×3 (09:07→22:03)
[2018-11-09] MEDS: CYANOCOBALAMIN 500 MCG TABLET PO SCH (09:07)
[2018-11-09] MEDS: CALCIUM ACETATE 667 MG CAPSULE PO SCH ×3 (09:07→17:01)
[2018-11-09] MEDS: FLUDROCORTISONE 0.1 MG TABLET PO SCH ×2 (09:07→22:03)
[2018-11-09] MEDS: CYPROHEPTADINE 4 MG TABLET PO SCH ×3 (09:07→17:01)
[2018-11-09] MEDS: MULTIVITAMIN (CENTRUM) TABLET PO SCH (09:07)
[2018-11-09] MEDS: ASCORBIC ACID 500 MG TABLET PO SCH (09:07)
[2018-11-09] MEDS: PANTOPRAZOLE 40 MG TABLET PO SCH ×2 (09:07→22:04)
[2018-11-09] MEDS: MEGESTROL 40 MG TABLET PO SCH (09:07)
[2018-11-09] MEDS: INSULIN REGULAR 100 UNIT/ML SUBCUT SCH ×4 (09:08→22:03)
[2018-11-09] MEDS: POLYETHYLENE GLYCOL POWDER 17 GM PACK PO SCH (09:08)
[2018-11-09] MEDS ORDERED: ALBUMIN 25% 25 GM in PREMIX 1 EACH IV ONE (11:53)
[2018-11-09] MEDS: Fluticasone Furoate-Vilanterol [Breo Ellipta] INH SCH (22:05)
[2018-11-10] MEDS: PIPERACILLIN/TAZOBACTAM 3,375 MG in SODIUM CHLORIDE 0.9% 100 ML IV SCH ×3 (02:31→19:27)
[2018-11-10] MEDS: methylPREDNISolone SOD SUC 40 MG/1 ML VIAL IV SCH ×3 (02:31→17:35)
[2018-11-10 04:46] LABS: Immature Granulocytes % 0.9 %; Immature Granulocytes Absolute 0.07 #; Lymphocytes # 0.5 10*3/uL (1.4-4.0); Lymphocytes % 6.1 % (21.3-54.2); Mean Corpuscular Volume 83.6 FL (87-102); Mean Platelet Volume 10.2 FL (9.6-12.0); Monocytes % 2.3 % (1.7-12.7); NRBC # 0.06 10*3/uL; Neutrophils % 90.7 % (38.7-73.9); Platelet Count 227 T/CUMM (130-400); Red Blood Count 2.99 MC/CUMM (3.8-5.5); Red Cell Distribution Width 24.3 % (9.3-17.3); White Blood Count 8.2 T/CUMM (4-12)
[2018-11-10 04:58] LABS: Calcium 9.8 MG/DL (8.5-10.1); Osmolality,Calculated 277.7 MOS/KG (273-304)
[2018-11-10 05:45] LABS: Band Neutrophils 1 % (0-10); Lymphocytes 8 % (20-55); Segmented Neutrophils 88 % (50-85); Total Cells Counted 100
[2018-11-10 05:46] LABS: Hypochromasia 2+; Platelet Estimate Normal; Polychromasia Few; Target Cells 4+
[2018-11-10 06:21] LABS: PT Patient Result 68.4 SECS
[2018-11-10 06:23] LABS: INR 6.4
[2018-11-10] MEDS: MIDODRINE 5 MG TABLET PO SCH ×3 (09:01→21:11)
[2018-11-10] MEDS: MULTIVITAMIN (CENTRUM) TABLET PO SCH (09:01)
[2018-11-10] MEDS: CYANOCOBALAMIN 500 MCG TABLET PO SCH (09:02)
[2018-11-10] MEDS: INSULIN REGULAR 100 UNIT/ML SUBCUT SCH ×4 (09:02→21:29)
[2018-11-10] MEDS: CALCIUM ACETATE 667 MG CAPSULE PO SCH ×3 (09:03→17:35)
[2018-11-10] MEDS: CYPROHEPTADINE 4 MG TABLET PO SCH ×3 (09:04→17:35)
[2018-11-10] MEDS: MEGESTROL 40 MG TABLET PO SCH (09:04)
[2018-11-10] MEDS: FLUDROCORTISONE 0.1 MG TABLET PO SCH ×2 (09:04→21:11)
[2018-11-10] MEDS: PANTOPRAZOLE 40 MG TABLET PO SCH ×2 (09:04→21:11)
[2018-11-10] MEDS: POLYETHYLENE GLYCOL POWDER 17 GM PACK PO SCH (09:05)
[2018-11-10] MEDS: Fluticasone Furoate-Vilanterol [Breo Ellipta] INH SCH ×2 (09:05→21:23)
[2018-11-10] MEDS: ASCORBIC ACID 500 MG TABLET PO SCH (09:05)
[2018-11-11] MEDS: methylPREDNISolone SOD SUC 40 MG/1 ML VIAL IV SCH ×3 (01:45→16:58)
[2018-11-11] MEDS: PIPERACILLIN/TAZOBACTAM 3,375 MG in SODIUM CHLORIDE 0.9% 100 ML IV SCH ×3 (01:47→18:54)
[2018-11-11 05:59] LABS: Basophils % 0.1 % (0.0-0.8); Hematocrit 25.1 VOL% (35.7-47.0); Hemoglobin 7.8 GM/DL (12.0-16.0); Immature Granulocytes % 1.3 %; Immature Granulocytes Absolute 0.11 #; Lymphocytes # 0.4 10*3/uL (1.4-4.0); Lymphocytes % 4.5 % (21.3-54.2); Mean Corpuscular HGB Conc 31.1 GM/DL (32-36); Mean Corpuscular Volume 84.8 FL (87-102); Mean Platelet Volume 9.9 FL (9.6-12.0); Monocytes % 4.5 % (1.7-12.7); NRBC # 0.11 10*3/uL; Neutrophils % 89.6 % (38.7-73.9); Platelet Count 206 T/CUMM (130-400); Red Blood Count 2.96 MC/CUMM (3.8-5.5); Red Cell Distribution Width 24.8 % (9.3-17.3); White Blood Count 8.7 T/CUMM (4-12)
[2018-11-11 06:02] LABS: INR 4.6
[2018-11-11 06:04] LABS: PT Patient Result 49.3 SECS
[2018-11-11 06:31] LABS: Calcium 9.4 MG/DL (8.5-10.1); Osmolality,Calculated 276.5 MOS/KG (273-304)
[2018-11-11 07:30] LABS: Band Neutrophils 1 % (0-10); Hypochromasia 2+; Lymphocytes 4 % (20-55); Segmented Neutrophils 92 % (50-85); Total Cells Counted 100
[2018-11-11 07:31] LABS: Polychromasia Slight; Target Cells 1+
[2018-11-11 07:32] LABS: Microcytosis 1+
[2018-11-11 07:33] LABS: Pappenheimer Bodies Few
[2018-11-11 07:35] LABS: Anisocytosis 1+
[2018-11-11 07:37] LABS: Basophilic Stippling Slight
[2018-11-11] MEDS: INSULIN REGULAR 100 UNIT/ML SUBCUT SCH ×4 (09:22→20:25)
[2018-11-11] MEDS: CALCIUM ACETATE 667 MG CAPSULE PO SCH ×3 (09:23→16:59)
[2018-11-11] MEDS: MIDODRINE 5 MG TABLET PO SCH ×3 (09:24→20:26)
[2018-11-11] MEDS: FLUDROCORTISONE 0.1 MG TABLET PO SCH ×2 (09:24→20:26)
[2018-11-11] MEDS: ASCORBIC ACID 500 MG TABLET PO SCH (09:24)
[2018-11-11] MEDS: POLYETHYLENE GLYCOL POWDER 17 GM PACK PO SCH (09:24)
[2018-11-11] MEDS: CYPROHEPTADINE 4 MG TABLET PO SCH ×3 (09:25→16:59)
[2018-11-11] MEDS: CYANOCOBALAMIN 500 MCG TABLET PO SCH (09:25)
[2018-11-11] MEDS: PANTOPRAZOLE 40 MG TABLET PO SCH ×2 (09:25→20:26)
[2018-11-11] MEDS: MULTIVITAMIN (CENTRUM) TABLET PO SCH (09:25)
[2018-11-11] MEDS: Fluticasone Furoate-Vilanterol [Breo Ellipta] INH SCH ×2 (09:26→20:26)
[2018-11-12] MEDS: methylPREDNISolone SOD SUC 40 MG/1 ML VIAL IV SCH ×2 (02:01→17:14)
[2018-11-12] MEDS: PIPERACILLIN/TAZOBACTAM 3,375 MG in SODIUM CHLORIDE 0.9% 100 ML IV SCH ×3 (02:01→23:40)
[2018-11-12 05:33] LABS: Basophils % 0.1 % (0.0-0.8); Immature Granulocytes % 1.2 %; Immature Granulocytes Absolute 0.09 #; Lymphocytes # 0.5 10*3/uL (1.4-4.0); Lymphocytes % 6.2 % (21.3-54.2); Mean Corpuscular HGB Conc 32.1 GM/DL (32-36); Mean Corpuscular Volume 84.3 FL (87-102); Mean Platelet Volume 9.9 FL (9.6-12.0); Monocytes % 3.6 % (1.7-12.7); NRBC # 0.38 10*3/uL; Neutrophils % 88.9 % (38.7-73.9); Platelet Count 157 T/CUMM (130-400); Red Blood Count 3.32 MC/CUMM (3.8-5.5); Red Cell Distribution Width 25.2 % (9.3-17.3); White Blood Count 7.8 T/CUMM (4-12)
[2018-11-12 05:55] LABS: Calcium 9.7 MG/DL (8.5-10.1)
[2018-11-12 07:17] LABS: INR 3.2
[2018-11-12 07:28] LABS: PT Patient Result 34.3 SECS
[2018-11-12] MEDS: CALCIUM ACETATE 667 MG CAPSULE PO SCH ×3 (09:52→16:17)
[2018-11-12] MEDS: CYPROHEPTADINE 4 MG TABLET PO SCH ×3 (09:52→16:17)
[2018-11-12] MEDS: INSULIN REGULAR 100 UNIT/ML SUBCUT SCH ×4 (09:54→21:16)
[2018-11-12] MEDS: PANTOPRAZOLE 40 MG TABLET PO SCH ×2 (15:16→21:16)
[2018-11-12] MEDS: CYANOCOBALAMIN 500 MCG TABLET PO SCH (15:16)
[2018-11-12] MEDS: predniSONE 20 MG TABLET PO SCH (15:17)
[2018-11-12] MEDS: FLUDROCORTISONE 0.1 MG TABLET PO SCH ×2 (15:18→21:16)
[2018-11-12] MEDS: MIDODRINE 5 MG TABLET PO SCH ×3 (15:18→21:16)
[2018-11-12] MEDS: ASCORBIC ACID 500 MG TABLET PO SCH (15:19)
[2018-11-12] MEDS: MULTIVITAMIN (CENTRUM) TABLET PO SCH (15:19)
[2018-11-12] MEDS: Fluticasone Furoate-Vilanterol [Breo Ellipta] INH SCH ×2 (15:21→21:16)
[2018-11-12] MEDS: POLYETHYLENE GLYCOL POWDER 17 GM PACK PO SCH (15:21)
[2018-11-12] MEDS: traMADol 50 MG TABLET PO PRN (18:38)
[2018-11-12] MEDS: ONDANSETRON 4 MG/2 ML VIAL IV PRN (18:38)
[2018-11-13 06:06] LABS: Basophils % 0.1 % (0.0-0.8); Hematocrit 25.6 VOL% (35.7-47.0); Hemoglobin 8.2 GM/DL (12.0-16.0); Immature Granulocytes % 1.3 %; Immature Granulocytes Absolute 0.13 #; Lymphocytes # 0.4 10*3/uL (1.4-4.0); Lymphocytes % 3.7 % (21.3-54.2); Mean Corpuscular Volume 85.3 FL (87-102); Mean Platelet Volume 10.1 FL (9.6-12.0); Monocytes % 4.5 % (1.7-12.7); NRBC # 0.86 10*3/uL; Neutrophils % 90.4 % (38.7-73.9); Platelet Count 183 T/CUMM (130-400); Red Cell Distribution Width 26.5 % (9.3-17.3); White Blood Count 10.1 T/CUMM (4-12)
[2018-11-13 06:22] LABS: Calcium 9.1 MG/DL (8.5-10.1); Osmolality,Calculated 283.5 MOS/KG (273-304)
[2018-11-13 06:30] LABS: Band Neutrophils 1 % (0-10); Lymphocytes 1 % (20-55); Nucleated Red Blood Cells 5 (0-5); Segmented Neutrophils 97 % (50-85); Total Cells Counted 100
[2018-11-13 06:32] LABS: Anisocytosis 1+; Hypochromasia 1+; Target Cells 2+
[2018-11-13 06:35] LABS: Platelet Estimate Adequate
[2018-11-13] MEDS: CALCIUM ACETATE 667 MG CAPSULE PO SCH ×4 (08:51→16:01)
[2018-11-13] MEDS: MULTIVITAMIN (CENTRUM) TABLET PO SCH (08:51)
[2018-11-13] MEDS: MIDODRINE 5 MG TABLET PO SCH ×3 (08:51→21:02)
[2018-11-13] MEDS: predniSONE 20 MG TABLET PO SCH (08:51)
[2018-11-13] MEDS: ASCORBIC ACID 500 MG TABLET PO SCH (08:51)
[2018-11-13] MEDS: CYPROHEPTADINE 4 MG TABLET PO SCH ×3 (08:51→16:58)
[2018-11-13] MEDS: PANTOPRAZOLE 40 MG TABLET PO SCH ×2 (08:52→21:02)
[2018-11-13] MEDS: PIPERACILLIN/TAZOBACTAM 3,375 MG in SODIUM CHLORIDE 0.9% 100 ML IV SCH (08:52)
[2018-11-13] MEDS: CYANOCOBALAMIN 500 MCG TABLET PO SCH (08:52)
[2018-11-13] MEDS: FLUDROCORTISONE 0.1 MG TABLET PO SCH ×2 (08:52→21:10)
[2018-11-13] MEDS: POLYETHYLENE GLYCOL POWDER 17 GM PACK PO SCH (08:52)
[2018-11-13] MEDS: INSULIN REGULAR 100 UNIT/ML SUBCUT SCH ×4 (08:53→21:10)
[2018-11-13] MEDS: Fluticasone Furoate-Vilanterol [Breo Ellipta] INH SCH ×2 (08:53→21:10)
[2018-11-13] MEDS: ONDANSETRON 4 MG/2 ML VIAL IV PRN (09:54)
[2018-11-13] MEDS: traMADol 50 MG TABLET PO PRN (21:02)
[2018-11-13] MEDS: AMOXICILLIN/CLAV 500 MG TABLET PO SCH (21:02)
[2018-11-14 05:24] LABS: Hematocrit 26.5 VOL% (35.7-47.0); Hemoglobin 8.5 GM/DL (12.0-16.0); Mean Corpuscular HGB Conc 32.1 GM/DL (32-36); Mean Corpuscular Volume 86.9 FL (87-102); Mean Platelet Volume 10.1 FL (9.6-12.0); Neutrophils % 90.9 % (38.7-73.9); Platelet Count 191 T/CUMM (130-400); Red Blood Count 3.05 MC/CUMM (3.8-5.5); White Blood Count 15.2 T/CUMM (4-12)
[2018-11-14 05:25] LABS: Basophils % 0.1 % (0.0-0.8); Immature Granulocytes % 1.3 %; Lymphocytes # 0.5 10*3/uL (1.4-4.0); Monocytes % 4.7 % (1.7-12.7); NRBC # 1.41 10*3/uL
[2018-11-14 05:47] LABS: Hypochromasia 1+; Lymphocytes 4 % (20-55); Macrocytosis Slight; Nucleated Red Blood Cells 3 (0-5); Platelet Estimate Adequate; Polychromasia Slight; Segmented Neutrophils 90 % (50-85); Target Cells Few; Total Cells Counted 100
[2018-11-14 05:48] LABS: Pappenheimer Bodies Few
[2018-11-14 05:50] LABS: Basophilic Stippling Slight; Howell-Jolly Bodies Few
[2018-11-14 05:53] LABS: Calcium 9.2 MG/DL (8.5-10.1); Osmolality,Calculated 279.7 MOS/KG (273-304)
[2018-11-14] MEDS: FLUDROCORTISONE 0.1 MG TABLET PO SCH ×2 (08:38→21:07)
[2018-11-14] MEDS: POLYETHYLENE GLYCOL POWDER 17 GM PACK PO SCH (08:38)
[2018-11-14] MEDS: AMOXICILLIN/CLAV 500 MG TABLET PO SCH ×2 (08:38→21:06)
[2018-11-14] MEDS: predniSONE 20 MG TABLET PO SCH (08:39)
[2018-11-14] MEDS: CYANOCOBALAMIN 500 MCG TABLET PO SCH (08:39)
[2018-11-14] MEDS: PANTOPRAZOLE 40 MG TABLET PO SCH ×2 (08:39→21:09)
[2018-11-14] MEDS: MULTIVITAMIN (CENTRUM) TABLET PO SCH (08:39)
[2018-11-14] MEDS: MIDODRINE 5 MG TABLET PO SCH ×3 (08:39→21:06)
[2018-11-14] MEDS: CYPROHEPTADINE 4 MG TABLET PO SCH ×3 (08:39→17:27)
[2018-11-14] MEDS: ASCORBIC ACID 500 MG TABLET PO SCH (08:39)
[2018-11-14] MEDS: Fluticasone Furoate-Vilanterol [Breo Ellipta] INH SCH ×2 (08:40→22:18)
[2018-11-14] MEDS: INSULIN REGULAR 100 UNIT/ML SUBCUT SCH ×4 (08:40→21:58)
[2018-11-14] MEDS: CALCIUM ACETATE 667 MG CAPSULE PO SCH ×3 (08:40→17:29)
[2018-11-14] MEDS: DESITIN 4OZ/NYSTATIN 15 GRAM MIXTURE PASTE TOP SCH ×2 (14:40→21:15)
[2018-11-14] MEDS: MIRTAZAPINE 15 MG TABLET PO SCH (21:08)
[2018-11-14] MEDS: WARFARIN 2 MG TABLET PO SCH (21:13)
[2018-11-15 04:53] LABS: Basophils % 0.1 % (0.0-0.8); Hematocrit 26.7 VOL% (35.7-47.0); Hemoglobin 8.5 GM/DL (12.0-16.0); Immature Granulocytes % 1.1 %; Lymphocytes # 0.3 10*3/uL (1.4-4.0); Lymphocytes % 1.6 % (21.3-54.2); Mean Corpuscular HGB Conc 31.8 GM/DL (32-36); Mean Corpuscular Volume 87.5 FL (87-102); Mean Platelet Volume 10.2 FL (9.6-12.0); Monocytes % 3.3 % (1.7-12.7); NRBC # 2.31 10*3/uL; Neutrophils % 93.9 % (38.7-73.9); Platelet Count 196 T/CUMM (130-400); Red Blood Count 3.05 MC/CUMM (3.8-5.5); Red Cell Distribution Width 28.2 % (9.3-17.3); White Blood Count 18.8 T/CUMM (4-12)
[2018-11-15 04:59] LABS: INR 1.6; PT Patient Result 17.5 SECS
[2018-11-15 05:28] LABS: Osmolality,Calculated 275.8 MOS/KG (273-304)
[2018-11-15 05:53] LABS: Anisocytosis 3+; Lymphocytes 1 % (20-55); Myelocytes 1 %; Nucleated Red Blood Cells 18 (0-5); Segmented Neutrophils 98 % (50-85); Total Cells Counted 100
[2018-11-15 05:54] LABS: Burr Cells 1+; Elliptocytes Few; Hypochromasia 2+; Macrocytosis 1+; Microcytosis 1+; Ovalocytes 2+; Platelet Estimate Adequate; Polychromasia 2+; Target Cells 2+
[2018-11-15] MEDS: AMOXICILLIN/CLAV 500 MG TABLET PO SCH ×3 (07:43→20:44)
[2018-11-15] MEDS: MIDODRINE 5 MG TABLET PO SCH ×4 (07:43→20:44)
[2018-11-15] MEDS: FLUDROCORTISONE 0.1 MG TABLET PO SCH ×3 (07:43→20:44)
[2018-11-15] MEDS: POLYETHYLENE GLYCOL POWDER 17 GM PACK PO SCH ×2 (07:43→08:09)
[2018-11-15] MEDS: ASCORBIC ACID 500 MG TABLET PO SCH ×2 (07:44→08:11)
[2018-11-15] MEDS: predniSONE 20 MG TABLET PO SCH ×2 (07:44→08:10)
[2018-11-15] MEDS: CYPROHEPTADINE 4 MG TABLET PO SCH ×3 (07:44→17:11)
[2018-11-15] MEDS: PANTOPRAZOLE 40 MG TABLET PO SCH ×3 (07:44→20:44)
[2018-11-15] MEDS: CYANOCOBALAMIN 500 MCG TABLET PO SCH ×2 (07:44→08:11)
[2018-11-15] MEDS: MULTIVITAMIN (CENTRUM) TABLET PO SCH ×2 (07:44→08:09)
[2018-11-15] MEDS: DESITIN 4OZ/NYSTATIN 15 GRAM MIXTURE PASTE TOP SCH ×3 (07:45→22:39)
[2018-11-15] MEDS: CALCIUM ACETATE 667 MG CAPSULE PO SCH ×3 (07:59→16:39)
[2018-11-15] MEDS: INSULIN REGULAR 100 UNIT/ML SUBCUT SCH ×4 (08:04→22:38)
[2018-11-15] MEDS: Fluticasone Furoate-Vilanterol [Breo Ellipta] INH SCH ×2 (08:09→22:37)
[2018-11-15] MEDS ORDERED: BISACODYL 5 MG TABLET PO PRN (16:44)
[2018-11-15] MEDS: WARFARIN 2 MG TABLET PO SCH (17:11)
[2018-11-15] MEDS: MIRTAZAPINE 15 MG TABLET PO SCH (20:44)
[2018-11-16] MEDS: traMADol 50 MG TABLET PO PRN (04:16)
[2018-11-16 06:09] LABS: Basophils % 0.1 % (0.0-0.8); Eosinophils % 0.1 % (0.00-10.9); Hematocrit 26.9 VOL% (35.7-47.0); Hemoglobin 8.4 GM/DL (12.0-16.0); Immature Granulocytes Absolute 0.16 #; Lymphocytes # 0.4 10*3/uL (1.4-4.0); Lymphocytes % 2.4 % (21.3-54.2); Mean Corpuscular HGB Conc 31.2 GM/DL (32-36); Mean Corpuscular Volume 88.5 FL (87-102); Mean Platelet Volume 9.6 FL (9.6-12.0); NRBC # 1.88 10*3/uL; Neutrophils % 92.4 % (38.7-73.9); Platelet Count 191 T/CUMM (130-400); Red Blood Count 3.04 MC/CUMM (3.8-5.5); Red Cell Distribution Width 29.4 % (9.3-17.3); White Blood Count 16.2 T/CUMM (4-12)
[2018-11-16 06:22] LABS: Calcium 8.7 MG/DL (8.5-10.1); Osmolality,Calculated 275.8 MOS/KG (273-304)
[2018-11-16 06:29] LABS: Lymphocytes 3 % (20-55); Nucleated Red Blood Cells 15 (0-5); Platelet Estimate Adequate; Segmented Neutrophils 92 % (50-85); Total Cells Counted 100
[2018-11-16 06:30] LABS: Basophilic Stippling Slight; Hypochromasia 1+; Macrocytosis Slight; Pappenheimer Bodies Few; Polychromasia Slight; Target Cells Few
[2018-11-16 06:42] LABS: INR 1.9
[2018-11-16] MEDS: INSULIN REGULAR 100 UNIT/ML SUBCUT SCH ×4 (08:23→21:51)
[2018-11-16] MEDS: FLUDROCORTISONE 0.1 MG TABLET PO SCH ×2 (08:25→20:27)
[2018-11-16] MEDS: MIDODRINE 5 MG TABLET PO SCH ×3 (08:25→20:26)
[2018-11-16] MEDS: AMOXICILLIN/CLAV 500 MG TABLET PO SCH ×2 (08:25→20:27)
[2018-11-16] MEDS: ASCORBIC ACID 500 MG TABLET PO SCH (08:25)
[2018-11-16] MEDS: MULTIVITAMIN (CENTRUM) TABLET PO SCH (08:26)
[2018-11-16] MEDS: predniSONE 20 MG TABLET PO SCH (08:26)
[2018-11-16] MEDS: CYPROHEPTADINE 4 MG TABLET PO SCH ×3 (08:26→16:07)
[2018-11-16] MEDS: CALCIUM ACETATE 667 MG CAPSULE PO SCH ×4 (08:26→18:37)
[2018-11-16] MEDS: PANTOPRAZOLE 40 MG TABLET PO SCH ×2 (08:26→20:27)
[2018-11-16] MEDS: CYANOCOBALAMIN 500 MCG TABLET PO SCH (08:26)
[2018-11-16] MEDS: POLYETHYLENE GLYCOL POWDER 17 GM PACK PO SCH (08:27)
[2018-11-16] MEDS: DESITIN 4OZ/NYSTATIN 15 GRAM MIXTURE PASTE TOP SCH ×2 (08:27→20:28)
[2018-11-16] MEDS ORDERED: BISACODYL 10 MG SUPP RECTAL PRN (09:31)
[2018-11-16] MEDS: Fluticasone Furoate-Vilanterol [Breo Ellipta] INH SCH ×2 (09:45→21:51)
[2018-11-16] MEDS ORDERED: predniSONE 10 MG TABLET PO SCH (16:53)
[2018-11-16] MEDS: WARFARIN 2 MG TABLET PO SCH (17:18)
[2018-11-16] MEDS: MIRTAZAPINE 15 MG TABLET PO SCH (20:27)
[2018-11-17 06:13] LABS: Basophils % 0.1 % (0.0-0.8); Hematocrit 25.6 VOL% (35.7-47.0); Hemoglobin 8.3 GM/DL (12.0-16.0); INR 1.6; Immature Granulocytes % 0.7 %; Immature Granulocytes Absolute 0.12 #; Lymphocytes # 0.2 10*3/uL (1.4-4.0); Lymphocytes % 1.2 % (21.3-54.2); Mean Corpuscular HGB Conc 32.4 GM/DL (32-36); Mean Corpuscular Volume 86.8 FL (87-102); Mean Platelet Volume 9.8 FL (9.6-12.0); Monocytes % 3.6 % (1.7-12.7); NRBC # 0.94 10*3/uL; Neutrophils % 94.4 % (38.7-73.9); PT Patient Result 16.8 SECS; Platelet Count 225 T/CUMM (130-400); Red Blood Count 2.95 MC/CUMM (3.8-5.5); Red Cell Distribution Width 29.6 % (9.3-17.3); White Blood Count 16.1 T/CUMM (4-12)
[2018-11-17 06:32] LABS: Lymphocytes 2 % (20-55); Nucleated Red Blood Cells 3 (0-5); Segmented Neutrophils 91 % (50-85); Total Cells Counted 100
[2018-11-17 06:33] LABS: Anisocytosis 1+; Hypochromasia 1+
[2018-11-17 06:34] LABS: Howell-Jolly Bodies Few; Platelet Estimate Adequate; Target Cells 2+
[2018-11-17 07:26] LABS: Calcium 8.7 MG/DL (8.5-10.1); Osmolality,Calculated 279.8 MOS/KG (273-304)
[2018-11-17 07:42] VITALS: BP 86/52
[2018-11-17] MEDS: MIDODRINE 5 MG TABLET PO SCH ×2 (08:17→15:22)
[2018-11-17] MEDS: FLUDROCORTISONE 0.1 MG TABLET PO SCH (15:21)
[2018-11-17] MEDS: PANTOPRAZOLE 40 MG TABLET PO SCH (15:22)
[2018-11-17] MEDS: AMOXICILLIN/CLAV 500 MG TABLET PO SCH (15:22)
[2018-11-17] MEDS: ASCORBIC ACID 500 MG TABLET PO SCH (15:22)
[2018-11-17] MEDS: MULTIVITAMIN (CENTRUM) TABLET PO SCH (15:22)
[2018-11-17] MEDS: CYANOCOBALAMIN 500 MCG TABLET PO SCH (15:22)
[2018-11-17] MEDS: INSULIN REGULAR 100 UNIT/ML SUBCUT SCH (17:54)
[2018-11-17] MEDS: CALCIUM ACETATE 667 MG CAPSULE PO SCH (17:55)
[2018-11-17] MEDS: CYPROHEPTADINE 4 MG TABLET PO SCH (17:55)
[2018-11-17] MEDS: Fluticasone Furoate-Vilanterol [Breo Ellipta] INH SCH (17:55)
[2018-11-17] MEDS: WARFARIN 2 MG TABLET PO SCH (17:56)
[2018-11-17] MEDS: DESITIN 4OZ/NYSTATIN 15 GRAM MIXTURE PASTE TOP SCH (17:56)
[2018-11-17] MEDS: POLYETHYLENE GLYCOL POWDER 17 GM PACK PO SCH (17:56)
== END 2018-11-17 17:00 | disposition home health service (06) | DRG 193 ==
LOC: EDUNIT# → EDBD → N.ED 19:08 → N.EDINP 21:48 → SUATTDRO 21:48 → N.CC 22:21 → N.2E 11-10 05:46
PROVIDERS: ADMIT Internal Medicine; ATTEND Family Medicine

== ENCOUNTER 2018-11-21 15:56 | Inpatient (IN) ==
[2018-11-21] MEDS ORDERED: GLUCAGON 1 MG VIAL IM PRN ×2 (18:33→18:38)
[2018-11-21] MEDS ORDERED: DEXTROSE 10% 250 ML BAG IV PRN (18:33)
[2018-11-21] MEDS ORDERED: DEXTROSE 50% 25 GM/50 ML VIAL IV PRN (18:38)
[2018-11-21] MEDS ORDERED: PIPERACILLIN/TAZOBACTAM 3,375 MG in SODIUM CHLORIDE 0.9% 100 ML IV SCH (19:00)
[2018-11-21] MEDS: ALBUTEROL 2.5 MG/3 ML NEB RESP TX SCH (20:00)
[2018-11-21] MEDS: PIPERACILLIN/TAZOBACTAM 2,250 MG in SODIUM CHLORIDE 0.9% 100 ML IV SCH (20:38)
[2018-11-21] MEDS ORDERED: INSULIN REGULAR 100 UNIT/ML SUBCUT SCH (21:00)
[2018-11-21] MEDS: INSULIN REGULAR 100 UNIT/ML SUBCUT SCH (21:59)
[2018-11-21] MEDS: FLUDROCORTISONE 0.1 MG TABLET PO SCH (22:14)
[2018-11-21] MEDS: PANTOPRAZOLE 40 MG TABLET PO SCH (22:14)
[2018-11-21] MEDS: MIRTAZAPINE 15 MG TABLET PO SCH (22:14)
[2018-11-22] MEDS: ALBUTEROL 2.5 MG/3 ML NEB RESP TX SCH ×4 (00:10→20:21)
[2018-11-22] MEDS: PIPERACILLIN/TAZOBACTAM 2,250 MG in SODIUM CHLORIDE 0.9% 100 ML IV SCH (03:54)
[2018-11-22 05:56] LABS: Basophils % 0.2 % (0.0-0.8); Eosinophils % 0.1 % (0.00-10.9); Hematocrit 25.2 VOL% (35.7-47.0); Hemoglobin 8.1 GM/DL (12.0-16.0); Immature Granulocytes % 1.2 %; Immature Granulocytes Absolute 0.24 #; Lymphocytes # 0.3 10*3/uL (1.4-4.0); Lymphocytes % 1.5 % (21.3-54.2); Mean Corpuscular HGB Conc 32.1 GM/DL (32-36); Mean Platelet Volume 9.4 FL (9.6-12.0); Monocytes % 2.2 % (1.7-12.7); NRBC # 0.08 10*3/uL; Neutrophils % 94.8 % (38.7-73.9); Platelet Count 214 T/CUMM (130-400); Red Blood Count 2.83 MC/CUMM (3.8-5.5); Red Cell Distribution Width 33.1 % (9.3-17.3); White Blood Count 19.5 T/CUMM (4-12)
[2018-11-22 06:08] LABS: INR 2.9
[2018-11-22 06:16] LABS: PT Patient Result 31.4 SECS
[2018-11-22 06:19] LABS: Nucleated Red Blood Cells 1 (0-5); Total Cells Counted 100
[2018-11-22 06:20] LABS: Anisocytosis 1+; Hypochromasia 2+; Lymphocytes 1 % (20-55); Macrocytosis 1+; Ovalocytes 1+; Platelet Estimate Normal; Segmented Neutrophils 96 % (50-85); Target Cells 2+
[2018-11-22 06:22] LABS: Albumin 1.4 G/DL (3.4-5.0); Bilirubin,Total 0.9 MG/DL (0.2-1.0); Osmolality,Calculated 281.5 MOS/KG (273-304); Total Protein 5.1 G/DL (6.4-8.3)
[2018-11-22] MEDS ORDERED: PANTOPRAZOLE 40 MG TABLET PO SCH (09:00)
[2018-11-22] MEDS: INSULIN REGULAR 100 UNIT/ML SUBCUT SCH ×4 (09:09→22:37)
[2018-11-22] MEDS: ASCORBIC ACID 500 MG TABLET PO SCH (09:15)
[2018-11-22] MEDS: CYPROHEPTADINE 4 MG TABLET PO SCH ×3 (09:15→15:50)
[2018-11-22] MEDS: CYANOCOBALAMIN 500 MCG TABLET PO SCH (09:15)
[2018-11-22] MEDS: MEGESTROL 40 MG TABLET PO SCH (09:15)
[2018-11-22] MEDS: DOCUSATE SODIUM 100 MG CAPSULE PO SCH ×3 (09:15→16:06)
[2018-11-22] MEDS: CALCIUM ACETATE 667 MG CAPSULE PO SCH ×3 (09:15→16:07)
[2018-11-22] MEDS: MIDODRINE 5 MG TABLET PO SCH ×3 (09:15→22:35)
[2018-11-22] MEDS: PANTOPRAZOLE 40 MG TABLET PO SCH ×2 (09:15→22:36)
[2018-11-22] MEDS: FLUDROCORTISONE 0.1 MG TABLET PO SCH ×2 (09:15→22:36)
[2018-11-22] MEDS: MULTIVITAMIN (CENTRUM) TABLET PO SCH (09:15)
[2018-11-22] MEDS: ACETAMINOPHEN 325 MG TABLET PO PRN ×2 (12:48→19:43)
[2018-11-22] MEDS: PIPERACILLIN/TAZOBACTAM 3,375 MG in SODIUM CHLORIDE 0.9% 100 ML IV SCH (15:50)
[2018-11-22] MEDS: WARFARIN 5 MG TABLET PO SCH (17:20)
[2018-11-22] MEDS ORDERED: HEPARIN 10,000 UNIT/10 ML VIAL IV PRN (18:41)
[2018-11-22] MEDS: ONDANSETRON 4 MG/2 ML VIAL IV PRN (19:41)
[2018-11-22] MEDS ORDERED: INSULIN GLARGINE 100 UNIT/ML SUBCUT SCH (21:00)
[2018-11-22] MEDS: LACTULOSE 20 GM/30 ML UDCUP PO SCH (22:35)
[2018-11-22] MEDS: MIRTAZAPINE 15 MG TABLET PO SCH (22:36)
[2018-11-22] MEDS: DESITIN 4OZ/NYSTATIN 15 GRAM MIXTURE PASTE TOP SCH (22:42)
[2018-11-23] MEDS: ALBUTEROL 2.5 MG/3 ML NEB RESP TX SCH ×4 (00:15→19:46)
[2018-11-23] MEDS: ACETAMINOPHEN 325 MG TABLET PO PRN ×2 (01:25→08:59)
[2018-11-23] MEDS: PIPERACILLIN/TAZOBACTAM 3,375 MG in SODIUM CHLORIDE 0.9% 100 ML IV SCH ×2 (04:22→17:45)
[2018-11-23 07:56] LABS: Basophils % 0.2 % (0.0-0.8); Eosinophils # 0.2 10*3/uL (0.0-0.87); Eosinophils % 1.5 % (0.00-10.9); Hematocrit 24.7 VOL% (35.7-47.0); Hemoglobin 7.9 GM/DL (12.0-16.0); Immature Granulocytes % 0.9 %; Immature Granulocytes Absolute 0.13 #; Lymphocytes # 0.4 10*3/uL (1.4-4.0); Lymphocytes % 2.9 % (21.3-54.2); Mean Corpuscular Volume 90.1 FL (87-102); Monocytes % 2.7 % (1.7-12.7); NRBC # 0.09 10*3/uL; Neutrophils % 91.8 % (38.7-73.9); Platelet Count 194 T/CUMM (130-400); Red Blood Count 2.74 MC/CUMM (3.8-5.5); Red Cell Distribution Width 34.4 % (9.3-17.3); White Blood Count 14.3 T/CUMM (4-12)
[2018-11-23 08:15] LABS: Calcium 8.2 MG/DL (8.5-10.1); Osmolality,Calculated 279.3 MOS/KG (273-304)
[2018-11-23 08:21] LABS: Eosinophils 3 % (0-10); Lymphocytes 3 % (20-55); Nucleated Red Blood Cells 1 (0-5); Platelet Estimate Adequate; Segmented Neutrophils 93 % (50-85); Total Cells Counted 100
[2018-11-23 08:22] LABS: Howell-Jolly Bodies Few; Hypochromasia Slight; Pappenheimer Bodies Few; Target Cells Few
[2018-11-23 08:23] LABS: Macrocytosis Slight
[2018-11-23] MEDS: POLYETHYLENE GLYCOL POWDER 17 GM PACK PO SCH (08:56)
[2018-11-23] MEDS: DOCUSATE SODIUM 100 MG CAPSULE PO SCH ×3 (08:57→17:44)
[2018-11-23] MEDS: CALCIUM ACETATE 667 MG CAPSULE PO SCH ×3 (08:57→17:44)
[2018-11-23] MEDS: FLUDROCORTISONE 0.1 MG TABLET PO SCH ×2 (08:58→21:52)
[2018-11-23] MEDS: MEGESTROL 40 MG TABLET PO SCH (08:58)
[2018-11-23] MEDS: PANTOPRAZOLE 40 MG TABLET PO SCH ×2 (08:58→21:52)
[2018-11-23] MEDS: LACTULOSE 20 GM/30 ML UDCUP PO SCH (08:58)
[2018-11-23] MEDS: ASCORBIC ACID 500 MG TABLET PO SCH (08:58)
[2018-11-23] MEDS: CYANOCOBALAMIN 500 MCG TABLET PO SCH (08:58)
[2018-11-23] MEDS: predniSONE 20 MG TABLET PO SCH (08:58)
[2018-11-23] MEDS: CYPROHEPTADINE 4 MG TABLET PO SCH ×3 (08:58→17:44)
[2018-11-23] MEDS: MIDODRINE 5 MG TABLET PO SCH ×3 (08:58→21:54)
[2018-11-23] MEDS: MULTIVITAMIN (CENTRUM) TABLET PO SCH (08:59)
[2018-11-23] MEDS: DESITIN 4OZ/NYSTATIN 15 GRAM MIXTURE PASTE TOP SCH ×2 (09:10→22:25)
[2018-11-23] MEDS: INSULIN REGULAR 100 UNIT/ML SUBCUT SCH ×4 (09:10→22:38)
[2018-11-23] MEDS ORDERED: SODIUM CHLORIDE 0.9% 1,000 ML IV PRN (14:21)
[2018-11-23] MEDS: WARFARIN 5 MG TABLET PO SCH (17:44)
[2018-11-23] MEDS: MIRTAZAPINE 15 MG TABLET PO SCH (21:55)
[2018-11-24] MEDS: ALBUTEROL 2.5 MG/3 ML NEB RESP TX SCH ×4 (01:13→19:43)
[2018-11-24] MEDS: PIPERACILLIN/TAZOBACTAM 3,375 MG in SODIUM CHLORIDE 0.9% 100 ML IV SCH ×2 (03:23→17:13)
[2018-11-24 06:07] LABS: Basophils % 0.2 % (0.0-0.8); Eosinophils % 0.2 % (0.00-10.9); Hematocrit 23.3 VOL% (35.7-47.0); Hemoglobin 7.4 GM/DL (12.0-16.0); Immature Granulocytes % 1.2 %; Immature Granulocytes Absolute 0.15 #; Lymphocytes # 0.3 10*3/uL (1.4-4.0); Lymphocytes % 2.5 % (21.3-54.2); Mean Corpuscular HGB Conc 31.8 GM/DL (32-36); Mean Corpuscular Volume 88.9 FL (87-102); Mean Platelet Volume 9.9 FL (9.6-12.0); Monocytes % 3.1 % (1.7-12.7); NRBC # 0.05 10*3/uL; Neutrophils % 92.8 % (38.7-73.9); Platelet Count 211 T/CUMM (130-400); Red Blood Count 2.62 MC/CUMM (3.8-5.5); Red Cell Distribution Width 33.9 % (9.3-17.3)
[2018-11-24 06:22] LABS: PT Patient Result 68.5 SECS
[2018-11-24 06:24] LABS: INR 6.4
[2018-11-24 06:37] LABS: Calcium 8.3 MG/DL (8.5-10.1); Osmolality,Calculated 278.5 MOS/KG (273-304)
[2018-11-24 06:41] LABS: Lymphocytes 3 % (20-55); Segmented Neutrophils 94 % (50-85); Total Cells Counted 100
[2018-11-24 06:42] LABS: Anisocytosis 1+; Hypochromasia 1+; Macrocytosis 1+; Pappenheimer Bodies Few; Target Cells Few
[2018-11-24 06:43] LABS: Platelet Estimate Normal; Polychromasia Slight
[2018-11-24 06:47] LABS: Free T4 (Free Thyroxine) 0.69 NG/DL (0.76-1.46); Thyroid Stimulating Hormone 5.36 uIU/ml (0.358-3.74)
[2018-11-24] MEDS: MULTIVITAMIN (CENTRUM) TABLET PO SCH (08:25)
[2018-11-24] MEDS: CALCIUM ACETATE 667 MG CAPSULE PO SCH ×3 (08:25→17:12)
[2018-11-24] MEDS: POLYETHYLENE GLYCOL POWDER 17 GM PACK PO SCH (08:25)
[2018-11-24] MEDS: CYPROHEPTADINE 4 MG TABLET PO SCH ×3 (08:25→17:13)
[2018-11-24] MEDS: ASCORBIC ACID 500 MG TABLET PO SCH (08:26)
[2018-11-24] MEDS: MIDODRINE 5 MG TABLET PO SCH ×3 (08:26→21:14)
[2018-11-24] MEDS: CYANOCOBALAMIN 500 MCG TABLET PO SCH (08:26)
[2018-11-24] MEDS: DOCUSATE SODIUM 100 MG CAPSULE PO SCH ×3 (08:26→17:32)
[2018-11-24] MEDS: PANTOPRAZOLE 40 MG TABLET PO SCH ×2 (08:26→21:15)
[2018-11-24] MEDS: predniSONE 20 MG TABLET PO SCH (08:26)
[2018-11-24] MEDS: LEVOTHYROXINE 50 MCG TABLET PO SCH (08:29)
[2018-11-24] MEDS: INSULIN REGULAR 100 UNIT/ML SUBCUT SCH ×4 (09:03→21:16)
[2018-11-24] MEDS: DESITIN 4OZ/NYSTATIN 15 GRAM MIXTURE PASTE TOP SCH ×2 (12:40→23:23)
[2018-11-24] MEDS: MEGESTROL 40 MG TABLET PO SCH (12:41)
[2018-11-24] MEDS: FLUDROCORTISONE 0.1 MG TABLET PO SCH ×2 (12:41→21:14)
[2018-11-24 19:14] LABS: Hematocrit 28.8 VOL% (35.7-47.0); Hemoglobin 9.2 GM/DL (12.0-16.0)
[2018-11-24] MEDS: MIRTAZAPINE 15 MG TABLET PO SCH (21:15)
[2018-11-24] MEDS: ACETAMINOPHEN 325 MG TABLET PO PRN (21:15)
[2018-11-25] MEDS: ALBUTEROL 2.5 MG/3 ML NEB RESP TX SCH ×4 (00:16→19:40)
[2018-11-25] MEDS: ACETAMINOPHEN 325 MG TABLET PO PRN ×4 (03:46→21:48)
[2018-11-25] MEDS: PIPERACILLIN/TAZOBACTAM 3,375 MG in SODIUM CHLORIDE 0.9% 100 ML IV SCH ×2 (03:47→16:21)
[2018-11-25 05:25] LABS: Basophils % 0.2 % (0.0-0.8); Eosinophils # 0.1 10*3/uL (0.0-0.87); Eosinophils % 0.4 % (0.00-10.9); Hematocrit 28.9 VOL% (35.7-47.0); Hemoglobin 9.2 GM/DL (12.0-16.0); Immature Granulocytes % 1.3 %; Immature Granulocytes Absolute 0.17 #; Lymphocytes # 0.4 10*3/uL (1.4-4.0); Lymphocytes % 2.7 % (21.3-54.2); Mean Corpuscular HGB Conc 31.8 GM/DL (32-36); Mean Corpuscular Volume 91.2 FL (87-102); Mean Platelet Volume 9.5 FL (9.6-12.0); Monocytes % 3.3 % (1.7-12.7); NRBC # 0.03 10*3/uL; Neutrophils % 92.1 % (38.7-73.9); Platelet Count 191 T/CUMM (130-400); Red Blood Count 3.17 MC/CUMM (3.8-5.5); Red Cell Distribution Width 31.6 % (9.3-17.3); White Blood Count 13.1 T/CUMM (4-12)
[2018-11-25 05:42] LABS: Calcium 8.1 MG/DL (8.5-10.1); Osmolality,Calculated 287.1 MOS/KG (273-304)
[2018-11-25 05:51] LABS: PT Patient Result 69.6 SECS
[2018-11-25 05:53] LABS: INR 6.5
[2018-11-25 06:02] LABS: Band Neutrophils 5 % (0-10); Lymphocytes 2 % (20-55); Platelet Estimate Normal; Segmented Neutrophils 91 % (50-85); Total Cells Counted 100
[2018-11-25] MEDS: CALCIUM ACETATE 667 MG CAPSULE PO SCH ×3 (09:29→18:51)
[2018-11-25] MEDS: INSULIN REGULAR 100 UNIT/ML SUBCUT SCH ×4 (09:29→21:37)
[2018-11-25] MEDS: CYANOCOBALAMIN 500 MCG TABLET PO SCH (09:29)
[2018-11-25] MEDS: MULTIVITAMIN (CENTRUM) TABLET PO SCH (09:29)
[2018-11-25] MEDS: ASCORBIC ACID 500 MG TABLET PO SCH (09:30)
[2018-11-25] MEDS: POLYETHYLENE GLYCOL POWDER 17 GM PACK PO SCH (09:30)
[2018-11-25] MEDS: FLUDROCORTISONE 0.1 MG TABLET PO SCH ×2 (09:30→21:39)
[2018-11-25] MEDS: CYPROHEPTADINE 4 MG TABLET PO SCH ×3 (09:30→17:13)
[2018-11-25] MEDS: predniSONE 20 MG TABLET PO SCH (09:30)
[2018-11-25] MEDS: MEGESTROL 40 MG TABLET PO SCH (09:30)
[2018-11-25] MEDS: MIDODRINE 5 MG TABLET PO SCH (09:30)
[2018-11-25] MEDS: PANTOPRAZOLE 40 MG TABLET PO SCH ×2 (09:30→21:39)
[2018-11-25] MEDS: LEVOTHYROXINE 50 MCG TABLET PO SCH (09:31)
[2018-11-25] MEDS: DOCUSATE SODIUM 100 MG CAPSULE PO SCH ×3 (09:32→17:13)
[2018-11-25] MEDS: DESITIN 4OZ/NYSTATIN 15 GRAM MIXTURE PASTE TOP SCH ×2 (10:23→21:46)
[2018-11-25] MEDS ORDERED: PHYTONADIONE INJ 2.5 MG in SODIUM CHLORIDE 0.9% 25 ML IV ONE (14:46)
[2018-11-25] MEDS: MIRTAZAPINE 15 MG TABLET PO SCH (21:39)
[2018-11-26] MEDS: ALBUTEROL 2.5 MG/3 ML NEB RESP TX SCH ×4 (01:10→19:23)
[2018-11-26] MEDS: PIPERACILLIN/TAZOBACTAM 3,375 MG in SODIUM CHLORIDE 0.9% 100 ML IV SCH ×2 (04:17→17:51)
[2018-11-26] MEDS: LEVOTHYROXINE 50 MCG TABLET PO SCH (06:26)
[2018-11-26 07:19] LABS: PT Patient Result 57.5 SECS
[2018-11-26 07:22] LABS: INR 5.4
[2018-11-26] MEDS: INSULIN REGULAR 100 UNIT/ML SUBCUT SCH ×4 (10:01→20:01)
[2018-11-26] MEDS: CYPROHEPTADINE 4 MG TABLET PO SCH ×3 (10:02→18:59)
[2018-11-26] MEDS: CALCIUM ACETATE 667 MG CAPSULE PO SCH ×3 (10:02→19:00)
[2018-11-26] MEDS: DOCUSATE SODIUM 100 MG CAPSULE PO SCH ×3 (10:02→19:00)
[2018-11-26] MEDS: ONDANSETRON 4 MG/2 ML VIAL IV PRN (13:25)
[2018-11-26] MEDS: MULTIVITAMIN (CENTRUM) TABLET PO SCH (14:18)
[2018-11-26] MEDS: MEGESTROL 40 MG TABLET PO SCH (14:18)
[2018-11-26] MEDS: CYANOCOBALAMIN 500 MCG TABLET PO SCH (14:19)
[2018-11-26] MEDS: POLYETHYLENE GLYCOL POWDER 17 GM PACK PO SCH (14:19)
[2018-11-26] MEDS: ASCORBIC ACID 500 MG TABLET PO SCH (14:19)
[2018-11-26] MEDS: PANTOPRAZOLE 40 MG TABLET PO SCH ×2 (14:19→21:14)
[2018-11-26] MEDS: DESITIN 4OZ/NYSTATIN 15 GRAM MIXTURE PASTE TOP SCH ×2 (14:22→21:15)
[2018-11-26] MEDS: FLUDROCORTISONE 0.1 MG TABLET PO SCH ×2 (14:36→21:11)
[2018-11-26] MEDS: predniSONE 20 MG TABLET PO SCH (14:36)
[2018-11-26] MEDS ORDERED: SODIUM CHLORIDE 0.9% 250 ML IV ONE (15:41)
[2018-11-26] MEDS ORDERED: MIDODRINE 5 MG TABLET PO ONE (15:43)
[2018-11-26] MEDS: MIDODRINE 5 MG TABLET PO SCH (21:11)
[2018-11-26] MEDS: MIRTAZAPINE 15 MG TABLET PO SCH (21:12)
[2018-11-26] MEDS: ACETAMINOPHEN 325 MG TABLET PO PRN (21:13)
[2018-11-26] MEDS: INSULIN GLARGINE 100 UNIT/ML SUBCUT SCH (21:49)
[2018-11-27] MEDS: ALBUTEROL 2.5 MG/3 ML NEB RESP TX SCH ×4 (00:06→19:52)
[2018-11-27] MEDS: PIPERACILLIN/TAZOBACTAM 3,375 MG in SODIUM CHLORIDE 0.9% 100 ML IV SCH ×2 (03:16→16:19)
[2018-11-27] MEDS: LEVOTHYROXINE 50 MCG TABLET PO SCH (05:36)
[2018-11-27 06:24] LABS: Basophils % 0.1 % (0.0-0.8); Eosinophils % 0.3 % (0.00-10.9); Hematocrit 28.5 VOL% (35.7-47.0); Hemoglobin 9.2 GM/DL (12.0-16.0); Immature Granulocytes % 0.9 %; Immature Granulocytes Absolute 0.11 #; Lymphocytes # 0.3 10*3/uL (1.4-4.0); Lymphocytes % 2.6 % (21.3-54.2); Mean Corpuscular HGB Conc 32.3 GM/DL (32-36); Mean Corpuscular Volume 92.2 FL (87-102); Mean Platelet Volume 10.3 FL (9.6-12.0); Monocytes % 3.2 % (1.7-12.7); NRBC # 0.03 10*3/uL; Neutrophils % 92.9 % (38.7-73.9); Platelet Count 195 T/CUMM (130-400); Red Blood Count 3.09 MC/CUMM (3.8-5.5); Red Cell Distribution Width 32.2 % (9.3-17.3); White Blood Count 12.2 T/CUMM (4-12)
[2018-11-27 06:27] LABS: INR 2.8
[2018-11-27 06:39] LABS: Calcium 8.2 MG/DL (8.5-10.1); Osmolality,Calculated 286.6 MOS/KG (273-304)
[2018-11-27 06:41] LABS: PT Patient Result 30.5 SECS
[2018-11-27] MEDS: INSULIN REGULAR 100 UNIT/ML SUBCUT SCH ×4 (07:37→21:02)
[2018-11-27 08:14] LABS: Hypochromasia 1+
[2018-11-27 08:21] LABS: Target Cells 1+
[2018-11-27 08:22] LABS: Anisocytosis 1+; Polychromasia Slight
[2018-11-27 08:23] LABS: Microcytosis Slight; Platelet Estimate Adequate; Schistocytes Slight; Stomatocytes Slight
[2018-11-27] MEDS: DOCUSATE SODIUM 100 MG CAPSULE PO SCH ×3 (09:08→16:28)
[2018-11-27] MEDS: POLYETHYLENE GLYCOL POWDER 17 GM PACK PO SCH (09:08)
[2018-11-27] MEDS: CALCIUM ACETATE 667 MG CAPSULE PO SCH ×4 (09:09→16:20)
[2018-11-27] MEDS: FLUDROCORTISONE 0.1 MG TABLET PO SCH ×2 (09:09→21:01)
[2018-11-27] MEDS: MIDODRINE 5 MG TABLET PO SCH ×3 (09:10→21:01)
[2018-11-27] MEDS: predniSONE 20 MG TABLET PO SCH (09:10)
[2018-11-27] MEDS: CYPROHEPTADINE 4 MG TABLET PO SCH ×3 (09:11→16:20)
[2018-11-27] MEDS: ASCORBIC ACID 500 MG TABLET PO SCH (09:11)
[2018-11-27] MEDS: CYANOCOBALAMIN 500 MCG TABLET PO SCH (09:11)
[2018-11-27] MEDS: MULTIVITAMIN (CENTRUM) TABLET PO SCH ×2 (09:11→09:21)
[2018-11-27] MEDS: MEGESTROL 40 MG TABLET PO SCH (09:11)
[2018-11-27] MEDS: DESITIN 4OZ/NYSTATIN 15 GRAM MIXTURE PASTE TOP SCH ×2 (09:11→21:02)
[2018-11-27] MEDS: PANTOPRAZOLE 40 MG TABLET PO SCH ×2 (09:11→21:01)
[2018-11-27] MEDS: ONDANSETRON 4 MG/2 ML VIAL IV PRN (09:18)
[2018-11-27] MEDS: ACETAMINOPHEN 325 MG TABLET PO PRN (14:44)
[2018-11-27] MEDS ORDERED: APIXABAN 2.5 MG TABLET PO SCH (21:00)
[2018-11-27] MEDS: MIRTAZAPINE 15 MG TABLET PO SCH (21:01)
[2018-11-27] MEDS: APIXABAN 5 MG TABLET PO SCH (21:01)
[2018-11-27] MEDS: INSULIN GLARGINE 100 UNIT/ML SUBCUT SCH (21:02)
[2018-11-28] MEDS: ALBUTEROL 2.5 MG/3 ML NEB RESP TX SCH ×4 (00:46→20:10)
[2018-11-28] MEDS ORDERED: SODIUM CHLORIDE 0.9% 200 ML IV ONE (04:36)
[2018-11-28] MEDS: PIPERACILLIN/TAZOBACTAM 3,375 MG in SODIUM CHLORIDE 0.9% 100 ML IV SCH ×2 (05:15→17:51)
[2018-11-28] MEDS: LEVOTHYROXINE 50 MCG TABLET PO SCH (06:07)
[2018-11-28] MEDS: INSULIN REGULAR 100 UNIT/ML SUBCUT SCH ×4 (07:37→20:36)
[2018-11-28] MEDS: CALCIUM ACETATE 667 MG CAPSULE PO SCH ×3 (08:24→17:52)
[2018-11-28] MEDS: CYANOCOBALAMIN 500 MCG TABLET PO SCH (08:25)
[2018-11-28] MEDS: CYPROHEPTADINE 4 MG TABLET PO SCH ×3 (08:25→17:52)
[2018-11-28] MEDS: MULTIVITAMIN (CENTRUM) TABLET PO SCH (08:25)
[2018-11-28] MEDS: MIDODRINE 5 MG TABLET PO SCH ×3 (08:25→20:35)
[2018-11-28] MEDS: MEGESTROL 40 MG TABLET PO SCH (08:25)
[2018-11-28] MEDS: FLUDROCORTISONE 0.1 MG TABLET PO SCH ×2 (08:25→20:35)
[2018-11-28] MEDS: DOCUSATE SODIUM 100 MG CAPSULE PO SCH ×3 (08:25→17:53)
[2018-11-28] MEDS: APIXABAN 5 MG TABLET PO SCH ×2 (08:25→20:35)
[2018-11-28] MEDS: PANTOPRAZOLE 40 MG TABLET PO SCH ×2 (08:25→20:35)
[2018-11-28] MEDS: POLYETHYLENE GLYCOL POWDER 17 GM PACK PO SCH (08:26)
[2018-11-28] MEDS: ASCORBIC ACID 500 MG TABLET PO SCH (08:26)
[2018-11-28] MEDS: DESITIN 4OZ/NYSTATIN 15 GRAM MIXTURE PASTE TOP SCH ×2 (08:26→23:10)
[2018-11-28] MEDS: predniSONE 20 MG TABLET PO SCH (08:26)
[2018-11-28] MEDS: ACETAMINOPHEN 325 MG TABLET PO PRN (11:08)
[2018-11-28] MEDS: MIRTAZAPINE 15 MG TABLET PO SCH (20:35)
[2018-11-28] MEDS: INSULIN GLARGINE 100 UNIT/ML SUBCUT SCH (20:36)
[2018-11-29] MEDS: ALBUTEROL 2.5 MG/3 ML NEB RESP TX SCH ×4 (00:38→18:54)
[2018-11-29] MEDS: PIPERACILLIN/TAZOBACTAM 3,375 MG in SODIUM CHLORIDE 0.9% 100 ML IV SCH ×2 (04:07→17:17)
[2018-11-29] MEDS: LEVOTHYROXINE 50 MCG TABLET PO SCH (06:30)
[2018-11-29 08:41] LABS: Basophils % 0.2 % (0.0-0.8); Eosinophils # 0.5 10*3/uL (0.0-0.87); Eosinophils % 5.2 % (0.00-10.9); Hematocrit 30.6 VOL% (35.7-47.0); Hemoglobin 9.9 GM/DL (12.0-16.0); Immature Granulocytes % 0.6 %; Immature Granulocytes Absolute 0.06 #; Lymphocytes # 0.8 10*3/uL (1.4-4.0); Lymphocytes % 7.6 % (21.3-54.2); Mean Corpuscular HGB Conc 32.4 GM/DL (32-36); Mean Corpuscular Volume 92.4 FL (87-102); Mean Platelet Volume 9.8 FL (9.6-12.0); Monocytes % 3.1 % (1.7-12.7); NRBC # 0.03 10*3/uL; Neutrophils % 83.3 % (38.7-73.9); Platelet Count 226 T/CUMM (130-400); Red Blood Count 3.31 MC/CUMM (3.8-5.5); White Blood Count 10.2 T/CUMM (4-12)
[2018-11-29] MEDS: FLUDROCORTISONE 0.1 MG TABLET PO SCH ×2 (08:41→20:41)
[2018-11-29] MEDS: APIXABAN 5 MG TABLET PO SCH ×2 (08:41→20:42)
[2018-11-29] MEDS: INSULIN REGULAR 100 UNIT/ML SUBCUT SCH ×2 (08:41→12:17)
[2018-11-29] MEDS: DOCUSATE SODIUM 100 MG CAPSULE PO SCH ×3 (08:41→17:17)
[2018-11-29] MEDS: CYPROHEPTADINE 4 MG TABLET PO SCH ×3 (08:41→17:17)
[2018-11-29] MEDS: CALCIUM ACETATE 667 MG CAPSULE PO SCH ×3 (08:41→17:17)
[2018-11-29] MEDS: MIDODRINE 5 MG TABLET PO SCH ×3 (08:42→20:41)
[2018-11-29] MEDS: PANTOPRAZOLE 40 MG TABLET PO SCH ×2 (08:42→20:42)
[2018-11-29] MEDS: DESITIN 4OZ/NYSTATIN 15 GRAM MIXTURE PASTE TOP SCH ×2 (08:42→20:48)
[2018-11-29 09:04] LABS: Howell-Jolly Bodies Few; Platelet Estimate Adequate; Target Cells Few
[2018-11-29 09:05] LABS: Hypochromasia 1+; Microcytosis Slight
[2018-11-29 09:09] LABS: Albumin 1.4 G/DL (3.4-5.0); Bilirubin,Total 0.9 MG/DL (0.2-1.0); Calcium 8.8 MG/DL (8.5-10.1); Total Protein 5.2 G/DL (6.4-8.3)
[2018-11-29] MEDS: POLYETHYLENE GLYCOL POWDER 17 GM PACK PO SCH (11:50)
[2018-11-29] MEDS: MEGESTROL 40 MG TABLET PO SCH (13:24)
[2018-11-29] MEDS: MULTIVITAMIN (CENTRUM) TABLET PO SCH (13:24)
[2018-11-29] MEDS: ASCORBIC ACID 500 MG TABLET PO SCH (13:24)
[2018-11-29] MEDS: predniSONE 20 MG TABLET PO SCH (13:24)
[2018-11-29] MEDS: CYANOCOBALAMIN 500 MCG TABLET PO SCH (13:24)
[2018-11-29 13:48] LABS: INR 2.8
[2018-11-29 14:05] LABS: PT Patient Result 30.1 SECS; Partial Thromboplastin Time 46.7 SECS (0-40)
[2018-11-29] MEDS: MIRTAZAPINE 15 MG TABLET PO SCH (20:41)
[2018-11-29] MEDS: ACETAMINOPHEN 325 MG TABLET PO PRN (20:42)
[2018-11-30] MEDS: ALBUTEROL 2.5 MG/3 ML NEB RESP TX SCH ×2 (00:55→08:03)
[2018-11-30] MEDS: PIPERACILLIN/TAZOBACTAM 3,375 MG in SODIUM CHLORIDE 0.9% 100 ML IV SCH ×2 (04:11→16:09)
[2018-11-30 05:03] LABS: Basophils % 0.1 % (0.0-0.8); Eosinophils % 0.1 % (0.00-10.9); Hematocrit 29.9 VOL% (35.7-47.0); Hemoglobin 9.8 GM/DL (12.0-16.0); Immature Granulocytes % 0.6 %; Immature Granulocytes Absolute 0.06 #; Lymphocytes # 0.2 10*3/uL (1.4-4.0); Lymphocytes % 2.2 % (21.3-54.2); Mean Corpuscular HGB Conc 32.8 GM/DL (32-36); Mean Corpuscular Volume 90.9 FL (87-102); Mean Platelet Volume 10.1 FL (9.6-12.0); Monocytes % 2.4 % (1.7-12.7); NRBC # 0.02 10*3/uL; Neutrophils % 94.6 % (38.7-73.9); Platelet Count 222 T/CUMM (130-400); Red Blood Count 3.29 MC/CUMM (3.8-5.5); Red Cell Distribution Width 31.5 % (9.3-17.3); White Blood Count 10.7 T/CUMM (4-12)
[2018-11-30 05:31] LABS: Albumin 1.3 G/DL (3.4-5.0); Bilirubin,Total 0.9 MG/DL (0.2-1.0); Calcium 8.1 MG/DL (8.5-10.1); Osmolality,Calculated 282.5 MOS/KG (273-304); Total Protein 5.2 G/DL (6.4-8.3)
[2018-11-30 05:42] LABS: Band Neutrophils 1 % (0-10); Hypochromasia 1+; Lymphocytes 1 % (20-55); Platelet Estimate Adequate; Segmented Neutrophils 97 % (50-85); Target Cells Few; Total Cells Counted 100
[2018-11-30 05:43] LABS: Microcytosis Slight
[2018-11-30] MEDS: LEVOTHYROXINE 50 MCG TABLET PO SCH (06:12)
[2018-11-30] MEDS: CYPROHEPTADINE 4 MG TABLET PO SCH ×3 (06:30→16:09)
[2018-11-30 08:03] LABS: INR 2.1
[2018-11-30 08:08] LABS: PT Patient Result 22.7 SECS
[2018-11-30] MEDS: MULTIVITAMIN (CENTRUM) TABLET PO SCH (09:05)
[2018-11-30] MEDS: POLYETHYLENE GLYCOL POWDER 17 GM PACK PO SCH (09:05)
[2018-11-30] MEDS: CYANOCOBALAMIN 500 MCG TABLET PO SCH (09:05)
[2018-11-30] MEDS: MEGESTROL 40 MG TABLET PO SCH (09:05)
[2018-11-30] MEDS: PANTOPRAZOLE 40 MG TABLET PO SCH (09:05)
[2018-11-30] MEDS: CALCIUM ACETATE 667 MG CAPSULE PO SCH ×3 (09:05→16:09)
[2018-11-30] MEDS: predniSONE 20 MG TABLET PO SCH (09:05)
[2018-11-30] MEDS: DOCUSATE SODIUM 100 MG CAPSULE PO SCH ×3 (09:05→16:09)
[2018-11-30] MEDS: DESITIN 4OZ/NYSTATIN 15 GRAM MIXTURE PASTE TOP SCH (09:06)
[2018-11-30] MEDS: FLUDROCORTISONE 0.1 MG TABLET PO SCH (09:06)
[2018-11-30] MEDS: APIXABAN 5 MG TABLET PO SCH (09:06)
[2018-11-30] MEDS: ASCORBIC ACID 500 MG TABLET PO SCH (09:06)
[2018-11-30] MEDS: MIDODRINE 5 MG TABLET PO SCH ×2 (09:08→16:09)
[2018-11-30 11:44] VITALS: BP 97/53
== END 2018-11-30 16:30 | disposition home health service (06) | DRG 193 ==
LOC: N.5E → OBSVTOIN 17:59 → SUATTDRO 17:59
PROVIDERS: ADMIT Internal Medicine; ATTEND Internal Medicine

== ENCOUNTER 2018-12-05 21:57 | Inpatient (IN) ==
[2018-12-05] MEDS ORDERED: KETOROLAC 30 MG/1 ML VIAL IV STA (22:39)
[2018-12-05 23:25] LABS: Basophils % 0.3 % (0.0-0.8); Eosinophils % 0.2 % (0.00-10.9); Hematocrit 32.6 VOL% (35.7-47.0); Hemoglobin 10.7 GM/DL (12.0-16.0); Immature Granulocytes % 0.8 %; Immature Granulocytes Absolute 0.05 #; Lymphocytes # 0.5 10*3/uL (1.4-4.0); Lymphocytes % 7.4 % (21.3-54.2); Mean Corpuscular HGB Conc 32.8 GM/DL (32-36); Mean Corpuscular Volume 90.6 FL (87-102); Mean Platelet Volume 9.8 FL (9.6-12.0); Monocytes % 3.5 % (1.7-12.7); NRBC # 0.05 10*3/uL; Neutrophils % 87.8 % (38.7-73.9); Platelet Count 461 T/CUMM (130-400); Red Cell Distribution Width 31.2 % (9.3-17.3); White Blood Count 6.6 T/CUMM (4-12)
[2018-12-05 23:40] LABS: Albumin 1.4 G/DL (3.4-5.0); Bilirubin,Total 0.9 MG/DL (0.2-1.0); Calcium 8.9 MG/DL (8.5-10.1); Osmolality,Calculated 278.4 MOS/KG (273-304)
[2018-12-06 04:20] LABS: Platelet Estimate Normal; Polychromasia Few; Target Cells Few
[2018-12-06] MEDS ORDERED: MORPHINE 4 MG/1 ML VIAL IV PRN (05:56)
[2018-12-06] MEDS ORDERED: ONDANSETRON 4 MG/2 ML VIAL IV PRN (05:56)
[2018-12-06] MEDS: ACETAMINOPHEN 325 MG TABLET PO PRN ×3 (08:50→19:56)
[2018-12-06] MEDS: MIDODRINE 5 MG TABLET PO SCH ×3 (08:51→18:40)
[2018-12-06] MEDS ORDERED: HEPARIN 10,000 UNIT/10 ML VIAL IV PRN (15:51)
[2018-12-06] MEDS: CALCIUM ACETATE 667 MG CAPSULE PO SCH (16:05)
[2018-12-06] MEDS: SUCRALFATE 1 GM/10 ML UDCUP PO SCH ×2 (16:05→22:32)
[2018-12-06] MEDS ORDERED: KETOROLAC 30 MG/1 ML VIAL IM ONE ×2 (21:16)
[2018-12-06] MEDS: predniSONE 5 MG TABLET PO SCH (22:28)
[2018-12-06] MEDS: FLUDROCORTISONE 0.1 MG TABLET PO SCH (22:28)
[2018-12-06] MEDS: PANTOPRAZOLE 40 MG TABLET PO SCH (22:28)
[2018-12-07] MEDS: ACETAMINOPHEN 325 MG TABLET PO PRN ×2 (00:10→05:10)
[2018-12-07] MEDS ORDERED: KETOROLAC 15 MG/1 ML VIAL IM PRN (03:13)
[2018-12-07] MEDS: HEPARIN 5,000 UNIT/1 ML VIAL SUBCUT SCH ×3 (05:10→20:12)
[2018-12-07 06:08] VITALS: BP 68/26
[2018-12-07] MEDS ORDERED: LEVOTHYROXINE 50 MCG TABLET PO SCH (06:30)
[2018-12-07] MEDS: MIDODRINE 5 MG TABLET PO SCH ×2 (07:39→11:27)
[2018-12-07] MEDS ORDERED: CYANOCOBALAMIN 500 MCG TABLET PO SCH (09:00)
[2018-12-07] MEDS: SUCRALFATE 1 GM/10 ML UDCUP PO SCH ×2 (11:21→11:28)
[2018-12-07] MEDS: FLUDROCORTISONE 0.1 MG TABLET PO SCH (11:23)
[2018-12-07] MEDS: CALCIUM ACETATE 667 MG CAPSULE PO SCH ×2 (11:23→11:28)
[2018-12-07] MEDS: GABAPENTIN 100 MG CAPSULE PO SCH ×2 (11:23→18:16)
[2018-12-07] MEDS: PANTOPRAZOLE 40 MG TABLET PO SCH (11:26)
[2018-12-07] MEDS: predniSONE 5 MG TABLET PO SCH (11:26)
[2018-12-07] MEDS ORDERED: LORazepam 2 MG/1 ML VIAL IV PRN (15:24)
[2018-12-07] MEDS ORDERED: MORPHINE 4 MG/1 ML VIAL IV PRN (15:25)
== END 2018-12-08 00:49 | disposition expired | DRG 391 ==
LOC: EDUNIT# → EDBD → N.EDINP 21:57 → N.ED 21:57 → N.3E 12-06 05:03
PROVIDERS: ADMIT Internal Medicine; ATTEND Internal Medicine